=== PATIENT | female | born 1970 | race Asian ===

== ENCOUNTER 2016-06-09 19:51 | Inpatient (IN) | payer BC ==
[~2016-06-09] VITALS: Ht 157.5 cm; Wt 78.9 kg
[2016-06-09] MEDS ORDERED: [UNRECOGNIZED DRUG - CODE] TP (20:21)
[2016-06-09] MEDS ORDERED: ALEN70TA5 PO (20:21)
[2016-06-09] MEDS ORDERED: GABA-587 PO (20:21)
[2016-06-09] MEDS ORDERED: TRAM50TA PO (20:21)
[2016-06-09] MEDS ORDERED: AMIT25TA PO (20:21)
[2016-06-09] MEDS ORDERED: MECL25TA3 PO (20:21)
[2016-06-09] MEDS ORDERED: ASPI-482 PO (20:21)
[2016-06-09] MEDS ORDERED: MIRT15TA3 PO (20:21)
[2016-06-09] MEDS ORDERED: OMEP40CA5 PO (20:21)
[2016-06-09 21:46] LABS: BILIRUBIN,URINE NEGATIVE (NEG); GLUCOSE,URINE NEGATIVE (NEG); NITRITE,URINE NEGATIVE (NEG); PH,URINE 7.5; PROTEIN,URINE NEGATIVE (NEG-TRACE); UROBILINOGEN,URINE 0.2 mg/dL (0.2 mg/dL)
[2016-06-09 22:01] LABS: BACTERIA,URINE MOD /HPF (0-FEW); RBC,URINE 0 /HPF (0-2); WBC,URINE >40 /HPF (0-4)
[2016-06-09] MEDS ORDERED: FENTANYL PF 100 MCG/2 ML VIAL. IV PRN (22:15)
[2016-06-09 22:20] LABS: BASO # 0.1 x10^3/uL (0.0-0.2); BASO % 1 % (0-3); EOS % 1 % (0-3); HEMATOCRIT 38.1 % (36.0-47.0); HEMOGLOBIN 12.7 g/dL (12.0-15.5); LYMPH # 3.6 x10^3/uL (1.0-4.8); LYMPH % 22 % (24-48); MEAN CORPUSCULAR HEMOGLOBIN 26 pg (25-35); MEAN CORPUSCULAR HGB CONC 33 g/dL (31-37); MEAN CORPUSCULAR VOLUME 78 fL (79-100); MONO % 4 % (0-9); NEUT % 72 % (31-73); PLATELET COUNT 204 x10^3/uL (140-400); RED BLOOD COUNT 4.89 x10^6/uL (3.50-5.40); RED CELL DISTRIBUTION WIDTH 14.6 % (11.5-14.5); WHITE BLOOD COUNT 16.3 x10^3/uL (4.0-11.0)
[2016-06-09] MEDS ORDERED: ACETAMINOPHEN 500 MG TABLET PO ONE (22:30)
[2016-06-09] MEDS ORDERED: IV NORMAL SALINE 1000ML BAG 1,000 ML IV ONE (22:30)
[2016-06-09 22:39] LABS: CALCIUM 8.9 mg/dL (8.5-10.1); CREATININE 0.7 mg/dL (0.6-1.0); GFR 90.1; POTASSIUM 3.1 mmol/L (3.5-5.1)
[2016-06-09 22:44] LABS: ALBUMIN 3.7 g/dL (3.4-5.0); ALBUMIN/GLOBULIN RATIO 0.9 (1.0-1.7); TOTAL BILIRUBIN 1.1 mg/dL (0.2-1.0); TOTAL PROTEIN 7.8 g/dL (6.4-8.2)
--- NOTE | 2016-06-09 22:44 | ED.ADGEN ---
Past Medical History Past Medical History: Depression, Other Additional Past Medical Histor: CHRONIC HIP PAIN, CHRONIC LEFT HAND PAIN, OSTEOPOROSIS, VETIGO Past Surgical History: No Surgical History Additional Past Surgical Histo: DENIES Alcohol Use: None Drug Use: None Adult General Chief Complaint Chief Complaint: PAIN ON URINATION HPI HPI Patient is a 45 year old [woman, history of complex regional pain disorder, with persistent left-sided symptoms, who presents to the emergency department with complaint of flank pain, nausea, fever, and worsening of her chronic left- sided pain over the past several days. Patient is primarily [place] speaking, translation is assisted by family patient's request. Patient is also complaining of a mild frontal headache, denies any cough, upper respiratory low respiratory symptoms, any diarrhea or vomiting, mild lower left abdominal pain and left-sided flank pain is present no urinary complaints. Temperature in the emergency department is 100.2. She is not received any antipyretics at home. Heart rate 88, respiratory rate of 20, saturation is 98% on room air. Patient denies any injuries. She did receive her flu vaccination this year. Took tramadol and gabapentin without relief. Review of Systems Review of Systems Constitutional: Denies fever or chills. [] Eyes: Denies change in visual acuity. [] HENT: Denies nasal congestion or sore throat. [] Respiratory: Denies cough or shortness of breath. [] Cardiovascular: Denies chest pain or edema. [] GI: Denies abdominal pain, nausea, vomiting, bloody stools or diarrhea. [] : Denies dysuria. [] Musculoskeletal: Denies back pain or joint pain. [] Integument: Denies rash. [] Neurologic: Denies headache, focal weakness or sensory changes. [] Endocrine: Denies polyuria or polydipsia. [] Lymphatic: Denies swollen glands. [] Psychiatric: Denies depression or anxiety. [] Current Medications Current Medications Current Medications Medications (Trade) Dose Ordered Sig/Abel Start Time Stop Time Status Last Admin Dose Admin Acetaminophen (Tylenol) 1,000 mg 1X ONCE 06/09/16 22:30 06/09/16 22:31 DC 06/09/16 22:14 1,000 MG Azithromycin (Zithromax 500mg Ivpb For Omni) 250 ml @ 250 mls/hr 1X ONCE 06/10/16 00:30 06/10/16 00:36 DC Azithromycin 500 mg/Sodium Chloride 250 ml @ 250 mls/hr Q24H 06/10/16 21:00 06/10/16 21:00 DC Ceftriaxone Sodium 1 gm/ Sodium Chloride 50 ml @ 100 mls/hr Q24H 06/10/16 22:00 Ceftriaxone Sodium 50 ml @ 100 mls/hr 1X ONCE 06/10/16 00:30 06/10/16 00:59 DC 06/10/16 00:41 100 MLS/HR Fentanyl Citrate 50 mcg 50 mcg PRN Q15MIN PRN 06/09/16 22:15 06/10/16 22:14 06/09/16 22:14 50 MCG Sodium Chloride (Iv Sodium Chloride 0.9% 1000ml Bag) 1,000 ml @ 1,000 mls/hr 1X ONCE 06/09/16 22:30 06/09/16 23:29 DC 06/09/16 22:11 1,000 MLS/HR Allergies Allergies Allergies Coded Allergies Type Severity Reaction Last Updated Verified No Known Drug Allergies 06/09/16 No Physical Exam Physical Exam Constitutional: Well developed, well nourished, no acute distress, non-toxic appearance. [] HENT: Normocephalic, atraumatic, bilateral external ears normal, oropharynx moist, no oral exudates, nose normal. [] Eyes: PERRLA, EOMI, conjunctiva normal, no discharge. [] Neck: Normal range of motion, no tenderness, supple, no stridor. [] Cardiovascular:Heart rate regular rhythm, no murmur, S1, S2, rubs or gallops. [] Lungs & Thorax: Bilateral breath sounds clear to auscultation, no wheezing, rhonchi or rales. No chest tenderness or crepitus. [] Abdomen: Bowel sounds normal, soft, no tenderness, no rebound, rigidity, no guarding no masses, no pulsatile masses. [] Skin: Warm, dry, no erythema, no rash. [] Back: No tenderness, positive for left-sided CVA tenderness. [] Extremities: Patient complains of tenderness all patient throughout the left arm and left leg, which is consistent with her chronic pain, experiences "burning", and this region as well, no cyanosis, no clubbing, ROM intact, no edema. [] Neurologic: Alert and oriented X 3, normal motor function, normal sensory function, no focal deficits noted. [] Psychologic: Affect normal, judgement normal, mood normal. [] Current Patient Data Vital Signs Vital Signs Date Time Temp Pulse Resp B/P Pulse Ox O2 Delivery O2 Flow Rate FiO2 06/09/16 22:40 84 20 121/82 98 Room Air 06/09/16 19:51 100.2 100.2 Lab Values Laboratory Tests Test 06/09/16 21:00 06/09/16 22:10 Urine Collection Type Unknown Urine Color Yellow Urine Clarity Clear Urine pH 7.5 Urine Specific [place] <=1.005 Urine Protein Negativemg/dL (NEG-TRACE) Urine Glucose (UA) Negativemg/dL (NEG) Urine Ketones (Stick) Tracemg/dL (NEG) Urine Blood Trace (NEG) Urine Nitrite Negative (NEG) Urine Bilirubin Negative (NEG) Urine Urobilinogen Dipstick 0.2mg/dL (0.2 mg/dL) Urine Leukocyte Esterase Large (NEG) Urine RBC 0/HPF (0-2) Urine WBC >40/HPF (0-4) Urine Bacteria Mod/HPF (0-FEW) White Blood Count 16.3x10^3/uL (4.0-11.0) H Red Blood Count 4.89x10^6/uL (3.50-5.40) Hemoglobin 12.7g/dL (12.0-15.5) Hematocrit 38.1% (36.0-47.0) Mean Corpuscular Volume 78fL (79-100) L Mean Corpuscular Hemoglobin 26pg (25-35) Mean Corpuscular Hemoglobin Concent 33g/dL (31-37) Red Cell Distribution Width 14.6% (11.5-14.5) H Platelet Count 204x10^3/uL (140-400) Neutrophils (%) (Auto) 72% (31-73) Lymphocytes (%) (Auto) 22% (24-48) L Monocytes (%) (Auto) 4% (0-9) Eosinophils (%) (Auto) 1% (0-3) Basophils (%) (Auto) 1% (0-3) Neutrophils # (Auto) 11.7x10^3uL (1.8-7.7) H Lymphocytes # (Auto) 3.6x10^3/uL (1.0-4.8) Monocytes # (Auto) 0.7x10^3/uL (0.0-1.1) Eosinophils # (Auto) 0.2x10^3/uL (0.0-0.7) Basophils # (Auto) 0.1x10^3/uL (0.0-0.2) Sodium Level 139mmol/L (136-145) Potassium Level 3.1mmol/L (3.5-5.1) L Chloride Level 102mmol/L (98-107) Carbon Dioxide Level 23mmol/L (21-32) Anion Gap 14 (6-14) Blood Urea Nitrogen 7mg/dL (7-20) Creatinine 0.7mg/dL (0.6-1.0) Estimated GFR (Cockcroft-Gault) 90.1 BUN/Creatinine Ratio 10 (6-20) Glucose Level 94mg/dL (70-99) Calcium Level 8.9mg/dL (8.5-10.1) Total Bilirubin 1.1mg/dL (0.2-1.0) H Aspartate Amino Transferase (AST) 37U/L (15-37) Alanine Aminotransferase (ALT) 49U/L (14-59) Alkaline Phosphatase 61U/L (46-116) Total Protein 7.8g/dL (6.4-8.2) Albumin 3.7g/dL (3.4-5.0) Albumin/Globulin Ratio 0.9 (1.0-1.7) L Influenza Type A Antigen Negative (NEGATIVE) Influenza Type B Antigen Negative (NEGATIVE) Laboratory Tests 06/09/16 22:10 Laboratory Tests 06/09/16 22:10 EKG EKG ECG: Rhythm strip: Sinus rhythm, heart rate 82 beats minute, no ectopy. As interpreted by me. [] Radiology/Procedures Radiology/Procedures [] [facility] [address] [place] [address] IMAGING REPORT Signed PATIENT: LUIS MANUEL BATES ACCOUNT: [id number] : 1970 LOCATION: ER AGE: 45 SEX: F EXAM STATUS: REG ER ORD. PHYSICIAN: GABBIE VALENZUELA DO REASON: L flank pain PROCEDURE: ABDOMEN PELVIS WO CONTRAST PROCEDURE CT abdomen and pelvis without intravenous contrast. HISTORY Severe left flank pain. TECHNIQUE Helical CT of the abdomen and pelvis was performed without intravenous or oral contrast. Exposure: One or more of the following individualized dose reduction techniques were utilized for this examination: 1. Automated exposure control. 2. Adjustment of the mA and/or kV according to patient size. 3. Use of iterative reconstruction technique. COMPARISON None. FINDINGS Evaluation of solid organs is limited by lack of intravenous contrast. Evaluation of enteric structures may be limited by lack of oral contrast. Fatty liver disease is seen. Spleen, pancreas, gallbladder, and bilateral adrenal glands are unremarkable. Bilateral kidneys and ureters are free of stone or obstruction. No bowel obstruction or inflammation is seen. Appendix is without evidence of inflammation. Urinary bladder is unremarkable. Uterus and adnexa have unremarkable CT appearance. Urinary bladder is unremarkable. No free air or free fluid is seen in the abdomen or pelvis. IMPRESSION 1. No acute abnormality identified in the abdomen or pelvis. 2. No evidence of urinary stone. 3. Fatty liver disease. Electronically signed by: Marco Gloria MD (Jun 09, 2016 23:25:29) DICTATED and SIGNED BY: MARCO GLORIA MD DATE: 06/09/16 0245 CC: GABBIE VALENZUELA DO; JACOB GOETZ MD ~ Course & Med Decision Making Course & Med Decision Making Pertinent Labs and Imaging studies reviewed. (See chart for details) Patient mildly diaphoretic, appears uncomfortable in the emergency department. Left sided flank pain, with fever, urinalysis reveals greater than 40 WBCs with bacteria, leukocytosis noted with a white count of 16.2. Concern for possible pyelonephritis, due to patient's discomfort with flank pain and abdominal pain with nausea, laboratory studies, CT CT of the abdomen and pelvis obtained to rule out any evidence of infection or stone. CT reveals no evidence of acute abnormalities. On reevaluation, patient states she is feeling somewhat better after receiving pain medication IV fluids, antinausea medication. I did discuss findings with patient, at this time she still is expressing significant discomfort, nausea, and is agreeable for admission to the hospital for treatment of fever, pain, and IV fluids and antibiotics for pyelonephritis. Ceftriaxone initiated in the ED. Admit to Dr. Chase of internal medicine, full admission to the to the medical surgical floor, as her vital signs remained stable at this point, with bridge orders entered per request. Dragon Disclaimer Dragon Disclaimer This electronic medical record was generated, in whole or in part, using a voice recognition dictation system. Departure Impression: Primary Impression: Pyelonephritis Additional Impression: Complex regional pain syndrome Disposition: ADMITTED INPATIENT Admitting Physician: Leila Chase Condition: IMPROVED Problem Qualifiers Additional Impression: Complex regional pain syndrome Complex regional pain syndrome affected site: lower extremity Laterality: left GABBIE VALENZUELA DO Jun 09, 2016 22:43
[2016-06-09 22:46] LABS: OBC FLU VALID
--- NOTE | 2016-06-09 23:26 | RAD ---
PROCEDURE CT abdomen and pelvis without intravenous contrast. HISTORY Severe left flank pain. TECHNIQUE Helical CT of the abdomen and pelvis was performed without intravenous or oral contrast. Exposure: One or more of the following individualized dose reduction techniques were utilized for this examination: 1. Automated exposure control. 2. Adjustment of the mA and/or kV according to patient size. 3. Use of iterative reconstruction technique. COMPARISON None. FINDINGS Evaluation of solid organs is limited by lack of intravenous contrast. Evaluation of enteric structures may be limited by lack of oral contrast. Fatty liver disease is seen. Spleen, pancreas, gallbladder, and bilateral adrenal glands are unremarkable. Bilateral kidneys and ureters are free of stone or obstruction. No bowel obstruction or inflammation is seen. Appendix is without evidence of inflammation. Urinary bladder is unremarkable. Uterus and adnexa have unremarkable CT appearance. Urinary bladder is unremarkable. No free air or free fluid is seen in the abdomen or pelvis. IMPRESSION 1. No acute abnormality identified in the abdomen or pelvis. 2. No evidence of urinary stone. 3. Fatty liver disease. Electronically signed by: Marco De León MD (Jun 09, 2016 23:25:29)
[2016-06-10] MEDS ORDERED: CEFTRIAXONE SODIUM 1 GM in IV NORMAL SALINE 100ML 100 ML IV SCH ×2
[2016-06-10] MEDS ORDERED: AZITHRMYCN 500MG IVPB FOR OMNI 250 ML IV ONE (00:30)
[2016-06-10] MEDS ORDERED: CEFTRIAXONE 1GM IVPB FOR OMNI 50 ML IV ONE (00:30)
[2016-06-10] MEDS ORDERED: ONDANSETRON PF 4 MG/2 ML VIAL. IV PRN ×2 (01:15→14:15)
[2016-06-10] MEDS: IV NORMAL SALINE 1000ML BAG 1,000 ML IV SCH ×3 (01:43→16:28)
[2016-06-10 02:00] VITALS: BP 116/67
[2016-06-10] MEDS ORDERED: POTASSIUM CHLORIDE 20 MEQ/15 ML ORAL LIQUID. PO ONE (02:00)
[2016-06-10] MEDS: MORPHINE SULFATE 4 MG/ML DISP.SYRIN. IV PRN ×2 (03:03→07:48)
[2016-06-10 07:00] VITALS: BP 96/61
[2016-06-10 11:00] VITALS: BP 107/68
[2016-06-10] MEDS ORDERED: TRAMADOL 50 MG TABLET. PO PRN (12:30)
[2016-06-10] MEDS ORDERED: MECLIZINE HCL 12.5 MG TABLET. PO PRN (12:45)
[2016-06-10] MEDS: ASPIRIN ENTERIC COATED 81 MG TABLET.DR. PO SCH (12:53)
--- NOTE | 2016-06-10 13:18 | RAD ---
Pelvis with both hips, 3 views, 06/10/2016: History: Bilateral hip pain No fracture or dislocation is identified. No destructive bony lesion is seen. The hip joints are fairly well-maintained with only mild marginal spurring. The periarticular soft tissues are unremarkable. IMPRESSION: No acute pelvic or hip abnormality is detected.
[2016-06-10 13:19] LABS: CREATINE KINASE 61 U/L (26-192)
[2016-06-10 13:20] LABS: CKMB MASS < 0.5 ng/mL (0.0-3.6)
[2016-06-10] MEDS: GABAPENTIN 400 MG CAPSULE. PO SCH ×2 (13:53→19:49)
[2016-06-10] MEDS: ACETAMINOPHEN 325 MG TABLET. PO PRN ×2 (13:58→19:48)
--- NOTE | 2016-06-10 14:20 | PDOC1 ---
History and Physical Date of Admission Date of Admission 06/10/16 Identification/Chief Complaint Chief Complaint whole body pain, bl hip pain Problems: Source Source: Chart review, Patient History of Present Illness History of Present Illness HPI Patient is a 45 year old [woman, history of complex regional pain disorder, with persistent left-sided symptoms, comes for worsening pain yesterday. Pt doesnot speak [place], from [employer], her son is translating at bedside. Son said pt has been having whole body pain for 2 years, fu with [facility],left shoulder, hip pain is worse that right side. Basically pt feels severe whole body pain, shoulder pain, bl hip pain, BL lower ABD pain, bl legs pain, ( not knee pain) nausea, no Vomiting, fever, chills, dysuria, hematuria, urgency ,frequency. abd CT neg. T 100.2 in ER. Past Medical History Past Medical History , with persistent left-sided symptoms, comes for worsening pain yesterday. Pt doesnot speak [place], from [employer], her s Past Surgical History Past Surgical History: No pertinent history Family History Family History: No Significant Social History Smoke: No ALCOHOL: none Drugs: None Current Problem List Problem List Problems Medical Problems: (1) Complex regional pain syndrome Status: Acute (2) Pyelonephritis Status: Acute Current Medications Current Medications Current Medications Medications (Trade) Dose Ordered Sig/Abel Start Time Stop Time Status Last Admin Dose Admin Acetaminophen (Tylenol) 650 mg PRN Q4HRS PRN 06/10/16 01:15 06/11/16 01:14 06/10/16 13:58 650 MG Amitriptyline HCl (Elavil) 25 mg QHS 06/10/16 21:00 Aspirin (Ecotrin) 81 mg DAILY 06/10/16 13:00 06/10/16 12:53 81 MG Azithromycin (Zithromax 500mg Ivpb For Omni) 250 ml @ 250 mls/hr 1X ONCE 06/10/16 00:30 06/10/16 00:36 DC Azithromycin 500 mg/Sodium Chloride 250 ml @ 250 mls/hr Q24H 06/10/16 21:00 06/10/16 21:00 DC Ceftriaxone Sodium 1 gm/ Sodium Chloride 50 ml @ 100 mls/hr Q24H 06/10/16 22:00 Ceftriaxone Sodium 50 ml @ 100 mls/hr 1X ONCE 06/10/16 00:30 06/10/16 00:59 DC 06/10/16 00:41 100 MLS/HR Fentanyl Citrate 50 mcg 50 mcg PRN Q15MIN PRN 06/09/16 22:15 06/10/16 03:00 DC 06/09/16 22:14 50 MCG Gabapentin (Neurontin) 400 mg TID 06/10/16 14:00 Meclizine HCl (Antivert) 25 mg PRN TID PRN 06/10/16 12:45 Mirtazapine (Remeron) 15 mg QHS 06/10/16 21:00 Morphine Sulfate 4 mg 4 mg PRN Q2HR PRN 06/10/16 01:15 06/11/16 01:14 06/10/16 07:48 4 MG Non-Formulary Medication 1 tab WEEKLY 06/17/16 09:00 06/17/16 09:00 DC Ondansetron HCl (Zofran) 4 mg PRN Q8HRS PRN 06/10/16 01:15 06/11/16 01:14 06/10/16 07:49 4 MG Pantoprazole Sodium (Protonix) 40 mg DAILYAC 06/10/16 16:30 Potassium Chloride (KCl Oral Soln) 40 meq 1X ONCE 06/10/16 02:00 06/10/16 02:01 DC 06/10/16 03:02 40 MEQ Sodium Chloride (Iv Sodium Chloride 0.9% 1000ml Bag) 1,000 ml @ 125 mls/hr Q8H 06/10/16 01:14 06/11/16 01:13 06/10/16 03:04 125 MLS/HR Tramadol HCl (Ultram) 50 mg PRN Q8HRS PRN 06/10/16 12:30 Allergies Allergies Allergies Coded Allergies Type Severity Reaction Last Updated Verified No Known Drug Allergies 06/09/16 No ROS Review of System CONSTITUTIONAL: No fever or chills EYES: No recent changes SKIN: No rash or itching CARDIOVASCULAR: No chest pain, syncope, palpitations, or edema RESPIRATORY: No SOB or cough GASTROINTESTINAL: No nausea, vomiting or abdominal pain NEUROLOGICAL: No headaches or weakness ENDOCRINE: No cold or heat intolerance GENITOURINARY: No urgency or frequency of urination MUSCULOSKELETAL: No back pain or joint pain LYMPHATICS: No enlarged lymph nodes PSYCHIATRIC: No anxiety or depression Physical Exam Physical Exam GEN.: No apparent distress. Alert and oriented. HEENT: Head is normocephalic, atraumatic NECK: Supple. LUNGS: Clear to auscultation. HEART: RRR, S1, S2 present. Peripheral pulses intact ABDOMEN: Soft, Positive bowel sounds. EXTREMITIES: Without any cyanosis. NEUROLOGIC: Normal speech, normal tone PSYCHIATRIC: Normal affect, normal mood. SKIN: No ulcerations tenderness at bl shoulder, bl lower abd , hips, bl legs. Vitals Vitals Vital Signs Date Time Temp Pulse Resp B/P Pulse Ox O2 Delivery O2 Flow Rate FiO2 06/10/16 11:00 97.6 56 18 107/68 100 Nasal Cannula 2.0 97.6 Labs Labs Laboratory Tests Test 06/09/16 21:00 06/09/16 22:10 06/10/16 12:40 Urine Collection Type Unknown Urine Color Yellow Urine Clarity Clear Urine pH 7.5 Urine Specific [place] <=1.005 Urine Protein Negativemg/dL (NEG-TRACE) Urine Glucose (UA) Negativemg/dL (NEG) Urine Ketones (Stick) Tracemg/dL (NEG) Urine Blood Trace (NEG) Urine Nitrite Negative (NEG) Urine Bilirubin Negative (NEG) Urine Urobilinogen Dipstick 0.2mg/dL (0.2 mg/dL) Urine Leukocyte Esterase Large (NEG) Urine RBC 0/HPF (0-2) Urine WBC >40/HPF (0-4) Urine Bacteria Mod/HPF (0-FEW) White Blood Count 16.3x10^3/uL (4.0-11.0) Red Blood Count 4.89x10^6/uL (3.50-5.40) Hemoglobin 12.7g/dL (12.0-15.5) Hematocrit 38.1% (36.0-47.0) Mean Corpuscular Volume 78fL (79-100) Mean Corpuscular Hemoglobin 26pg (25-35) Mean Corpuscular Hemoglobin Concent 33g/dL (31-37) Red Cell Distribution Width 14.6% (11.5-14.5) Platelet Count 204x10^3/uL (140-400) Neutrophils (%) (Auto) 72% (31-73) Lymphocytes (%) (Auto) 22% (24-48) Monocytes (%) (Auto) 4% (0-9) Eosinophils (%) (Auto) 1% (0-3) Basophils (%) (Auto) 1% (0-3) Neutrophils # (Auto) 11.7x10^3uL (1.8-7.7) Lymphocytes # (Auto) 3.6x10^3/uL (1.0-4.8) Monocytes # (Auto) 0.7x10^3/uL (0.0-1.1) Eosinophils # (Auto) 0.2x10^3/uL (0.0-0.7) Basophils # (Auto) 0.1x10^3/uL (0.0-0.2) Sodium Level 139mmol/L (136-145) Potassium Level 3.1mmol/L (3.5-5.1) Chloride Level 102mmol/L (98-107) Carbon Dioxide Level 23mmol/L (21-32) Anion Gap 14 (6-14) Blood Urea Nitrogen 7mg/dL (7-20) Creatinine 0.7mg/dL (0.6-1.0) Estimated GFR (Cockcroft-Gault) 90.1 BUN/Creatinine Ratio 10 (6-20) Glucose Level 94mg/dL (70-99) Calcium Level 8.9mg/dL (8.5-10.1) Total Bilirubin 1.1mg/dL (0.2-1.0) Aspartate Amino Transf (AST/SGOT) 37U/L (15-37) Alanine Aminotransferase (ALT/SGPT) 49U/L (14-59) Alkaline Phosphatase 61U/L (46-116) Total Protein 7.8g/dL (6.4-8.2) Albumin 3.7g/dL (3.4-5.0) Albumin/Globulin Ratio 0.9 (1.0-1.7) Influenza Type A Antigen Negative (NEGATIVE) Influenza Type B Antigen Negative (NEGATIVE) Erythrocyte Sedimentation Rate 39 (0-25) Creatine Kinase 61U/L (26-192) Creatine Kinase MB (Mass) < 0.5ng/mL (0.0-3.6) Creatine Kinase MB Relative Index % (0-4) Laboratory Tests Test 06/09/16 21:00 06/09/16 22:10 06/10/16 12:40 Urine Collection Type Unknown Urine Color Yellow Urine Clarity Clear Urine pH 7.5 Urine Specific [place] <=1.005 Urine Protein Negativemg/dL (NEG-TRACE) Urine Glucose (UA) Negativemg/dL (NEG) Urine Ketones (Stick) Tracemg/dL (NEG) Urine Blood Trace (NEG) Urine Nitrite Negative (NEG) Urine Bilirubin Negative (NEG) Urine Urobilinogen Dipstick 0.2mg/dL (0.2 mg/dL) Urine Leukocyte Esterase Large (NEG) Urine RBC 0/HPF (0-2) Urine WBC >40/HPF (0-4) Urine Bacteria Mod/HPF (0-FEW) White Blood Count 16.3x10^3/uL (4.0-11.0) Red Blood Count 4.89x10^6/uL (3.50-5.40) Hemoglobin 12.7g/dL (12.0-15.5) Hematocrit 38.1% (36.0-47.0) Mean Corpuscular Volume 78fL (79-100) Mean Corpuscular Hemoglobin 26pg (25-35) Mean Corpuscular Hemoglobin Concent 33g/dL (31-37) Red Cell Distribution Width 14.6% (11.5-14.5) Platelet Count 204x10^3/uL (140-400) Neutrophils (%) (Auto) 72% (31-73) Lymphocytes (%) (Auto) 22% (24-48) Monocytes (%) (Auto) 4% (0-9) Eosinophils (%) (Auto) 1% (0-3) Basophils (%) (Auto) 1% (0-3) Neutrophils # (Auto) 11.7x10^3uL (1.8-7.7) Lymphocytes # (Auto) 3.6x10^3/uL (1.0-4.8) Monocytes # (Auto) 0.7x10^3/uL (0.0-1.1) Eosinophils # (Auto) 0.2x10^3/uL (0.0-0.7) Basophils # (Auto) 0.1x10^3/uL (0.0-0.2) Sodium Level 139mmol/L (136-145) Potassium Level 3.1mmol/L (3.5-5.1) Chloride Level 102mmol/L (98-107) Carbon Dioxide Level 23mmol/L (21-32) Anion Gap 14 (6-14) Blood Urea Nitrogen 7mg/dL (7-20) Creatinine 0.7mg/dL (0.6-1.0) Estimated GFR (Cockcroft-Gault) 90.1 BUN/Creatinine Ratio 10 (6-20) Glucose Level 94mg/dL (70-99) Calcium Level 8.9mg/dL (8.5-10.1) Total Bilirubin 1.1mg/dL (0.2-1.0) Aspartate Amino Transf (AST/SGOT) 37U/L (15-37) Alanine Aminotransferase (ALT/SGPT) 49U/L (14-59) Alkaline Phosphatase 61U/L (46-116) Total Protein 7.8g/dL (6.4-8.2) Albumin 3.7g/dL (3.4-5.0) Albumin/Globulin Ratio 0.9 (1.0-1.7) Influenza Type A Antigen Negative (NEGATIVE) Influenza Type B Antigen Negative (NEGATIVE) Erythrocyte Sedimentation Rate 39 (0-25) Creatine Kinase 61U/L (26-192) Creatine Kinase MB (Mass) < 0.5ng/mL (0.0-3.6) Creatine Kinase MB Relative Index % (0-4) VTE Prophylaxis Ordered VTE Prophylaxis Devices: Yes VTE Pharmacological Prophylaxi: Yes Assessment/Plan Assessment/Plan 1. worsening chronic complex regional pain disorder, fibromyalgia? 2. possible UTI with pyelonephritis 3. obesity 4. chronic bl hip and left hand pain 5. osteoporesis 6. h/o vertigo 7. depression 8. hypokalemia plan; 1. dr. Wyman consult 2. ptot 3. cont home meds, off prednisone now 4. fu ucx, ceftriaxone for now hip xr normal CXR 5. dvt ppx replete K labs tmr ELISEO TOMLIN MD Jun 10, 2016 14:20
[2016-06-10 15:00] VITALS: BP 121/70
[2016-06-10] MEDS: ENOXAPARIN 40 MG/0.4 ML DISP.SYRIN. SQ SCH (16:06)
[2016-06-10] MEDS: PANTOPRAZOLE 40 MG TABLET. PO SCH (16:07)
[2016-06-10 18:12] LABS: RHEUMATOID FACTOR <10.0 IU/mL (0.0-13.9)
[2016-06-10] MEDS ORDERED: methylPREDNISolone ACETATE 40 MG/ML VIAL. IM ONE (18:30)
[2016-06-10] MEDS ORDERED: BUPIVACAINE MPF 0.25% 10 ML VIAL. IJ ONE (18:30)
[2016-06-10 19:33] VITALS: BP 92/54
[2016-06-10] MEDS ORDERED: AZITHROMYCIN 500 MG in IV NORMAL SALINE 250ML 250 ML IV SCH (21:00)
[2016-06-10] MEDS: MIRTAZAPINE 15 MG TABLET PO SCH (21:22)
[2016-06-10] MEDS: AMITRIPTYLINE HCL 25 MG TABLET PO SCH (21:22)
[2016-06-10] MEDS: CEFTRIAXONE SODIUM 1 GM in IV NORMAL SALINE 50ML 50 ML IV SCH (22:32)
[2016-06-10 23:37] VITALS: BP 90/40
[2016-06-11] VITALS (7 sets, daily range): BP systolic 81–126; BP diastolic 51–84
[2016-06-11] MEDS: ACETAMINOPHEN 325 MG TABLET. PO PRN ×2 (02:30→21:18)
[2016-06-11 06:54] LABS: BASO % 0 % (0-3); EOS % 5 % (0-3); HEMATOCRIT 35.7 % (36.0-47.0); HEMOGLOBIN 11.7 g/dL (12.0-15.5); LYMPH # 2.2 x10^3/uL (1.0-4.8); LYMPH % 27 % (24-48); MEAN CORPUSCULAR HEMOGLOBIN 26 pg (25-35); MEAN CORPUSCULAR HGB CONC 33 g/dL (31-37); MEAN CORPUSCULAR VOLUME 79 fL (79-100); MONO % 7 % (0-9); NEUT % 61 % (31-73); PLATELET COUNT 184 x10^3/uL (140-400); RED BLOOD COUNT 4.51 x10^6/uL (3.50-5.40); RED CELL DISTRIBUTION WIDTH 14.7 % (11.5-14.5); WHITE BLOOD COUNT 8.4 x10^3/uL (4.0-11.0)
--- NOTE | 2016-06-11 07:03 | CONS ---
DATE OF CONSULTATION: 06/10/2016 ATTENDING PHYSICIAN: Dr. Chase. The patient was seen at the request of Dr. Chase for rehab evaluation. She is in room #400. HISTORY OF PRESENT ILLNESS: This is a 45-year-old, [place], right-handed female patient, with numbness, weakness and pain over left side of her body going on for about 2 years, being followed at [facility]. The patient was admitted through the Emergency Room this afternoon with whole body pain mainly on the left side. She is having difficulty with her left hip pain interfering with her mobility. The patient was found with urinary tract infection and being treated for it. The patient denies any trouble with her bowel or bladder control. She admits some difficulty with swallowing. The patient lives with her and children in [facility]. HANS ZIEGLER MD DR: NILDA/nts JOB#: [id number] / [id number]
[2016-06-11 07:06] LABS: CALCIUM 8.4 mg/dL (8.5-10.1); CREATININE 0.6 mg/dL (0.6-1.0); GFR 107.6; POTASSIUM 4.1 mmol/L (3.5-5.1)
--- NOTE | 2016-06-11 07:19 | CONS ---
DATE OF CONSULTATION: 06/10/2016 ATTENDING PHYSICIAN: Dr. Chase. The patient was seen at the request of Dr. Chase for rehab evaluation. HISTORY OF PRESENT ILLNESS: This is a 45-year-old, right-handed female from [facility], who has [place] living [place] this country [place] about 8 [place]. The patient with left-sided numbness, weakness and pain going on for about 2 years, being followed at [facility]. The patient lives at home with her family, had a flight of stairs to manage, and she has been basically independent with her mobility and most of the aspects of her self-care despite significant weakness of her left hand. She admits some difficulty with swallowing, but not on a special diet. She was admitted through the Emergency Room this afternoon with whole body pain mainly on the left side. The patient denies any recent fall, but sometimes she falls down. The patient is being followed with a diagnosis of urinary tract infection, but she denies any dysuria or urinary frequency or urgency. The patient denies any trouble with bowel or bladder control. The patient admits left hip pain interfering with her mobility recently. She had radiological studies which failed to reveal any acute abnormality around hip or pelvis or abdomen. PHYSICAL EXAMINATION: Today revealed a middle-aged female. She is alert, oriented to time, place, person and circumstance, and follows commands appropriately, moves all 4 extremities voluntarily. The patient had no voluntary movements of her left hand fingers except thumb. She had significant weakness of left upper ____ muscles, more so of hand intrinsic muscles. The patient overall had 4+/5 grade muscle strength in her right upper extremity and both lower extremities. Deep tendon reflexes are decreased overall. She had decreased touch and pinprick sensation over left side of her body. She had positive Tinel sign over right median nerve at the wrist and over ulnar nerve at the wrist and elbow. Negative Tinel sign over left median nerve at the wrist and over ulnar nerve at the wrist and elbow. She had tenderness to palpation over left cervical paraspinal muscles extending over to posterior shoulder girdle muscles, over left shoulder and over thoracic and lumbar paraspinal muscles extending over to sacroiliac joint area and left trochanteric bursa. Pain-free range of motion on both hip joints. Crepitus on range of motion of both knee joints without any obvious knee joint effusion. Straight leg raising test is negative bilaterally. She had some pain on range of motion of left shoulder. Her skin is intact at this time. She is independent with bed mobility and transfers. I have not tested her ambulation skills at this time. ASSESSMENT: A middle-aged female with left hemiparesis, with associated cervical, paraspinal, posterior shoulder girdle, thoracic and lumbar paraspinal muscle strain, and left shoulder tendinitis, and probable associated degenerative disk disease of lumbar vertebrae without any clinical evidence of ongoing lumbar radiculopathy, left trochanteric bursitis, degenerative joint disease of her knees without much pain, urinary tract infection, and some difficulty with swallowing. RECOMMENDATIONS: At her request, I have injected painful left trochanteric bursa with Marcaine and Depo-Medrol solution under aseptic skin technique after skin preparation using alcohol swab. She tolerated the procedure satisfactorily. Agree with the plan for Physical Therapy, Occupational Therapy and Speech Pathology to see her. Hopefully home with outpatient followup when she is medically stable. To obtain records from [facility] to make sure she does not have any cerebrovascular accident. HANS ZIEGLER MD DR: NILDA/shefali JOB#: [id number] / [id number]
[2016-06-11] MEDS: GABAPENTIN 400 MG CAPSULE. PO SCH ×3 (07:51→21:00)
[2016-06-11] MEDS: ASPIRIN ENTERIC COATED 81 MG TABLET.DR. PO SCH (07:51)
[2016-06-11] MEDS: PANTOPRAZOLE 40 MG TABLET. PO SCH (07:51)
[2016-06-11] MEDS ORDERED: methylPREDNISolone ACETATE 40 MG/ML VIAL. IM ONE (10:30)
[2016-06-11] MEDS ORDERED: BUPIVACAINE MPF 0.25% 10 ML VIAL. IJ ONE (10:30)
--- NOTE | 2016-06-11 10:41 | RAD ---
Indication cough. Weakness. PA and lateral views of the chest were obtained. Comparison is made to an examination 11/18/2009. Heart size is at the upper limits of normal. There is no congestive heart failure. There is no focal infiltrate. Significant pleural fluid is not present. There is no pneumothorax. The stomach is distended with fluid and gas. IMPRESSION: No acute or focal process is seen in the chest
--- NOTE | 2016-06-11 11:07 | PDOC ---
PROGRESS NOTES Subjective Subjective She feels better with left hip injection and admits continued neck and shoulder pain and would like to have injection in her neck. Objective Objective Vital Signs Date Time Temp Pulse Resp B/P Pulse Ox O2 Delivery O2 Flow Rate FiO2 06/11/16 07:35 Room Air 06/11/16 07:00 97.6 42 16 111/65 96 97.6 06/11/16 02:58 2.0 Intake and Output 06/11/16 07:00 Intake Total 2534 ml Balance 2534 ml Intake Oral 500 ml IV Total 2034 ml # Voids 6 Physical Exam Physical Exam She is alert,comfortable and her 3 children at bedside to help with communication.She is independent with her mobility and most of her self care but she can use a cane to walk to help with healing of her left trochanteric bursitis.She is being treated with diagnosis of regional pain syndrome by [facility] neurology. I am not sure that can explain her numbness left side of her body and face and weakness of her left hand.She apparently had radiologic studies to rule out CVA.I am not sure she had any radiologic studies of her cervical and lumbar spine.She had tenderness to palpation over left cervical,thoracic and lumbar paraspinal,left posterior shoulder girdle muscles,sacroiliac joint.SLR test is negative. She had some limitation of left shoulder at extremes of abduction and external rotation. Assessment Assessment Problems Medical Problems: (1) Complex regional pain syndrome Status: Acute (2) Pyelonephritis Status: Acute Plan Plan of Care At her request,I have injected painful left cervical paraspinal muscles under aseptic skin technique,and she tolerated the procedure satisfactorily without any side effects.Home with out patient follow up when medically stable.She can benefit from stronger narcotic like tylenol with codeine#3,or hydrocodone for pain disturbing her sleep as she is having sleep disturbance from pain despite taking amitriptyline and gabapentin and tramadol.I will be glad to see her for follow up on as needed basis. Comment Review of Relevant I have reviewed the following items yvonne (where applicable) has been applied. Labs Laboratory Tests Test 06/09/16 21:00 06/09/16 22:10 06/10/16 12:40 06/11/16 05:50 Urine Collection Type Unknown Urine Color Yellow Urine Clarity Clear Urine pH 7.5 Urine Specific [place] <=1.005 Urine Protein Negativemg/dL (NEG-TRACE) Urine Glucose (UA) Negativemg/dL (NEG) Urine Ketones (Stick) Tracemg/dL (NEG) Urine Blood Trace (NEG) Urine Nitrite Negative (NEG) Urine Bilirubin Negative (NEG) Urine Urobilinogen Dipstick 0.2mg/dL (0.2 mg/dL) Urine Leukocyte Esterase Large (NEG) Urine RBC 0/HPF (0-2) Urine WBC >40/HPF (0-4) Urine Bacteria Mod/HPF (0-FEW) White Blood Count 16.3x10^3/uL (4.0-11.0) 8.4x10^3/uL (4.0-11.0) Red Blood Count 4.89x10^6/uL (3.50-5.40) 4.51x10^6/uL (3.50-5.40) Hemoglobin 12.7g/dL (12.0-15.5) 11.7g/dL (12.0-15.5) Hematocrit 38.1% (36.0-47.0) 35.7% (36.0-47.0) Mean Corpuscular Volume 78fL (79-100) 79fL (79-100) Mean Corpuscular Hemoglobin 26pg (25-35) 26pg (25-35) Mean Corpuscular Hemoglobin Concent 33g/dL (31-37) 33g/dL (31-37) Red Cell Distribution Width 14.6% (11.5-14.5) 14.7% (11.5-14.5) Platelet Count 204x10^3/uL (140-400) 184x10^3/uL (140-400) Neutrophils (%) (Auto) 72% (31-73) 61% (31-73) Lymphocytes (%) (Auto) 22% (24-48) 27% (24-48) Monocytes (%) (Auto) 4% (0-9) 7% (0-9) Eosinophils (%) (Auto) 1% (0-3) 5% (0-3) Basophils (%) (Auto) 1% (0-3) 0% (0-3) Neutrophils # (Auto) 11.7x10^3uL (1.8-7.7) 5.1x10^3uL (1.8-7.7) Lymphocytes # (Auto) 3.6x10^3/uL (1.0-4.8) 2.2x10^3/uL (1.0-4.8) Monocytes # (Auto) 0.7x10^3/uL (0.0-1.1) 0.6x10^3/uL (0.0-1.1) Eosinophils # (Auto) 0.2x10^3/uL (0.0-0.7) 0.4x10^3/uL (0.0-0.7) Basophils # (Auto) 0.1x10^3/uL (0.0-0.2) 0.0x10^3/uL (0.0-0.2) Sodium Level 139mmol/L (136-145) 144mmol/L (136-145) Potassium Level 3.1mmol/L (3.5-5.1) 4.1mmol/L (3.5-5.1) Chloride Level 102mmol/L (98-107) 109mmol/L (98-107) Carbon Dioxide Level 23mmol/L (21-32) 25mmol/L (21-32) Anion Gap 14 (6-14) 10 (6-14) Blood Urea Nitrogen 7mg/dL (7-20) 3mg/dL (7-20) Creatinine 0.7mg/dL (0.6-1.0) 0.6mg/dL (0.6-1.0) Estimated GFR (Cockcroft-Gault) 90.1 107.6 BUN/Creatinine Ratio 10 (6-20) Glucose Level 94mg/dL (70-99) 97mg/dL (70-99) Calcium Level 8.9mg/dL (8.5-10.1) 8.4mg/dL (8.5-10.1) Total Bilirubin 1.1mg/dL (0.2-1.0) Aspartate Amino Transf (AST/SGOT) 37U/L (15-37) Alanine Aminotransferase (ALT/SGPT) 49U/L (14-59) Alkaline Phosphatase 61U/L (46-116) Total Protein 7.8g/dL (6.4-8.2) Albumin 3.7g/dL (3.4-5.0) Albumin/Globulin Ratio 0.9 (1.0-1.7) Influenza Type A Antigen Negative (NEGATIVE) Influenza Type B Antigen Negative (NEGATIVE) Erythrocyte Sedimentation Rate 39 (0-25) Creatine Kinase 61U/L (26-192) Creatine Kinase MB (Mass) < 0.5ng/mL (0.0-3.6) Creatine Kinase MB Relative Index % (0-4) Rheumatoid Factor <10.0IU/mL (0.0-13.9) Laboratory Tests Test 06/10/16 12:40 06/11/16 05:50 Erythrocyte Sedimentation Rate 39 (0-25) Creatine Kinase 61U/L (26-192) Creatine Kinase MB (Mass) < 0.5ng/mL (0.0-3.6) Creatine Kinase MB Relative Index % (0-4) Rheumatoid Factor <10.0IU/mL (0.0-13.9) White Blood Count 8.4x10^3/uL (4.0-11.0) Red Blood Count 4.51x10^6/uL (3.50-5.40) Hemoglobin 11.7g/dL (12.0-15.5) Hematocrit 35.7% (36.0-47.0) Mean Corpuscular Volume 79fL (79-100) Mean Corpuscular Hemoglobin 26pg (25-35) Mean Corpuscular Hemoglobin Concent 33g/dL (31-37) Red Cell Distribution Width 14.7% (11.5-14.5) Platelet Count 184x10^3/uL (140-400) Neutrophils (%) (Auto) 61% (31-73) Lymphocytes (%) (Auto) 27% (24-48) Monocytes (%) (Auto) 7% (0-9) Eosinophils (%) (Auto) 5% (0-3) Basophils (%) (Auto) 0% (0-3) Neutrophils # (Auto) 5.1x10^3uL (1.8-7.7) Lymphocytes # (Auto) 2.2x10^3/uL (1.0-4.8) Monocytes # (Auto) 0.6x10^3/uL (0.0-1.1) Eosinophils # (Auto) 0.4x10^3/uL (0.0-0.7) Basophils # (Auto) 0.0x10^3/uL (0.0-0.2) Sodium Level 144mmol/L (136-145) Potassium Level 4.1mmol/L (3.5-5.1) Chloride Level 109mmol/L (98-107) Carbon Dioxide Level 25mmol/L (21-32) Anion Gap 10 (6-14) Blood Urea Nitrogen 3mg/dL (7-20) Creatinine 0.6mg/dL (0.6-1.0) Estimated GFR (Cockcroft-Gault) 107.6 Glucose Level 97mg/dL (70-99) Calcium Level 8.4mg/dL (8.5-10.1) Microbiology 06/09/16 Urine Culture - Preliminary, Resulted 06/09/16 Urine Culture Result 1 (URIEL) - Preliminary, Resulted Medications Current Medications Sodium Chloride (Iv Sodium Chloride 0.9% 1000ml Bag) 1,000 ml @ 1,000 mls/hr 1X ONCE IV Last administered on 06/09/16 22:11; Start 06/09/16 at 22:30; Stop 06/09/16 at 23:29; Status DC Acetaminophen (Tylenol) 1,000 mg 1X ONCE PO Last administered on 06/09/16 22: 14; Start 06/09/16 at 22:30; Stop 06/09/16 at 22:31; Status DC Fentanyl Citrate 50 mcg 50 mcg PRN Q15MIN PRN IV PAIN GREATER THAN 3/10 Last administered on 06/09/16 22:14; Start 06/09/16 at 22:15; Stop 06/10/16 at 03:00 ; Status DC Ceftriaxone Sodium 1 gm/ Sodium Chloride 100 ml @ 200 mls/hr Q24H IV ; Start at 00:00; Status UNV Azithromycin 500 mg/Sodium Chloride 250 ml @ 250 mls/hr Q24H IV ; Start at 21:00; Stop 06/10/16 at 21:00; Status DC Ceftriaxone Sodium 50 ml @ 100 mls/hr 1X ONCE IV Last administered on 00:41; Start 06/10/16 at 00:30; Stop 06/10/16 at 00:59; Status DC Ceftriaxone Sodium 1 gm/ Sodium Chloride 50 ml @ 100 mls/hr Q24H IV Last administered on 06/10/16 22:32; Start 06/10/16 at 22:00 Azithromycin (Zithromax 500mg Ivpb For Omni) 250 ml @ 250 mls/hr 1X ONCE IV ; Start 06/10/16 at 00:30; Stop 06/10/16 at 00:36; Status DC Ondansetron HCl (Zofran) 4 mg PRN Q8HRS PRN IV NAUSEA/VOMITING Last administered on 06/10/16 07:49; Start 06/10/16 at 01:15; Stop 06/11/16 at 01:14 ; Status DC Morphine Sulfate 4 mg 4 mg PRN Q2HR PRN IV SEVERE PAIN Last administered on 07:48; Start 06/10/16 at 01:15; Stop 06/11/16 at 01:14; Status DC Sodium Chloride (Iv Sodium Chloride 0.9% 1000ml Bag) 1,000 ml @ 125 mls/hr Q8H IV Last administered on 06/10/16 03:04; Start 06/10/16 at 01:14; Stop at 01:13; Status DC Acetaminophen (Tylenol) 650 mg PRN Q4HRS PRN PO FEVER Last administered on 06/10 19:48; Start 06/10/16 at 01:15; Stop 06/11/16 at 01:14; Status DC Potassium Chloride (KCl Oral Soln) 40 meq 1X ONCE PO Last administered on 06/10 03:02; Start 06/10/16 at 02:00; Stop 06/10/16 at 02:01; Status DC Amitriptyline HCl (Elavil) 25 mg QHS PO Last administered on 06/10/16 21:22; Start 06/10/16 at 21:00 Aspirin (Ecotrin) 81 mg DAILY PO Last administered on 06/11/16 07:51; Start at 13:00 Gabapentin (Neurontin) 400 mg TID PO Last administered on 06/11/16 07:51; Start 06/10/16 at 14:00 Mirtazapine (Remeron) 15 mg QHS PO Last administered on 2/17/17at 21:22; Start 06/10/16 at 21:00 Tramadol HCl (Ultram) 50 mg PRN Q8HRS PRN PO PAIN; Start 06/10/16 at 12:30 Non-Formulary Medication 1 tab WEEKLY PO ; Start 06/17/16 at 09:00; Stop at 09:00; Status DC Meclizine HCl (Antivert) 25 mg PRN TID PRN PO DIZZINESS; Start 06/10/16 at 12: 45 Pantoprazole Sodium (Protonix) 40 mg DAILYAC PO Last administered on 06/11/16 07:51; Start 06/10/16 at 16:30 Acetaminophen (Tylenol) 650 mg PRN Q6HRS PRN PO MILD PAIN / TEMP Last administered on 06/11/16 02:30; Start 06/10/16 at 14:15 Ondansetron HCl (Zofran) 4 mg PRN Q6HRS PRN IV NAUSEA/VOMITING; Start 06/10/16 at 14:15 Acetaminophen/ Hydrocodone Bitart (Lortab 5/325) 1 tab PRN Q4HRS PRN PO PAIN; Start 06/10/16 at 14:15 Enoxaparin Sodium (Lovenox 40mg Syringe) 40 mg Q24H SQ Last administered on 16:06; Start 06/10/16 at 15:00 Methylprednisolone Acetate (Depo-Medrol 40mg Vial) 40 mg 1X ONCE IM ; Start at 18:30; Stop 06/10/16 at 18:31; Status DC Bupivacaine HCl (Sensorcaine-Mpf 0.25%) 10 ml 1X ONCE IJ ; Start 06/10/16 at 18 :30; Stop 06/10/16 at 18:31; Status DC Active Scripts Active Reported Tramadol Hcl 50 Mg Tablet 50 Mg PO Q8HRS PRN Omeprazole 40 Mg Capsule. 1 Cap PO DAILY Mirtazapine 15 Mg Tablet 1 Tab PO QHS Meclizine Hcl 25 Mg Tablet 1 Tab PO PRN TID Gabapentin 400 Mg Capsule 400 Mg PO TID Aspir 81 (Aspirin) 81 Mg Tablet.dr 1 Tab PO DAILY Amitriptyline Hcl 25 Mg Tablet 1 Tab PO QHS Alendronate Sodium 70 Mg Tablet 1 Tab PO WEEKLY Vitals/I & O Vital Sign - Last 24 Hours 06/10/16 06/10/16 06/10/16 06/10/16 11:00 15:00 19:33 20:00 Temp 97.6 97.7 97.6 97.6 97.7 97.6 Pulse 56 61 51 Resp 18 B/P 107/68 121/70 92/54 Pulse Ox 100 95 98 O2 Delivery Nasal Cannula Nasal Cannula Nasal Cannula Nasal Cannula O2 Flow Rate 2.0 1.0 2.0 2.0 06/10/16 06/11/16 06/11/16 06/11/16 23:37 02:58 07:00 07:35 Temp 97.7 97.7 97.6 97.7 97.7 97.6 Pulse 66 68 42 Resp 16 B/P 90/40 100/64 111/65 Pulse Ox 97 95 96 O2 Delivery Nasal Cannula Nasal Cannula Room Air Room Air O2 Flow Rate 2.0 2.0 Intake and Output 06/10/16 06/10/16 06/11/16 15:00 23:00 07:00 Intake Total 2534 ml Balance 2534 ml HANS ZIEGLER MD Jun 11, 2016 11:06
[2016-06-11] MEDS ORDERED: HYDROCODONE/APAP 5/325MG TABLET. PO PRN (12:30)
--- NOTE | 2016-06-11 14:15 | PDOC ---
PROGRESS NOTES Chief Complaint Chief Complaint 1. worsening of whole body pain , mainly left side 2. possible UTI with pyelonephritis 3. left upper ext weakness, 2 years 4. chronic bl hip and left hand pain 5. dysphagia 1 month 6. h/o vertigo 7. depression 8. hypokalemia 9. obesity plan; 1. dr. Wyman consulted, post neck and left hip steroid injection, pain better 2. ptot 3. cont home meds, off prednisone now 4. fu ucx, ceftriaxone for now hip xr normal CXR normal 5. dvt ppx replete K labs tmr GI consult, neuro consult check brain and neck MRI, LIPID panel, pt likely had stroke long time ago History of Present Illness History of Present Illness pt has been having whole body pain, mainly on left side for 2 years, was in some hosp for 1 day, wo intervention, wo good diagnosis dysphagia 1 month, swallow eval recommend GI CONSULT Vitals Vitals Vital Signs Date Time Temp Pulse Resp B/P Pulse Ox O2 Delivery O2 Flow Rate FiO2 06/11/16 11:00 98.4 70 20 108/71 97 Room Air 98.4 06/11/16 02:58 2.0 Physical Exam General: Alert, Oriented X3, Cooperative Heart: Regular rate, Normal S1, Normal S2 Lungs: Clear Abdomen: Normal bowel sounds, Soft Extremities: No clubbing, No cyanosis, Other (LEFT HAND STREANGTH 2/5, stiff, likely chronic ) Skin: No rashes Labs LABS Laboratory Tests Test 06/11/16 05:50 White Blood Count 8.4x10^3/uL (4.0-11.0) Red Blood Count 4.51x10^6/uL (3.50-5.40) Hemoglobin 11.7g/dL (12.0-15.5) Hematocrit 35.7% (36.0-47.0) Mean Corpuscular Volume 79fL (79-100) Mean Corpuscular Hemoglobin 26pg (25-35) Mean Corpuscular Hemoglobin Concent 33g/dL (31-37) Red Cell Distribution Width 14.7% (11.5-14.5) Platelet Count 184x10^3/uL (140-400) Neutrophils (%) (Auto) 61% (31-73) Lymphocytes (%) (Auto) 27% (24-48) Monocytes (%) (Auto) 7% (0-9) Eosinophils (%) (Auto) 5% (0-3) Basophils (%) (Auto) 0% (0-3) Neutrophils # (Auto) 5.1x10^3uL (1.8-7.7) Lymphocytes # (Auto) 2.2x10^3/uL (1.0-4.8) Monocytes # (Auto) 0.6x10^3/uL (0.0-1.1) Eosinophils # (Auto) 0.4x10^3/uL (0.0-0.7) Basophils # (Auto) 0.0x10^3/uL (0.0-0.2) Sodium Level 144mmol/L (136-145) Potassium Level 4.1mmol/L (3.5-5.1) Chloride Level 109mmol/L (98-107) Carbon Dioxide Level 25mmol/L (21-32) Anion Gap 10 (6-14) Blood Urea Nitrogen 3mg/dL (7-20) Creatinine 0.6mg/dL (0.6-1.0) Estimated GFR (Cockcroft-Gault) 107.6 Glucose Level 97mg/dL (70-99) Calcium Level 8.4mg/dL (8.5-10.1) Review of Systems Review of Systems no fever, chills, sob or chest pain Assessment and Plan Assessmemt and Plan Problems Medical Problems: (1) Complex regional pain syndrome Status: Acute (2) Pyelonephritis Status: Acute Problems: Comment Review of Relevant I have reviewed the following items yvonne (where applicable) has been applied. Labs Laboratory Tests Test 06/09/16 21:00 06/09/16 22:10 06/10/16 12:40 06/11/16 05:50 Urine Collection Type Unknown Urine Color Yellow Urine Clarity Clear Urine pH 7.5 Urine Specific [place] <=1.005 Urine Protein Negativemg/dL (NEG-TRACE) Urine Glucose (UA) Negativemg/dL (NEG) Urine Ketones (Stick) Tracemg/dL (NEG) Urine Blood Trace (NEG) Urine Nitrite Negative (NEG) Urine Bilirubin Negative (NEG) Urine Urobilinogen Dipstick 0.2mg/dL (0.2 mg/dL) Urine Leukocyte Esterase Large (NEG) Urine RBC 0/HPF (0-2) Urine WBC >40/HPF (0-4) Urine Bacteria Mod/HPF (0-FEW) White Blood Count 16.3x10^3/uL (4.0-11.0) 8.4x10^3/uL (4.0-11.0) Red Blood Count 4.89x10^6/uL (3.50-5.40) 4.51x10^6/uL (3.50-5.40) Hemoglobin 12.7g/dL (12.0-15.5) 11.7g/dL (12.0-15.5) Hematocrit 38.1% (36.0-47.0) 35.7% (36.0-47.0) Mean Corpuscular Volume 78fL (79-100) 79fL (79-100) Mean Corpuscular Hemoglobin 26pg (25-35) 26pg (25-35) Mean Corpuscular Hemoglobin Concent 33g/dL (31-37) 33g/dL (31-37) Red Cell Distribution Width 14.6% (11.5-14.5) 14.7% (11.5-14.5) Platelet Count 204x10^3/uL (140-400) 184x10^3/uL (140-400) Neutrophils (%) (Auto) 72% (31-73) 61% (31-73) Lymphocytes (%) (Auto) 22% (24-48) 27% (24-48) Monocytes (%) (Auto) 4% (0-9) 7% (0-9) Eosinophils (%) (Auto) 1% (0-3) 5% (0-3) Basophils (%) (Auto) 1% (0-3) 0% (0-3) Neutrophils # (Auto) 11.7x10^3uL (1.8-7.7) 5.1x10^3uL (1.8-7.7) Lymphocytes # (Auto) 3.6x10^3/uL (1.0-4.8) 2.2x10^3/uL (1.0-4.8) Monocytes # (Auto) 0.7x10^3/uL (0.0-1.1) 0.6x10^3/uL (0.0-1.1) Eosinophils # (Auto) 0.2x10^3/uL (0.0-0.7) 0.4x10^3/uL (0.0-0.7) Basophils # (Auto) 0.1x10^3/uL (0.0-0.2) 0.0x10^3/uL (0.0-0.2) Sodium Level 139mmol/L (136-145) 144mmol/L (136-145) Potassium Level 3.1mmol/L (3.5-5.1) 4.1mmol/L (3.5-5.1) Chloride Level 102mmol/L (98-107) 109mmol/L (98-107) Carbon Dioxide Level 23mmol/L (21-32) 25mmol/L (21-32) Anion Gap 14 (6-14) 10 (6-14) Blood Urea Nitrogen 7mg/dL (7-20) 3mg/dL (7-20) Creatinine 0.7mg/dL (0.6-1.0) 0.6mg/dL (0.6-1.0) Estimated GFR (Cockcroft-Gault) 90.1 107.6 BUN/Creatinine Ratio 10 (6-20) Glucose Level 94mg/dL (70-99) 97mg/dL (70-99) Calcium Level 8.9mg/dL (8.5-10.1) 8.4mg/dL (8.5-10.1) Total Bilirubin 1.1mg/dL (0.2-1.0) Aspartate Amino Transf (AST/SGOT) 37U/L (15-37) Alanine Aminotransferase (ALT/SGPT) 49U/L (14-59) Alkaline Phosphatase 61U/L (46-116) Total Protein 7.8g/dL (6.4-8.2) Albumin 3.7g/dL (3.4-5.0) Albumin/Globulin Ratio 0.9 (1.0-1.7) Influenza Type A Antigen Negative (NEGATIVE) Influenza Type B Antigen Negative (NEGATIVE) Erythrocyte Sedimentation Rate 39 (0-25) Creatine Kinase 61U/L (26-192) Creatine Kinase MB (Mass) < 0.5ng/mL (0.0-3.6) Creatine Kinase MB Relative Index % (0-4) Rheumatoid Factor <10.0IU/mL (0.0-13.9) Laboratory Tests Test 06/11/16 05:50 White Blood Count 8.4x10^3/uL (4.0-11.0) Red Blood Count 4.51x10^6/uL (3.50-5.40) Hemoglobin 11.7g/dL (12.0-15.5) Hematocrit 35.7% (36.0-47.0) Mean Corpuscular Volume 79fL (79-100) Mean Corpuscular Hemoglobin 26pg (25-35) Mean Corpuscular Hemoglobin Concent 33g/dL (31-37) Red Cell Distribution Width 14.7% (11.5-14.5) Platelet Count 184x10^3/uL (140-400) Neutrophils (%) (Auto) 61% (31-73) Lymphocytes (%) (Auto) 27% (24-48) Monocytes (%) (Auto) 7% (0-9) Eosinophils (%) (Auto) 5% (0-3) Basophils (%) (Auto) 0% (0-3) Neutrophils # (Auto) 5.1x10^3uL (1.8-7.7) Lymphocytes # (Auto) 2.2x10^3/uL (1.0-4.8) Monocytes # (Auto) 0.6x10^3/uL (0.0-1.1) Eosinophils # (Auto) 0.4x10^3/uL (0.0-0.7) Basophils # (Auto) 0.0x10^3/uL (0.0-0.2) Sodium Level 144mmol/L (136-145) Potassium Level 4.1mmol/L (3.5-5.1) Chloride Level 109mmol/L (98-107) Carbon Dioxide Level 25mmol/L (21-32) Anion Gap 10 (6-14) Blood Urea Nitrogen 3mg/dL (7-20) Creatinine 0.6mg/dL (0.6-1.0) Estimated GFR (Cockcroft-Gault) 107.6 Glucose Level 97mg/dL (70-99) Calcium Level 8.4mg/dL (8.5-10.1) Microbiology 06/09/16 Urine Culture - Preliminary, Resulted 06/09/16 Urine Culture Result 1 (URIEL) - Preliminary, Resulted Medications Current Medications Sodium Chloride (Iv Sodium Chloride 0.9% 1000ml Bag) 1,000 ml @ 1,000 mls/hr 1X ONCE IV Last administered on 06/09/16 22:11; Start 06/09/16 at 22:30; Stop 06/09/16 at 23:29; Status DC Acetaminophen (Tylenol) 1,000 mg 1X ONCE PO Last administered on 06/09/16 22: 14; Start 06/09/16 at 22:30; Stop 06/09/16 at 22:31; Status DC Fentanyl Citrate 50 mcg 50 mcg PRN Q15MIN PRN IV PAIN GREATER THAN 3/10 Last administered on 06/09/16 22:14; Start 06/09/16 at 22:15; Stop 06/10/16 at 03:00 ; Status DC Ceftriaxone Sodium 1 gm/ Sodium Chloride 100 ml @ 200 mls/hr Q24H IV ; Start at 00:00; Status UNV Azithromycin 500 mg/Sodium Chloride 250 ml @ 250 mls/hr Q24H IV ; Start at 21:00; Stop 06/10/16 at 21:00; Status DC Ceftriaxone Sodium 50 ml @ 100 mls/hr 1X ONCE IV Last administered on 00:41; Start 06/10/16 at 00:30; Stop 06/10/16 at 00:59; Status DC Ceftriaxone Sodium 1 gm/ Sodium Chloride 50 ml @ 100 mls/hr Q24H IV Last administered on 06/10/16 22:32; Start 06/10/16 at 22:00 Azithromycin (Zithromax 500mg Ivpb For Omni) 250 ml @ 250 mls/hr 1X ONCE IV ; Start 06/10/16 at 00:30; Stop 06/10/16 at 00:36; Status DC Ondansetron HCl (Zofran) 4 mg PRN Q8HRS PRN IV NAUSEA/VOMITING Last administered on 06/10/16 07:49; Start 06/10/16 at 01:15; Stop 06/11/16 at 01:14 ; Status DC Morphine Sulfate 4 mg 4 mg PRN Q2HR PRN IV SEVERE PAIN Last administered on 07:48; Start 06/10/16 at 01:15; Stop 06/11/16 at 01:14; Status DC Sodium Chloride (Iv Sodium Chloride 0.9% 1000ml Bag) 1,000 ml @ 125 mls/hr Q8H IV Last administered on 06/10/16 03:04; Start 06/10/16 at 01:14; Stop at 01:13; Status DC Acetaminophen (Tylenol) 650 mg PRN Q4HRS PRN PO FEVER Last administered on 06/10 19:48; Start 06/10/16 at 01:15; Stop 06/11/16 at 01:14; Status DC Potassium Chloride (KCl Oral Soln) 40 meq 1X ONCE PO Last administered on 06/10 03:02; Start 06/10/16 at 02:00; Stop 06/10/16 at 02:01; Status DC Amitriptyline HCl (Elavil) 25 mg QHS PO Last administered on 06/10/16 21:22; Start 06/10/16 at 21:00 Aspirin (Ecotrin) 81 mg DAILY PO Last administered on 06/11/16 07:51; Start at 13:00 Gabapentin (Neurontin) 400 mg TID PO Last administered on 06/11/16 07:51; Start 06/10/16 at 14:00 Mirtazapine (Remeron) 15 mg QHS PO Last administered on 06/10/16 21:22; Start 06/10/16 at 21:00 Tramadol HCl (Ultram) 50 mg PRN Q8HRS PRN PO PAIN; Start 06/10/16 at 12:30 Non-Formulary Medication 1 tab WEEKLY PO ; Start 06/17/16 at 09:00; Stop at 09:00; Status DC Meclizine HCl (Antivert) 25 mg PRN TID PRN PO DIZZINESS; Start 06/10/16 at 12: 45 Pantoprazole Sodium (Protonix) 40 mg DAILYAC PO Last administered on 06/11/16 07:51; Start 06/10/16 at 16:30 Acetaminophen (Tylenol) 650 mg PRN Q6HRS PRN PO MILD PAIN / TEMP Last administered on 06/11/16 02:30; Start 06/10/16 at 14:15 Ondansetron HCl (Zofran) 4 mg PRN Q6HRS PRN IV NAUSEA/VOMITING; Start 06/10/16 at 14:15 Acetaminophen/ Hydrocodone Bitart (Lortab 5/325) 1 tab PRN Q4HRS PRN PO PAIN; Start 06/10/16 at 14:15 Enoxaparin Sodium (Lovenox 40mg Syringe) 40 mg Q24H SQ Last administered on t 16:06; Start 06/10/16 at 15:00 Methylprednisolone Acetate (Depo-Medrol 40mg Vial) 40 mg 1X ONCE IM ; Start at 18:30; Stop 06/10/16 at 18:31; Status DC Bupivacaine HCl (Sensorcaine-Mpf 0.25%) 10 ml 1X ONCE IJ ; Start 06/10/16 at 18 :30; Stop 06/10/16 at 18:31; Status DC Methylprednisolone Acetate (Depo-Medrol 40mg Vial) 40 mg 1X ONCE IM ; Start at 10:30; Stop 06/11/16 at 10:31; Status DC Bupivacaine HCl (Sensorcaine-Mpf 0.25%) 10 ml 1X ONCE IJ ; Start 06/11/16 at 10 :30; Stop 06/11/16 at 10:31; Status DC Acetaminophen/ Hydrocodone Bitart (Lortab 5/325) 1 tab PRN Q4HRS PRN PO PAIN; Start 06/11/16 at 12:30; Stop 06/11/16 at 13:48; Status DC Active Scripts Active Reported Tramadol Hcl 50 Mg Tablet 50 Mg PO Q8HRS PRN Omeprazole 40 Mg Capsule. 1 Cap PO DAILY Mirtazapine 15 Mg Tablet 1 Tab PO QHS Meclizine Hcl 25 Mg Tablet 1 Tab PO PRN TID Gabapentin 400 Mg Capsule 400 Mg PO TID Aspir 81 (Aspirin) 81 Mg Tablet. 1 Tab PO DAILY Amitriptyline Hcl 25 Mg Tablet 1 Tab PO QHS Alendronate Sodium 70 Mg Tablet 1 Tab PO WEEKLY Vitals/I & O Vital Sign - Last 24 Hours 06/10/16 06/10/16 06/10/16 06/10/16 15:00 19:33 20:00 23:37 Temp 97.7 97.6 97.7 97.7 97.6 97.7 Pulse 61 51 66 Resp 18 18 18 B/P 121/70 92/54 90/40 Pulse Ox 95 98 97 O2 Delivery Nasal Cannula Nasal Cannula Nasal Cannula Nasal Cannula O2 Flow Rate 1.0 2.0 2.0 2.0 06/11/16 06/11/16 06/11/16 06/11/16 02:58 07:00 07:35 11:00 Temp 97.7 97.6 98.4 97.7 97.6 98.4 Pulse 68 42 70 Resp 18 16 20 B/P 100/64 111/65 108/71 Pulse Ox 95 96 97 O2 Delivery Nasal Cannula Room Air Room Air Room Air O2 Flow Rate 2.0 Intake and Output 06/10/16 06/10/16 06/11/16 15:00 23:00 07:00 Intake Total 2534 ml Balance 2534 ml ELISEO TOMLIN MD Jun 11, 2016 14:15
[2016-06-11] MEDS: HYDROCODONE/APAP 5/325MG TABLET. PO PRN (14:50)
[2016-06-11] MEDS: ENOXAPARIN 40 MG/0.4 ML DISP.SYRIN. SQ SCH (14:51)
--- NOTE | 2016-06-11 15:02 | RAD ---
Indication left-sided weakness and pain. Being treated for regional pain syndrome. MRI examination of the head was performed. MRI of the cervical spine was also performed which is the subject of a separate dictation. No prior imaging of the head is available. Imaging sequences which were obtained included axial ADC and DWI maps. A sagittal T1 sequence and a coronal T2 sequence were obtained. Axial T1, T2, FLAIR and gradient echo sequences were also obtained. On the ADC DWI maps no recent or acute infarct is seen. On the gradient echo sequence no hemorrhage is seen. The ventricles and sulci are within normal limits. On the FLAIR sequence there are small areas of increased signal intensity in the deep white matter compatible with microvascular disease. A mass or midline shift is not seen. Acute finding is not apparent. IMPRESSION: Evidence for microvascular disease. An acute or additional significant finding is not seen
--- NOTE | 2016-06-11 15:14 | RAD ---
MR CERVICAL SPINE HISTORY:left sided weakness, head and neck pain, no priors, being treated for regional pain syndrome ku neuroReason: Left sided weakness, pain / Spl. Instructions: / History: COMPARISON: Technique: Sagittal T2, sagittal STIR, sagittal T1, and axial gradient echo imaging was obtained of the cervical spine. FINDINGS: Detail is degraded by motion artifact. Alignment and curvature are within normal limits. Vertebral body heights are maintained. Overall bone marrow signal is within normal limits. There is no gross cord signal abnormality. The axial images are significantly degraded by motion artifact but there is no evidence for high-grade stenosis of the central spinal canal or neural foramina. Visualized soft tissues of the neck are within normal limits. Impression: - Motion artifact degrades detail of the examination but there is no evidence for significant narrowing of the central spinal canal or neural foramina. No obvious cord signal abnormality. Electronically signed by: Isaac Tipton (Jun 11, 2016 15:12:47)
--- NOTE | 2016-06-11 17:30 | PDOC2 ---
NEUROLOGY CONSULT Date of Admission Date of Admission Full Report Dictated DATE: 06/11/16 TIME: 17:29 Current Medications Current Medications Current Medications Sodium Chloride (Iv Sodium Chloride 0.9% 1000ml Bag) 1,000 ml @ 1,000 mls/hr 1X ONCE IV Last administered on 06/09/16 22:11; Start 06/09/16 at 22:30; Stop 06/09/16 at 23:29; Status DC Acetaminophen (Tylenol) 1,000 mg 1X ONCE PO Last administered on 06/09/16 22: 14; Start 06/09/16 at 22:30; Stop 06/09/16 at 22:31; Status DC Fentanyl Citrate 50 mcg 50 mcg PRN Q15MIN PRN IV PAIN GREATER THAN 3/10 Last administered on 06/09/16 22:14; Start 06/09/16 at 22:15; Stop 06/10/16 at 03:00 ; Status DC Ceftriaxone Sodium 1 gm/ Sodium Chloride 100 ml @ 200 mls/hr Q24H IV ; Start at 00:00; Status UNV Azithromycin 500 mg/Sodium Chloride 250 ml @ 250 mls/hr Q24H IV ; Start at 21:00; Stop 06/10/16 at 21:00; Status DC Ceftriaxone Sodium 50 ml @ 100 mls/hr 1X ONCE IV Last administered on 00:41; Start 06/10/16 at 00:30; Stop 06/10/16 at 00:59; Status DC Ceftriaxone Sodium 1 gm/ Sodium Chloride 50 ml @ 100 mls/hr Q24H IV Last administered on 06/10/16 22:32; Start 06/10/16 at 22:00 Azithromycin (Zithromax 500mg Ivpb For Omni) 250 ml @ 250 mls/hr 1X ONCE IV ; Start 06/10/16 at 00:30; Stop 06/10/16 at 00:36; Status DC Ondansetron HCl (Zofran) 4 mg PRN Q8HRS PRN IV NAUSEA/VOMITING Last administered on 06/10/16 07:49; Start 06/10/16 at 01:15; Stop 06/11/16 at 01:14 ; Status DC Morphine Sulfate 4 mg 4 mg PRN Q2HR PRN IV SEVERE PAIN Last administered on 07:48; Start 06/10/16 at 01:15; Stop 06/11/16 at 01:14; Status DC Sodium Chloride (Iv Sodium Chloride 0.9% 1000ml Bag) 1,000 ml @ 125 mls/hr Q8H IV Last administered on 06/10/16 03:04; Start 06/10/16 at 01:14; Stop at 01:13; Status DC Acetaminophen (Tylenol) 650 mg PRN Q4HRS PRN PO FEVER Last administered on 06/10 19:48; Start 06/10/16 at 01:15; Stop 06/11/16 at 01:14; Status DC Potassium Chloride (KCl Oral Soln) 40 meq 1X ONCE PO Last administered on 06/10 03:02; Start 06/10/16 at 02:00; Stop 06/10/16 at 02:01; Status DC Amitriptyline HCl (Elavil) 25 mg QHS PO Last administered on 06/10/16 21:22; Start 06/10/16 at 21:00 Aspirin (Ecotrin) 81 mg DAILY PO Last administered on 06/11/16 07:51; Start at 13:00 Gabapentin (Neurontin) 400 mg TID PO Last administered on 06/11/16 14:50; Start 06/10/16 at 14:00 Mirtazapine (Remeron) 15 mg QHS PO Last administered on 06/10/16 21:22; Start 06/10/16 at 21:00 Tramadol HCl (Ultram) 50 mg PRN Q8HRS PRN PO PAIN; Start 06/10/16 at 12:30 Non-Formulary Medication 1 tab WEEKLY PO ; Start 06/17/16 at 09:00; Stop at 09:00; Status DC Meclizine HCl (Antivert) 25 mg PRN TID PRN PO DIZZINESS Last administered on 14:50; Start 06/10/16 at 12:45 Pantoprazole Sodium (Protonix) 40 mg DAILYAC PO Last administered on 06/11/16 07:51; Start 06/10/16 at 16:30 Acetaminophen (Tylenol) 650 mg PRN Q6HRS PRN PO MILD PAIN / TEMP Last administered on 06/11/16 02:30; Start 06/10/16 at 14:15 Ondansetron HCl (Zofran) 4 mg PRN Q6HRS PRN IV NAUSEA/VOMITING; Start 06/10/16 at 14:15 Acetaminophen/ Hydrocodone Bitart (Lortab 5/325) 1 tab PRN Q4HRS PRN PO PAIN Last administered on 06/11/16 14:50; Start 06/10/16 at 14:15 Enoxaparin Sodium (Lovenox 40mg Syringe) 40 mg Q24H SQ Last administered on 14:51; Start 06/10/16 at 15:00 Methylprednisolone Acetate (Depo-Medrol 40mg Vial) 40 mg 1X ONCE IM ; Start at 18:30; Stop 06/10/16 at 18:31; Status DC Bupivacaine HCl (Sensorcaine-Mpf 0.25%) 10 ml 1X ONCE IJ ; Start 06/10/16 at 18 :30; Stop 06/10/16 at 18:31; Status DC Methylprednisolone Acetate (Depo-Medrol 40mg Vial) 40 mg 1X ONCE IM ; Start at 10:30; Stop 06/11/16 at 10:31; Status DC Bupivacaine HCl (Sensorcaine-Mpf 0.25%) 10 ml 1X ONCE IJ ; Start 06/11/16 at 10 :30; Stop 06/11/16 at 10:31; Status DC Acetaminophen/ Hydrocodone Bitart (Lortab 5/325) 1 tab PRN Q4HRS PRN PO PAIN; Start 06/11/16 at 12:30; Stop 06/11/16 at 13:48; Status DC Active Scripts Active Reported Tramadol Hcl 50 Mg Tablet 50 Mg PO Q8HRS PRN Omeprazole 40 Mg Capsule. 1 Cap PO DAILY Mirtazapine 15 Mg Tablet 1 Tab PO QHS Meclizine Hcl 25 Mg Tablet 1 Tab PO PRN TID Gabapentin 400 Mg Capsule 400 Mg PO TID Aspir 81 (Aspirin) 81 Mg Tablet. 1 Tab PO DAILY Amitriptyline Hcl 25 Mg Tablet 1 Tab PO QHS Alendronate Sodium 70 Mg Tablet 1 Tab PO WEEKLY Allergies Allergies: Coded Allergies: No Known Drug Allergies (Unverified , 2/16/17) Vitals VITALS Vital Signs Date Time Temp Pulse Resp B/P Pulse Ox O2 Delivery O2 Flow Rate FiO2 06/11/16 15:57 Room Air 06/11/16 15:00 97.8 61 16 113/69 96 97.8 06/11/16 02:58 2.0 Labs Labs Laboratory Tests Test 06/09/16 21:00 06/09/16 22:10 06/10/16 12:40 06/11/16 05:50 Urine Collection Type Unknown Urine Color Yellow Urine Clarity Clear Urine pH 7.5 Urine Specific [place] <=1.005 Urine Protein Negativemg/dL (NEG-TRACE) Urine Glucose (UA) Negativemg/dL (NEG) Urine Ketones (Stick) Tracemg/dL (NEG) Urine Blood Trace (NEG) Urine Nitrite Negative (NEG) Urine Bilirubin Negative (NEG) Urine Urobilinogen Dipstick 0.2mg/dL (0.2 mg/dL) Urine Leukocyte Esterase Large (NEG) Urine RBC 0/HPF (0-2) Urine WBC >40/HPF (0-4) Urine Bacteria Mod/HPF (0-FEW) White Blood Count 16.3x10^3/uL (4.0-11.0) 8.4x10^3/uL (4.0-11.0) Red Blood Count 4.89x10^6/uL (3.50-5.40) 4.51x10^6/uL (3.50-5.40) Hemoglobin 12.7g/dL (12.0-15.5) 11.7g/dL (12.0-15.5) Hematocrit 38.1% (36.0-47.0) 35.7% (36.0-47.0) Mean Corpuscular Volume 78fL (79-100) 79fL (79-100) Mean Corpuscular Hemoglobin 26pg (25-35) 26pg (25-35) Mean Corpuscular Hemoglobin Concent 33g/dL (31-37) 33g/dL (31-37) Red Cell Distribution Width 14.6% (11.5-14.5) 14.7% (11.5-14.5) Platelet Count 204x10^3/uL (140-400) 184x10^3/uL (140-400) Neutrophils (%) (Auto) 72% (31-73) 61% (31-73) Lymphocytes (%) (Auto) 22% (24-48) 27% (24-48) Monocytes (%) (Auto) 4% (0-9) 7% (0-9) Eosinophils (%) (Auto) 1% (0-3) 5% (0-3) Basophils (%) (Auto) 1% (0-3) 0% (0-3) Neutrophils # (Auto) 11.7x10^3uL (1.8-7.7) 5.1x10^3uL (1.8-7.7) Lymphocytes # (Auto) 3.6x10^3/uL (1.0-4.8) 2.2x10^3/uL (1.0-4.8) Monocytes # (Auto) 0.7x10^3/uL (0.0-1.1) 0.6x10^3/uL (0.0-1.1) Eosinophils # (Auto) 0.2x10^3/uL (0.0-0.7) 0.4x10^3/uL (0.0-0.7) Basophils # (Auto) 0.1x10^3/uL (0.0-0.2) 0.0x10^3/uL (0.0-0.2) Sodium Level 139mmol/L (136-145) 144mmol/L (136-145) Potassium Level 3.1mmol/L (3.5-5.1) 4.1mmol/L (3.5-5.1) Chloride Level 102mmol/L (98-107) 109mmol/L (98-107) Carbon Dioxide Level 23mmol/L (21-32) 25mmol/L (21-32) Anion Gap 14 (6-14) 10 (6-14) Blood Urea Nitrogen 7mg/dL (7-20) 3mg/dL (7-20) Creatinine 0.7mg/dL (0.6-1.0) 0.6mg/dL (0.6-1.0) Estimated GFR (Cockcroft-Gault) 90.1 107.6 BUN/Creatinine Ratio 10 (6-20) Glucose Level 94mg/dL (70-99) 97mg/dL (70-99) Calcium Level 8.9mg/dL (8.5-10.1) 8.4mg/dL (8.5-10.1) Total Bilirubin 1.1mg/dL (0.2-1.0) Aspartate Amino Transf (AST/SGOT) 37U/L (15-37) Alanine Aminotransferase (ALT/SGPT) 49U/L (14-59) Alkaline Phosphatase 61U/L (46-116) Total Protein 7.8g/dL (6.4-8.2) Albumin 3.7g/dL (3.4-5.0) Albumin/Globulin Ratio 0.9 (1.0-1.7) Influenza Type A Antigen Negative (NEGATIVE) Influenza Type B Antigen Negative (NEGATIVE) Erythrocyte Sedimentation Rate 39 (0-25) Creatine Kinase 61U/L (26-192) Creatine Kinase MB (Mass) < 0.5ng/mL (0.0-3.6) Creatine Kinase MB Relative Index % (0-4) Rheumatoid Factor <10.0IU/mL (0.0-13.9) Laboratory Tests Test 06/11/16 05:50 White Blood Count 8.4x10^3/uL (4.0-11.0) Red Blood Count 4.51x10^6/uL (3.50-5.40) Hemoglobin 11.7g/dL (12.0-15.5) Hematocrit 35.7% (36.0-47.0) Mean Corpuscular Volume 79fL (79-100) Mean Corpuscular Hemoglobin 26pg (25-35) Mean Corpuscular Hemoglobin Concent 33g/dL (31-37) Red Cell Distribution Width 14.7% (11.5-14.5) Platelet Count 184x10^3/uL (140-400) Neutrophils (%) (Auto) 61% (31-73) Lymphocytes (%) (Auto) 27% (24-48) Monocytes (%) (Auto) 7% (0-9) Eosinophils (%) (Auto) 5% (0-3) Basophils (%) (Auto) 0% (0-3) Neutrophils # (Auto) 5.1x10^3uL (1.8-7.7) Lymphocytes # (Auto) 2.2x10^3/uL (1.0-4.8) Monocytes # (Auto) 0.6x10^3/uL (0.0-1.1) Eosinophils # (Auto) 0.4x10^3/uL (0.0-0.7) Basophils # (Auto) 0.0x10^3/uL (0.0-0.2) Sodium Level 144mmol/L (136-145) Potassium Level 4.1mmol/L (3.5-5.1) Chloride Level 109mmol/L (98-107) Carbon Dioxide Level 25mmol/L (21-32) Anion Gap 10 (6-14) Blood Urea Nitrogen 3mg/dL (7-20) Creatinine 0.6mg/dL (0.6-1.0) Estimated GFR (Cockcroft-Gault) 107.6 Glucose Level 97mg/dL (70-99) Calcium Level 8.4mg/dL (8.5-10.1) Assessment/Plan Assessment/Plan Patient is a 45-year-old woman with left-sided numbness and weakness. The MRI brain and cervical spine was negative. The sensory examination was nonorganic. This likely represents either a conversion reaction or potentially malingering. I appreciate being involved in the care. ADAL NICHOLAS MD Jun 11, 2016 17:30
[2016-06-11] MEDS: MIRTAZAPINE 15 MG TABLET PO SCH (21:00)
[2016-06-11] MEDS: AMITRIPTYLINE HCL 25 MG TABLET PO SCH (21:00)
[2016-06-11] MEDS: CEFTRIAXONE SODIUM 1 GM in IV NORMAL SALINE 50ML 50 ML IV SCH (22:07)
[2016-06-12 03:24] VITALS: BP 109/65
[2016-06-12] MEDS: HYDROCODONE/APAP 5/325MG TABLET. PO PRN ×3 (04:36→13:11)
[2016-06-12 07:00] VITALS: BP 115/78
[2016-06-12 07:24] LABS: CHOLESTEROL/HDL RATIO 5.3
[2016-06-12] MEDS: GABAPENTIN 400 MG CAPSULE. PO SCH (07:57)
[2016-06-12] MEDS: PANTOPRAZOLE 40 MG TABLET. PO SCH (07:57)
[2016-06-12] MEDS: ASPIRIN ENTERIC COATED 81 MG TABLET.DR. PO SCH (07:58)
[2016-06-12 11:00] VITALS: BP 119/72
[2016-06-12] MEDS ORDERED: CIPR250T30 PO (11:44)
[2016-06-12] MEDS ORDERED: HYDR-2666 PO (11:44)
--- NOTE | 2016-06-12 11:53 | PDOC3 ---
Discharge Summary [facility] Date of Admission: Jun 10, 2016 Discharge Date: Jun 12, 2016 Admitting Diagnosis 1. worsening of whole body pain , mainly left hand with weakness, 2/2 conventional disorder? neg stroke in MRI 2. possible UTI with pyelonephritis 3. left upper ext weakness, 2 years 4. chronic bl hip and left hand pain 5. dysphagia 1 month 6. h/o vertigo 7. depression 8. hypokalemia 9. obesity plan; 1. dr. Wyman consulted, post neck and left hip steroid injection, pain better 2. ptot 3. cont home meds, off prednisone now 4. fu ucx, ceftriaxone for now hip xr normal CXR normal 5. dvt ppx replete K labs tmr GI consult, neuro consult check brain and neck MRI, LIPID panel, pt likely had stroke long time ago History of Present Illness History of Present Illness pt has been having whole body pain, mainly on left side for 2 years, was in some hosp for 1 day, wo intervention, wo good diagnosis dysphagia 1 month, swallow eval recommend GI CONSULT Vitals Vitals Vital Signs Date Time Temp Pulse Resp B/P Pulse Ox O2 Delivery O2 Flow Rate FiO2 06/11/16 11:00 98.4 70 20 108/71 97 Room Air 98.4 06/11/16 02:58 2.0 Physical Exam Problems: Final Diagnosis Problems Medical Problems: (1) Complex regional pain syndrome Status: Acute (2) Pyelonephritis Status: Acute CONSULTS dr. Wyman neuro Brief Hospital Course Patient is a 45 year old [woman, history of complex regional pain disorder, with persistent left-sided symptoms, comes for worsening pain yesterday. Pt doesnot speak French, from [facility], her son is translating at bedside. Son said pt has been having whole body pain for 2 years, fu with [facility],left shoulder, hip pain is worse that right side. Basically pt feels severe whole body pain, shoulder pain, bl hip pain, BL lower ABD pain, bl legs pain, ( not knee pain) nausea, no Vomiting, fever, chills, dysuria, hematuria, urgency ,frequency. abd CT neg. T 100.2 in ER. however, pt was found left hand weakness, chronic for 2 years, denies stroke history. MRI brain, cervical wo acute or chronic stroke, neuro consulted, no intervention done. Pt got cervical and left iliac joint steroid injection, better yesterday, but c/o abd pain and neck pain again today. She also has dysphagia for 1 month, GI consult pending. able to swallow just feeling something stuck there, no N/V, dc pt if no GI intervention needs to be done. dc time 35min . lortab 10 pills, cipro for anther 5days. General: Alert, Oriented X3, Cooperative Heart: Regular rate, Normal S1, Normal S2 Lungs: Clear Abdomen: Normal bowel sounds, Soft Extremities: No clubbing, No cyanosis, Other (LEFT HAND STREANGTH 2/5, stiff, likely chronic ) Skin: No rashes Patient History: Problems: Disposition home CONDITION AT DISCHARGE: Improved Diet regular Scheduled Alendronate Sodium (Alendronate Sodium) 1 TAB PO WEEKLY (Reported) Amitriptyline Hcl (Amitriptyline Hcl) 1 TAB PO QHS (Reported) Aspirin (Aspir 81) 1 TAB PO DAILY (Reported) Ciprofloxacin Hcl (Cipro) 500 MG PO BID Gabapentin (Gabapentin) 400 MG PO TID (Reported) Meclizine Hcl (Meclizine Hcl) 1 TAB PO PRN TID (Reported) Mirtazapine (Mirtazapine) 1 TAB PO QHS (Reported) Omeprazole (Omeprazole) 1 CAP PO DAILY (Reported) Scheduled PRN Hydrocodone Bit/Acetaminophen (Hydrocodone-Apap 5-325 ) 1 TAB PO PRN Q4HRS PRN PRN PAIN Tramadol Hcl (Tramadol Hcl) 50 MG PO Q8HRS PRN PRN PAIN (Reported) Discontinued Medications Capsaicin (Zostrix Hp) 56.6 GM TP (Reported) Follow Up pcp next week ELISEO TOMLIN MD Jun 12, 2016 11:53
[2016-06-12] MEDS ORDERED: CIPROFLOXACIN HCL 250 MG TABLET PO SCH (12:00)
--- NOTE | 2016-06-12 13:07 | CONS ---
DATE OF CONSULTATION: 06/11/2016 REFERRING PHYSICIAN:. Dr. Chase. HISTORY OF PRESENT ILLNESS: The patient is a 45-year-old woman who complains of chronic left-sided symptoms, but worsening pain. She has been having trouble with flank pain for the last month. She reports that some investigation has been performed, but nothing has never been found. She ____ as complex regional pain syndrome, although does not have regional pain, but complains of total body pain. She normally has trouble using her left side, but now it has been worse with both legs. She complains of headache and visual disturbance. She has chest pain. She has shortness of breath. She has bladder symptoms. PAST MEDICAL HISTORY: 1. Left sided pain and inability to move. ALLERGIES: No known allergies to drugs. MEDICATIONS PRIOR TO ADMISSION: Fosamax 70 mg weekly, amitriptyline 25 mg nightly, aspirin 81 mg, gabapentin 400 mg, 3 times per day, meclizine 25 mg 3 times per day as needed, mirtazapine 15 mg at bedtime, omeprazole 40 mg daily and tramadol 50 mg every 8 hours as needed. FAMILY HISTORY: Not known. SOCIAL HISTORY: She is and lives with her and son. She does not smoke tobacco, drink alcohol or use recreational drugs. REVIEW OF SYSTEMS: She complains of headache. She complains of visual disturbance. There is no change of hearing. She has been able to swallow without choking. She complains of shortness of breath and chest pain. She has abdominal pain. She has bone and joint pain. She has had no fever or rash. Does not have any gastrointestinal complaints. Does have genitourinary complaints. Does complain of numbness on the entire left side including face, arm and leg. She has weakness on the entire left side. She has difficulty walking. PHYSICAL EXAMINATION: VITAL SIGNS: Blood pressure 113/69, pulse 61, respirations 16, temperature 97.8 degrees Fahrenheit. Oximetry was 96% on room air. Her weight was 174 pounds and height 62 inches with a calculated body mass index of 31.8. GENERAL: She was alert, awake and cooperative. She was able to speak in her negative tongue to her son fluently. She appeared to have a fairly good fund of recent and remote knowledge. Attention and concentration was intact. She appeared well groomed and well nourished. She did not appear to be in any distress. NEUROLOGIC: Examination of the cranial nerves revealed visual dunlap were full to confrontation. Extraocular movements were intact. The eyes were conjugate. Pupils were 4 mm and reactive. Funduscopic exam did not reveal papilledema, exudate or hemorrhage. Facial sensation was intact on the right, but not the left. The sharp sensation was not perceived to well past midline on the right side. Vibratory sense on the face was not perceived just to the left of midline, but was perceived just to the right of midline. The muscles of mastication and facial expression were symmetric. When asked to smile, she did not do any facial movement at all, but she had normal facial movement with talking. Hearing was intact to finger rub. The palate arches symmetrically and the tongue was midline with full range of motion. Sternocleidomastoid and trapezius were powerful. Muscle bulk and tone was normal. She was able to be reduced on the fingers of the left hand, but the fingers wanted to flex. She did not put hardly any effort to move the left side. She put a good effort on the right side, which was full. Reflexes were diminished throughout, but were symmetric. There was trace ankle reflexes bilaterally. Coordination testing with [id number] and fine tapping was well performed on the right, but she did not attempt on the left. [id number], she had poor performance on the right and did not attempt on the left. Sensory exam revealed sensory loss on the left side at all modalities tested. On the sternum just across midline, she would feel right-sided vibration, but not left. Gait was not testable. Auscultation of the carotid arteries did not reveal a bruit. Heart rhythm was regular without a murmur. Peripheral pulses were symmetric in upper and lower extremities. There was no edema or cyanosis. REVIEW OF LABORATORY DATA: CBC initially revealed an elevated white count, but this comes down to normal today. Hemoglobin was 11.7, hematocrit 35.7 and platelet count was normal. Sedimentation rate was slightly elevated at 39. Chemistries revealed normal sodium and potassium, but chloride was elevated at 109. BUN was 3 and creatinine was 0.6. Calcium was low at 8.4. Glucose was normal. CPK was normal. Albumin and total protein were normal. Total bilirubin was elevated at 1.1, but the other liver enzymes were not elevated. Urinalysis revealed trace ketones, trace blood, negative nitrite, large amount of leukocyte esterase and greater than 40 white cells with moderate bacteria. Rheumatoid factor was negative. ANAs is pending. Influenza screening was negative. I reviewed the MRI of the brain and cervical spine, which were normal. Chest x-ray was negative. Hip and pelvis x-rays were negative. Abdominal and pelvis CAT scan was negative. IMPRESSION: The patient is a 45-year-old woman who has complaints of left-sided numbness and weakness. There is no organic component. There is no evidence for any prior stroke that would contribute to this situation. This involves both face, arm and leg, so the localization with necessarily have to be in the brain. Cervical spine revealed no stenosis or signal abnormality. There was no evidence ____. The findings on her exam were not organic. Vibratory sense, she has transmitted on bone, so loss of sense just across midline. It is not organic. This is either a conversion disorder or malingering. I appreciate being involved in the care. Please reconsult if I can be of further service. ADAL NICHOLAS MD DR: JAKE/shefali JOB#: [id number] / [id number] Leila Angulo
[2016-06-17] MEDS ORDERED: NON FORMULARY ITEM (Alendronate Sodium 1 TAB) PO SCH (09:00)
== END 2016-06-12 13:30 | disposition home or self-care (01) | DRG 690 ==
LOC: ER 19:51 → 4 NORTH 06-10 00:06
PROVIDERS: ADMIT Internal Medicine; ATTEND Internal Medicine
PROC: 3E0U33Z Introduction of Anti-inflammatory into Joints, Percutaneous Approach (ICD-10-PCS; principal; 2016-06-11)
DX: N12 Tubulo-interstitial nephritis, not specified as acute or chronic (principal); G81.94 Hemiplegia, unspecified affecting left nondominant side; G90.522 Complex regional pain syndrome I of left lower limb; F44.4 Conversion disorder with motor symptom or deficit; E66.9 Obesity, unspecified; E87.6 Hypokalemia; F32.9 Major depressive disorder, single episode, unspecified; K76.0 Fatty (change of) liver, not elsewhere classified; M25.552 Pain in left hip; M79.642 Pain in left hand; M25.551 Pain in right hip; M81.0 Age-related osteoporosis without current pathological fracture; H53.9 Unspecified visual disturbance; R13.10 Dysphagia, unspecified; Z68.31 Body mass index [BMI] 31.0-31.9, adult
CPT/HCPCS: 36415; 70551; 71020; 72141; 73521; 74176; 80048; 80053; 80061; 81001; 81025; 82553; 85027; 85651; 86431; 87086; 87804; 96361; 96365; 96375; J0690; J0696; J1650; J2270; J2405; J3010; J7030; J8597; 92610; 99285-25

== ENCOUNTER 2016-09-11 18:00 | Emergency (ER) | payer BC ==
[~2016-09-11] VITALS: Ht 160 cm; Wt 68.0 kg
[~2016-09-11 18:00] MED LIST: ALEN70TA5 PO; AMIT25TA PO; ASPI-482 PO; CIPR250T30 PO; GABA-587 PO; HYDR-2666 PO; MECL25TA3 PO; MIRT15TA3 PO; OMEP40CA5 PO; TRAM50TA PO; [UNRECOGNIZED DRUG - CODE] TP
[2016-09-11] MEDS ORDERED: DEXAMETHASONE SOD PHOS 20 MG/5 ML VIAL. IV ONE (19:00)
[2016-09-11] MEDS ORDERED: IV NORMAL SALINE 1000ML BAG 1,000 ML IV ONE (19:00)
[2016-09-11 19:32] LABS: BASO # 0.1 x10^3/uL (0.0-0.2); BASO % 1 % (0-3); EOS % 2 % (0-3); HEMATOCRIT 37.4 % (36.0-47.0); HEMOGLOBIN 12.3 g/dL (12.0-15.5); LYMPH # 2.5 x10^3/uL (1.0-4.8); LYMPH % 30 % (24-48); MEAN CORPUSCULAR HEMOGLOBIN 26 pg (25-35); MEAN CORPUSCULAR HGB CONC 33 g/dL (31-37); MEAN CORPUSCULAR VOLUME 79 fL (79-100); MONO % 6 % (0-9); NEUT % 61 % (31-73); PLATELET COUNT 188 x10^3/uL (140-400); RED BLOOD COUNT 4.75 x10^6/uL (3.50-5.40); RED CELL DISTRIBUTION WIDTH 14.8 % (11.5-14.5); WHITE BLOOD COUNT 8.3 x10^3/uL (4.0-11.0)
[2016-09-11 19:48] LABS: PROTHROMBIN TIME PATIENT 12.9 SEC (11.7-14.0)
[2016-09-11 19:55] LABS: BILIRUBIN,URINE NEGATIVE (NEG); GLUCOSE,URINE NEGATIVE (NEG); NITRITE,URINE NEGATIVE (NEG); PH,URINE 7.5; PROTEIN,URINE NEGATIVE (NEG-TRACE); UROBILINOGEN,URINE 0.2 mg/dL (0.2 mg/dL)
[2016-09-11 19:56] LABS: ALBUMIN 3.7 g/dL (3.4-5.0)
[2016-09-11] MEDS ORDERED: MECLIZINE HCL 12.5 MG TABLET. PO ONE (20:00)
[2016-09-11 20:13] LABS: BACTERIA,URINE FEW /HPF (0-FEW); BARBITURATES NEG (NEG); BENZODIAZEPINES NEG (NEG); CANNABINOIDS NEG (NEG); COCAINE NEG (NEG); METHADONE NEG (NEG); OPIATES POS (NEG); PHENCYCLIDINE NEG (NEG); RBC,URINE OCC /HPF (0-2); SQUAMOUS EPITHELIAL CELL,UR MOD /LPF
[2016-09-11 20:13] LABS: CALCIUM 8.6 mg/dL (8.5-10.1); CREATININE 0.8 mg/dL (0.6-1.0); GFR 77.2; POTASSIUM 3.6 mmol/L (3.5-5.1)
[2016-09-11 20:17] LABS: ALBUMIN/GLOBULIN RATIO 0.9 (1.0-1.7); TOTAL BILIRUBIN 0.8 mg/dL (0.2-1.0)
[2016-09-11 20:20] LABS: CREATINE KINASE 83 U/L (26-192)
[2016-09-11 20:21] LABS: CKMB MASS < 0.5 ng/mL (0.0-3.6)
[2016-09-11] MEDS ORDERED: IOHEXOL 300 MG/ML 75 ML VIAL IV ONE (20:30)
--- NOTE | 2016-09-11 20:56 | RAD ---
INDICATION: Left neck swelling. COMPARISON: None TECHNIQUE: Axial CT images obtained through the soft tissues of the neck are obtained following the intravenous administration of contrast, dose not specified. Coronal and sagittal reformats are provided. One or more of the following individualized dose reduction techniques were utilized for this examination: 1. Automated exposure control; 2. Adjustment of the mA and/or kV according to patient size; 3. Use of iterative reconstruction technique. FINDINGS: There is mild prominence of the tonsils, without asymmetry or central fluid density. No suspicious, enhancing mass is seen. No cervical lymphadenopathy is seen. A couple bilateral level II lymph nodes are present measuring up to 1.5 cm in greatest dimension. Bilateral parotid and submandibular glands appear within normal limits. The thyroid gland is symmetric. Bilateral carotid arteries are patent. Visualized lung bases are clear. Cervical spine is intact. IMPRESSION: No suspicious enhancing mass or cervical lymphadenopathy. Tonsils are mildly prominent yet symmetric. Electronically signed by: Annalee Gee (September 11, 2016 20:54:37)
[2016-09-11] MEDS ORDERED: TRAM-29 PO (21:23)
[2016-09-11] MEDS ORDERED: LIDO20SO PO (21:23)
[2016-09-11] MEDS ORDERED: PRED50TA PO (21:23)
[2016-09-11] MEDS ORDERED: CLIN-44 PO (21:23)
--- NOTE | 2016-09-11 21:23 | PHYS DOC ---
Past Medical History Past Medical History: Depression, Other Additional Past Medical Histor: CHRONIC HIP PAIN, CHRONIC LEFT HAND PAIN, OSTEOPOROSIS, VETIGO Past Surgical History: No Surgical History Additional Past Surgical Histo: DENIES Alcohol Use: None Drug Use: None Adult General Chief Complaint Chief Complaint: Neck Pain HPI HPI Patient is a 45 year old female with history of depression who presents to the ED with multiple complaints. Patient is English speaking and is in the ED with the son who is doing the interpretation for patient. Patient also understands some Pashto. Patient states she had an upper endoscopy done 1 month ago at [facility]. Patient states since then she's had sore throat, hoarse voice, and pain on her left lateral neck. Patient states she was at [facility] ED yesterday. She states they didn't do anything for her but give her prescription for azithromycin which she has taken with no relief of her symptoms. Patient denies any trauma. Denies any chest pain or shortness of breath. She is also complaining of hand pain bilaterally. She denies any injuries. She states this has been going on for couple weeks as well. She believes that it began after they did the endoscopy. She is also complaining of generalized abdominal pain that she lives began after they did the endoscopy. Son states she has an appointment with her PCP in the next 2 weeks but they could not wait. PCP Dr. Phillips Review of Systems Review of Systems Constitutional: Denies fever or chills [] Eyes: Denies change in visual acuity, redness, or eye pain [] HENT: hoarse voice and sore throat [] Respiratory: Denies cough or shortness of breath [] Cardiovascular: No additional information not addressed in HPI [] GI: abdominal pain, : Denies dysuria or hematuria [] Musculoskeletal: Denies back pain or joint pain [] Integument: Denies rash or skin lesions [] Neurologic: Denies headache, focal weakness or sensory changes [] Endocrine: Denies polyuria or polydipsia [] Current Medications Current Medications Current Medications Medications (Trade) Dose Ordered Sig/Abel Start Time Stop Time Status Last Admin Dose Admin Dexamethasone Sodium Phosphate (Decadron) 10 mg 1X ONCE 09/11/16 19:00 09/11/16 19:01 DC 09/11/16 19:53 10 MG Diazepam (Valium) 5 mg 1X ONCE 09/11/16 20:00 09/11/16 20:01 DC 09/11/16 19:52 5 MG Iohexol (Omnipaque 300 Mg/ml) 75 ml 1X ONCE 09/11/16 20:30 09/11/16 20:31 DC 09/11/16 20:45 75 ML Meclizine HCl (Antivert) 25 mg 1X ONCE 09/11/16 20:00 09/11/16 20:01 DC 09/11/16 19:53 25 MG Sodium Chloride 1,000 ml @ 1,000 mls/hr 1X ONCE 09/11/16 19:00 09/11/16 19:59 DC 09/11/16 19:53 1,000 MLS/HR Allergies Allergies Allergies Coded Allergies Type Severity Reaction Last Updated Verified No Known Drug Allergies 06/09/16 No Physical Exam Physical Exam Constitutional: Well developed, well nourished, no acute distress, non-toxic appearance. [] HENT: Normocephalic, atraumatic, bilateral external ears normal, oropharynx moist, no oral exudates, nose normal. Her voice sounds hoarse. +2 anterior cervical adenopathy Posterior pharynx has trace erythema no exudate Airway is open Eyes: PERRLA, EOMI, conjunctiva normal, no discharge. [] Neck: Normal range of motion, no tenderness, supple, no stridor. [] Cardiovascular:Heart rate regular rhythm, no murmur [] Lungs & Thorax: Bilateral breath sounds clear to auscultation [] Abdomen: Bowel sounds normal, soft, no tenderness, no masses, no pulsatile masses. [] Skin: Warm, dry, no erythema, no rash. [] Back: No tenderness, no CVA tenderness. [] Extremities: No tenderness, no cyanosis, no clubbing, ROM intact, no edema. [] Neurologic: Alert and oriented X 3, normal motor function, normal sensory function, no focal deficits noted. [] Psychologic: Affect normal, judgement normal, mood normal. [] Current Patient Data Vital Signs Vital Signs Date Time Temp Pulse Resp B/P (MAP) Pulse Ox O2 Delivery O2 Flow Rate FiO2 09/11/16 18:23 98.6 59 19 114/74 (87) 97 Room Air 98.6 Lab Values Laboratory Tests Test 09/11/16 19:20 09/11/16 19:30 White Blood Count 8.3 x10^3/uL (4.0-11.0) Red Blood Count 4.75 x10^6/uL (3.50-5.40) Hemoglobin 12.3 g/dL (12.0-15.5) Hematocrit 37.4 % (36.0-47.0) Mean Corpuscular Volume 79 fL (79-100) Mean Corpuscular Hemoglobin 26 pg (25-35) Mean Corpuscular Hemoglobin Concent 33 g/dL (31-37) Red Cell Distribution Width 14.8 % (11.5-14.5) H Platelet Count 188 x10^3/uL (140-400) Neutrophils (%) (Auto) 61 % (31-73) Lymphocytes (%) (Auto) 30 % (24-48) Monocytes (%) (Auto) 6 % (0-9) Eosinophils (%) (Auto) 2 % (0-3) Basophils (%) (Auto) 1 % (0-3) Neutrophils # (Auto) 5.1 x10^3uL (1.8-7.7) Lymphocytes # (Auto) 2.5 x10^3/uL (1.0-4.8) Monocytes # (Auto) 0.5 x10^3/uL (0.0-1.1) Eosinophils # (Auto) 0.1 x10^3/uL (0.0-0.7) Basophils # (Auto) 0.1 x10^3/uL (0.0-0.2) Prothrombin Time 12.9 SEC (11.7-14.0) Prothrombin Time INR 1.0 (0.8-1.1) Sodium Level 136 mmol/L (136-145) Potassium Level 3.6 mmol/L (3.5-5.1) Chloride Level 101 mmol/L (98-107) Carbon Dioxide Level 26 mmol/L (21-32) Anion Gap 9 (6-14) Blood Urea Nitrogen 7 mg/dL (7-20) Creatinine 0.8 mg/dL (0.6-1.0) Estimated GFR (Cockcroft-Gault) 77.2 BUN/Creatinine Ratio 9 (6-20) Glucose Level 114 mg/dL (70-99) H Calcium Level 8.6 mg/dL (8.5-10.1) Magnesium Level 2.0 mg/dL (1.8-2.4) Total Bilirubin 0.8 mg/dL (0.2-1.0) Aspartate Amino Transferase (AST) 27 U/L (15-37) Alanine Aminotransferase (ALT) 31 U/L (14-59) Alkaline Phosphatase 53 U/L (46-116) Creatine Kinase 83 U/L (26-192) Creatine Kinase MB (Mass) < 0.5 ng/mL (0.0-3.6) Creatine Kinase MB Relative Index 0.6 % (0-4) Troponin I Quantitative < 0.017 ng/mL (0.000-0.055) RP-Adu-F-Type Natriuretic Peptide 139 pg/mL (0-124) H Total Protein 8.0 g/dL (6.4-8.2) Albumin 3.7 g/dL (3.4-5.0) Albumin/Globulin Ratio 0.9 (1.0-1.7) L Lipase 95 U/L (73-393) Thyroid Stimulating Hormone (TSH) 0.863 uIU/mL (0.358-3.74) Urine Collection Type Unknown Urine Color Yellow Urine Clarity Clear Urine pH 7.5 Urine Specific [place] 1.010 Urine Protein Negative mg/dL (NEG-TRACE) Urine Glucose (UA) Negative mg/dL (NEG) Urine Ketones (Stick) Negative mg/dL (NEG) Urine Blood Negative (NEG) Urine Nitrite Negative (NEG) Urine Bilirubin Negative (NEG) Urine Urobilinogen Dipstick 0.2 mg/dL (0.2 mg/dL) Urine Leukocyte Esterase Moderate (NEG) Urine RBC Occ /HPF (0-2) Urine WBC 1-4 /HPF (0-4) Urine Squamous Epithelial Cells Mod /LPF Urine Bacteria Few /HPF (0-FEW) Urine Opiates Screen Pos (NEG) Urine Methadone Screen Neg (NEG) Urine Barbiturates Neg (NEG) Urine Phencyclidine Screen Neg (NEG) Urine Amphetamine/Methamphetamine Neg (NEG) Urine Benzodiazepines Screen Neg (NEG) Urine Cocaine Screen Neg (NEG) Urine Cannabinoids Screen Neg (NEG) Urine Ethyl Alcohol Neg (NEG) Laboratory Tests 09/11/16 19:20 Laboratory Tests 09/11/16 19:20 EKG EKG [] Radiology/Procedures Radiology/Procedures []PROCEDURE: CT SOFT TISSUE NECK W/CONTRAST INDICATION: Left neck swelling. COMPARISON: None TECHNIQUE: Axial CT images obtained through the soft tissues of the neck are obtained following the intravenous administration of contrast, dose not specified. Coronal and sagittal reformats are provided. One or more of the following individualized dose reduction techniques were utilized for this examination: 1. Automated exposure control; 2. Adjustment of the mA and/or kV according to patient size; 3. Use of iterative reconstruction technique. FINDINGS: There is mild prominence of the tonsils, without asymmetry or central fluid density. No suspicious, enhancing mass is seen. No cervical lymphadenopathy is seen. A couple bilateral level II lymph nodes are present measuring up to 1.5 cm in greatest dimension. Bilateral parotid and submandibular glands appear within normal limits. The thyroid gland is symmetric. Bilateral carotid arteries are patent. Visualized lung bases are clear. Cervical spine is intact. IMPRESSION: No suspicious enhancing mass or cervical lymphadenopathy. Tonsils are mildly prominent yet symmetric. Electronically signed by: True Gee (September 11, 2016 20:54:37) DICTATED and SIGNED BY: TRUE GEE MD DATE: 09/11/162053 Course & Med Decision Making Course & Med Decision Making Pertinent Labs and Imaging studies reviewed. (See chart for details) This is a 45 year old female patient with history of depression who presents to the ED today with multiple complaints. Patient states she had an upper endoscopy done at [facility] a month ago. Patient states since then she's had multiple symptoms including horse voice, generalized abdominal pain, bilateral hand pain, left lateral neck pain. She was seen at [facility] yesterday and she states they give her azithromycin which is not helping. I spoke to patient and son at length trying to understand what their goal for today is considering there was seen at a different hospital yesterday. They stated they would like to find out what's wrong with the patient. They state emergency room did not do anything for patient. 19:[address] Holland sinus rhythm, heart rate 51, QRS interval 84 , no STEMI. CBC with no acute findings. CMP would not acute findings, troponin CK-MB are normal. BNP 139. TSH is normal. Drug screen is positive for opiates which she could've received from [facility] though they were not sure what prescriptions they got from apart from azithromycin. Urine has infection though it appears contaminated. Chest x-ray interpreted by Dr. Mcgovern was negative for any acute findings. CT of the neck soft tissues with IV contrast was noted for mildly prominent yet symmetrical tonsils otherwise no acute findings. Patient was discharged with clindamycin, prednisone and Ultram. She was also given lidocaine viscous She has an appointment with her PCP Dr. Phillips. I requested patient to contact the doctor tomorrow morning and see if she can be seen sooner. She is provided return precautions and discharged in stable condition. Dragon Disclaimer Dragon Disclaimer This electronic medical record was generated, in whole or in part, using a voice recognition dictation system. Departure Departure Impression: Primary Impression: Acute tonsillitis Additional Impressions: Laryngitis Urinary tract infection Chronic pain of left hand Chronic pain of right hand Disposition: 01 HOME, SELF-CARE Condition: STABLE Referrals: JACOB GOETZ MD (PCP) Follow-up with your doctor in the next 1-3 days Patient Instructions: Laryngitis, [id number], Tonsillitis, [id number], Urinary Tract Infection Additional Instructions: You were seen in the emergency room with multiple complaints. Your lab work is negative for any acute findings. Your CT of the neck/soft tissue was noted for enlarged tonsils. You have urinary tract infection. We put you on antibiotics. Ensure you complete them. Take the rest of the medications as prescribed. Follow -up with your own doctor in the next 1-3 days. Scripts Lidocaine Hcl (LIDOCAINE HCL VISCOUS) 20 Mg/1 Ml Solution 5 ML PO TID, #100 ML Prov: ELLEN LEUNG APRN 09/11/16 Tramadol Hcl (ULTRAM) 50 Mg Tablet 1 TAB PO Q6HRS, #30 TAB Prov: ELLEN LEUNG APRN 09/11/16 Clindamycin Hcl (CLINDAMYCIN HCL) 150 Mg Capsule 3 CAP PO TID, #90 CAP Prov: ELLEN LEUNG APRN 09/11/16 Prednisone (PREDNISONE) 50 Mg Tablet 1 TAB PO DAILY, #5 TAB Prov: ELLEN LEUNG APRN 09/11/16 Problem Qualifiers Primary Impression: Acute tonsillitis Pharyngitis/tonsillitis etiology: unspecified etiology Qualified Codes: J03.90 - Acute tonsillitis, unspecified Additional Impressions: Urinary tract infection Urinary tract infection type: acute cystitis Hematuria presence: without hematuria Qualified Codes: N30.00 - Acute cystitis without hematuria ELLEN LEUNG APRN September 11, 2016 21:23
[2016-09-11 21:30] VITALS: BP 120/71
[2016-09-12 07:56] LABS: NEGATIVE OBC STREP NEG; POSITIVE OBC STREP POS
--- NOTE | 2016-09-12 08:08 | RAD ---
Portable chest, 09/11/2016: History: Weakness Comparison is made to a study from 06/10/2016. The heart is at the upper limits of normal in size. The pulmonary vascularity is normal. There is minimal linear scarring or atelectasis in the left lateral costophrenic angle. No pulmonary consolidation is seen. There is no evidence of pleural fluid. IMPRESSION: No acute cardiopulmonary abnormality is detected.
--- NOTE | 2016-09-12 08:48 | EKG ---
[facility] [address] [place] [id number] Test Date: 2016-09-11 Test Time: 19:23:51 Pat Name: LUIS MANUEL BATES Department: Room: Gender: F [employer] Helper: : 1970 Requested By: ELLEN LEUNG Order Number: [id number] Reading MD: Melania Sun Measurements Intervals [place] Rate: 51 P: 0 ND: 142 QRS: 28 QRSD: 84 T: 27 QT: 452 QTc: 419 Interpretive Statements SINUS RHYTHM QRS(T) CONTOUR ABNORMALITY CANNOT RULE OUT ANTEROSEPTAL MYOCARDIAL DAMAGE RI6.01 Unconfirmed report No previous ECG available for comparison Electronically Signed On 09-15-2016 20:31:11 CDT by Melania Sun
== END 2016-09-11 21:39 | disposition home or self-care (01) ==
LOC: ER 20:01
DX: J03.90 Acute tonsillitis, unspecified (principal); J04.0 Acute laryngitis; N30.00 Acute cystitis without hematuria; G89.29 Other chronic pain; M79.642 Pain in left hand; M79.641 Pain in right hand; F32.9 Major depressive disorder, single episode, unspecified; M81.0 Age-related osteoporosis without current pathological fracture
CPT/HCPCS: 36415; 70491; 71010; 80053; 80305; 80320; 81001; 81025; 82553; 83690; 83735; 83880; 84443; 84484; 85027; 85610; 87070; 87880; 93005; 96361; 96374; 96375; 99285; J1100; J3360; J7030; J8597; Q9967; G0480; G0481

== ENCOUNTER 2017-03-22 13:27 | Emergency (ER) | payer BC ==
[~2017-03-22] VITALS: Ht 160 cm; Wt 68.0 kg
[~2017-03-22 13:27] MED LIST changes: +CEPH-264 PO; +CLIN150C14 PO; -HYDR-2666 PO; +HYDR-2758 PO; +IBUP-1060 PO; +LIDO20SO PO; +PRED50TA PO; +TRAM-48 PO
[2017-03-22 15:39] LABS: BASO % 0 % (0-3); EOS % 4 % (0-3); LYMPH # 3.6 x10^3/uL (1.0-4.8); LYMPH % 42 % (24-48); MEAN CORPUSCULAR HEMOGLOBIN 26 pg (25-35); MEAN CORPUSCULAR HGB CONC 33 g/dL (31-37); MEAN CORPUSCULAR VOLUME 79 fL (79-100); MONO % 5 % (0-9); NEUT % 49 % (31-73); PLATELET COUNT 194 x10^3/uL (140-400); RED BLOOD COUNT 4.95 x10^6/uL (3.50-5.40); RED CELL DISTRIBUTION WIDTH 14.9 % (11.5-14.5); WHITE BLOOD COUNT 8.6 x10^3/uL (4.0-11.0)
[2017-03-22 15:47] LABS: BILIRUBIN,URINE NEGATIVE (NEG); GLUCOSE,URINE NEGATIVE (NEG); NITRITE,URINE NEGATIVE (NEG); PH,URINE 7.5; PROTEIN,URINE NEGATIVE (NEG-TRACE); UROBILINOGEN,URINE 0.2 mg/dL (0.2 mg/dL)
[2017-03-22 15:47] LABS: CALCIUM 9.1 mg/dL (8.5-10.1); CREATININE 0.7 mg/dL (0.6-1.0); GFR 89.7; POTASSIUM 3.4 mmol/L (3.5-5.1)
[2017-03-22 15:52] LABS: BARBITURATES NEG (NEG); BENZODIAZEPINES NEG (NEG); CANNABINOIDS NEG (NEG); COCAINE NEG (NEG); METHADONE NEG (NEG); OPIATES POS (NEG); PHENCYCLIDINE NEG (NEG)
[2017-03-22 15:53] LABS: ALBUMIN 4.1 g/dL (3.4-5.0); ALBUMIN/GLOBULIN RATIO 1.1 (1.0-1.7); TOTAL BILIRUBIN 0.7 mg/dL (0.2-1.0); TOTAL PROTEIN 7.8 g/dL (6.4-8.2)
[2017-03-22 16:01] LABS: BACTERIA,URINE FEW /HPF (0-FEW); RBC,URINE 0 /HPF (0-2); SQUAMOUS EPITHELIAL CELL,UR MANY /LPF
[2017-03-22] MEDS ORDERED: IOHEXOL 300 MG/ML 100ML VIAL. IV ONE (16:30)
[2017-03-22] MEDS ORDERED: CONTRAST GIVEN MC PRN (16:45)
[2017-03-22] MEDS: fentaNYL PF VIAL 100 MCG/2 ML VIAL IV PRN ×2 (16:59→17:54)
--- NOTE | 2017-03-22 17:05 | RAD ---
Indication: Right lower quadrant pain Technique: CT abdomen and pelvis with 75 mL of Omnipaque 300 with multi planar reformats. Comparison: None Findings: Heart is normal in size. No pericardial or pleural effusion. Clear lung bases. Liver is normal in morphology without focal hepatic lesion. Spleen is within normal limits. No pericholecystic fluid or gallbladder wall thickening. No radiopaque gallstones. Pancreas within normal limits. Adrenal glands show no nodularity. No nephrolithiasis or hydronephrosis. No retroperitoneal or pelvic adenopathy. No bowel obstruction. Normal appendix. Uterus is anteverted. No solid adnexal lesions. 2.2 cm well-circumscribed low attenuating lesion in the left adnexa most likely physiologic follicle. No free pelvic fluid. Bladder show no focal lesion. No abdominal adenopathy. 1 cm fibroid seen in the right aspect of the fundus. 0.8 cm right lower quadrant mesenteric lymph nodes, nonspecific. No suspicious bony lesions. Impression: No acute findings. Normal appendix. No nephrolithiasis. PQRS Compliance Statement: One or more of the following individualized dose reduction techniques were utilized for this examination: 1. Automated exposure control 2. Adjustment of the mA and/or kV according to patient size 3. Use of iterative reconstruction technique
--- NOTE | 2017-03-22 18:44 | ED.ADGEN ---
Past Medical History Past Medical History: Depression, GERD, Other Additional Past Medical Histor: chr hip pain, chr L hand pain,vertigo, pyloneph , osteoart, neuropathy Past Surgical History: No Surgical History Additional Past Surgical Histo: DENIES Alcohol Use: None Drug Use: None Adult General Chief Complaint Chief Complaint: ABDOMINAL PAIN HPI HPI Patient is a 46 year old woman, with chronic pain in the abdomen, and joints, for which she takes methadone and [place], who presents to the emergency department with complaint of right-sided abdominal pain that began today. Pain associated with nausea and one set of vomiting. Translation is assisted by family at bedside. Patient is seen by Dr. Pako Haas, per report patient has had similar symptoms previously which the cause was never identified. Patient states that she has had regular bowel movements today, no blood or bile noted in emesis, and no blood in stool. No injuries, recent travel, no chest pain or shortness of breath, is complaining of some back pain which appears to be her chronic back pain, no swelling extremities, no rashes. Patient appears uncomfortable. Review of Systems Review of Systems Constitutional: Denies fever or chills. [] Eyes: Denies change in visual acuity. [] HENT: Denies nasal congestion or sore throat. [] Respiratory: Denies cough or shortness of breath. [] Cardiovascular: Denies chest pain or edema. [] GI: Clive pain, nausea, vomiting, no bloody stools or diarrhea. : Denies dysuria. [] Musculoskeletal: Denies back pain or joint pain. [] Integument: Denies rash. [] Neurologic: Denies headache, focal weakness or sensory changes. [] Endocrine: Denies polyuria or polydipsia. [] Lymphatic: Denies swollen glands. [] Psychiatric: Denies depression or anxiety. [] Current Medications Current Medications Current Medications Medications (Trade) Dose Ordered Sig/Abel Start Time Stop Time Status Last Admin Dose Admin Fentanyl Citrate (Fentanyl 2ml Vial) 50 mcg PRN Q15MIN PRN 03/22/17 16:30 03/22/17 19:51 DC 03/22/17 17:54 50 MCG Info (Do NOT chart on this entry -- for MONITORING) 1 each PRN DAILY PRN 03/22/17 16:45 03/22/17 19:51 DC Iohexol (Omnipaque 300 Mg/ml) 75 ml 1X ONCE 03/22/17 16:30 03/22/17 16:37 DC 03/22/17 16:47 75 ML Ondansetron HCl (Zofran Odt) 4 mg 1X ONCE 03/22/17 19:45 03/22/17 19:46 DC 03/22/17 19:45 4 MG Allergies Allergies Allergies Coded Allergies Type Severity Reaction Last Updated Verified No Known Drug Allergies 06/09/16 No Physical Exam Physical Exam Constitutional: Well developed, well nourished, appears uncomfortable, non- toxic appearance. [] HENT: Normocephalic, atraumatic, bilateral external ears normal, oropharynx moist, no oral exudates, nose normal. [] Eyes: PERRLA, EOMI, conjunctiva normal, no discharge. [] Neck: Normal range of motion, no tenderness, supple, no stridor. [] Cardiovascular:Heart rate regular rhythm, no murmur, S1, S2, no rubs or gallops. No chest wall crepitus or tenderness. [] Lungs & Thorax: Bilateral breath sounds clear to auscultation, no wheezing, rhonchi, rales. [] Abdomen: Bowel sounds normal, soft, patient points to the right abdomen as the location of pain, mild sinus palpation without rebound or rigidity,, no masses, no pulsatile masses. [] Skin: Warm, dry, no erythema, no rash. [] Back: No tenderness, no CVA tenderness. [] Extremities: No tenderness, no cyanosis, no clubbing, ROM intact, no edema. Negative Homans sign.[] Neurologic: Alert and oriented X 3, normal motor function, normal sensory function, no focal deficits noted. [] Psychologic: Affect normal, judgement normal, mood normal. [] Current Patient Data Vital Signs Vital Signs Date Time Temp Pulse Resp B/P (MAP) Pulse Ox O2 Delivery O2 Flow Rate FiO2 03/22/17 19:30 48 21 99 03/22/17 19:00 117/89 (98) 03/22/17 17:54 Room Air 03/22/17 14:20 98.0 98.0 Lab Values Laboratory Tests Test 03/22/17 14:20 03/22/17 14:36 03/22/17 14:47 Urine Collection Type Unknown Urine Color Yellow Urine Clarity Clear Urine pH 7.5 Urine Specific [place] 1.010 Urine Protein Negative mg/dL (NEG-TRACE) Urine Glucose (UA) Negative mg/dL (NEG) Urine Ketones (Stick) Negative mg/dL (NEG) Urine Blood Negative (NEG) Urine Nitrite Negative (NEG) Urine Bilirubin Negative (NEG) Urine Urobilinogen Dipstick 0.2 mg/dL (0.2 mg/dL) Urine Leukocyte Esterase Moderate (NEG) Urine RBC 0 /HPF (0-2) Urine WBC 11-20 /HPF (0-4) Urine Squamous Epithelial Cells Many /LPF Urine Bacteria Few /HPF (0-FEW) Urine Opiates Screen Pos (NEG) Urine Methadone Screen Neg (NEG) Urine Barbiturates Neg (NEG) Urine Phencyclidine Screen Neg (NEG) Urine Amphetamine/Methamphetamine Neg (NEG) Urine Benzodiazepines Screen Neg (NEG) Urine Cocaine Screen Neg (NEG) Urine Cannabinoids Screen Neg (NEG) Urine Ethyl Alcohol Neg (NEG) POC Urine HCG, Qualitative Hcg negative (Negative) White Blood Count 8.6 x10^3/uL (4.0-11.0) Red Blood Count 4.95 x10^6/uL (3.50-5.40) Hemoglobin 13.0 g/dL (12.0-15.5) Hematocrit 39.0 % (36.0-47.0) Mean Corpuscular Volume 79 fL (79-100) Mean Corpuscular Hemoglobin 26 pg (25-35) Mean Corpuscular Hemoglobin Concent 33 g/dL (31-37) Red Cell Distribution Width 14.9 % (11.5-14.5) H Platelet Count 194 x10^3/uL (140-400) Neutrophils (%) (Auto) 49 % (31-73) Lymphocytes (%) (Auto) 42 % (24-48) Monocytes (%) (Auto) 5 % (0-9) Eosinophils (%) (Auto) 4 % (0-3) H Basophils (%) (Auto) 0 % (0-3) Neutrophils # (Auto) 4.2 x10^3uL (1.8-7.7) Lymphocytes # (Auto) 3.6 x10^3/uL (1.0-4.8) Monocytes # (Auto) 0.4 x10^3/uL (0.0-1.1) Eosinophils # (Auto) 0.3 x10^3/uL (0.0-0.7) Basophils # (Auto) 0.0 x10^3/uL (0.0-0.2) Sodium Level 140 mmol/L (136-145) Potassium Level 3.4 mmol/L (3.5-5.1) L Chloride Level 105 mmol/L (98-107) Carbon Dioxide Level 27 mmol/L (21-32) Anion Gap 8 (6-14) Blood Urea Nitrogen 6 mg/dL (7-20) L Creatinine 0.7 mg/dL (0.6-1.0) Estimated GFR (Cockcroft-Gault) 89.7 BUN/Creatinine Ratio 9 (6-20) Glucose Level 81 mg/dL (70-99) Calcium Level 9.1 mg/dL (8.5-10.1) Total Bilirubin 0.7 mg/dL (0.2-1.0) Aspartate Amino Transferase (AST) 24 U/L (15-37) Alanine Aminotransferase (ALT) 26 U/L (14-59) Alkaline Phosphatase 49 U/L (46-116) Total Protein 7.8 g/dL (6.4-8.2) Albumin 4.1 g/dL (3.4-5.0) Albumin/Globulin Ratio 1.1 (1.0-1.7) Lipase 121 U/L (73-393) Laboratory Tests 03/22/17 14:47 Laboratory Tests 03/22/17 14:47 EKG EKG [] Radiology/Procedures Radiology/Procedures [][facility] [address] [place] [address] IMAGING REPORT Signed PATIENT: LUIS MANUEL BATES ACCOUNT: [id number] : 1970 LOCATION: ER AGE: 46 SEX: F EXAM STATUS: REG ER ORD. PHYSICIAN: GABBIE VALENZUELA DO REASON: RLQ pain PROCEDURE: CT ABD PELV W/ IV CONTRST ONLY Indication: Right lower quadrant pain Technique: CT abdomen and pelvis with 75 mL of Omnipaque 300 with multi planar reformats. Comparison: None Findings: Heart is normal in size. No pericardial or pleural effusion. Clear lung bases. Liver is normal in morphology without focal hepatic lesion. Spleen is within normal limits. No pericholecystic fluid or gallbladder wall thickening. No radiopaque gallstones. Pancreas within normal limits. Adrenal glands show no nodularity. No nephrolithiasis or hydronephrosis. No retroperitoneal or pelvic adenopathy. No bowel obstruction. Normal appendix. Uterus is anteverted. No solid adnexal lesions. 2.2 cm well-circumscribed low attenuating lesion in the left adnexa most likely physiologic follicle. No free pelvic fluid. Bladder show no focal lesion. No abdominal adenopathy. 1 cm fibroid seen in the right aspect of the fundus. 0.8 cm right lower quadrant mesenteric lymph nodes, nonspecific. No suspicious bony lesions. Impression: No acute findings. Normal appendix. No nephrolithiasis. PQRS Compliance Statement: One or more of the following individualized dose reduction techniques were utilized for this examination: 1. Automated exposure control 2. Adjustment of the mA and/or kV according to patient size 3. Use of iterative reconstruction technique DICTATED and SIGNED BY: AUDRA GIBBONS DO DATE: 03/22/17 159 CC: GABBIE VALENZUELA DO; JACOB MATIAS MD ~ Course & Med Decision Making Course & Med Decision Making Pertinent Labs and Imaging studies reviewed. (See chart for details) Patient received CT of abdomen and pelvis, and laboratory studies based on her complaints and location of pain. She also received analgesia IV fluids and antiemetics. No further vomiting in the ED. Laboratory studies and imaging not reveal evidence of acutely concerning findings. On reevaluation patient still states that she is having discomfort. I did speak with the physician on-call for Dr. Matias's, did review the patient's chart, it was stated the patient previously had been evaluated for GI discomfort with plan for the patient be seen by GI which has not yet been scheduled. Patient received pain medication, IV fluids, and antiemetics in the ED. She had no vomiting in the emergency department, is requesting by mouth fluids, which she did tolerate without. Patient that she is feeling better. Patient with a lengthy emergency department evaluation, due to delays in obtaining radiographic studies, and also in speaking with the primary care provider office. I did reevaluate the patient, she states again that she is feeling better, and is agreeable with plan to follow-up with her primary care provider for additional evaluation, to continue to take all medications as directed, to use Zofran as needed, and to follow dietary conditions regarding potassium of 3.4. Patient was given detailed return instructions, precautions, and also contact information for Dr. Randy FERRIS, to follow-up with her primary care provider tomorrow for scheduling of additional evaluation, and return to the ED if any new or concerning symptoms develop. Patient discharged home with family in stable condition with plan, prescription, precautions as above. Dragon Disclaimer Dragon Disclaimer This electronic medical record was generated, in whole or in part, using a voice recognition dictation system. Departure Impression: Primary Impression: Abdominal pain Disposition: HOME, SELF-CARE Condition: IMPROVED Scripts Ondansetron Hcl (ZOFRAN) 4 Mg Tablet 1 TAB PO PRN Q8HRS Y for NAUSEA, #10 TAB Prov: GABBIE VALENZUELA DO 03/22/17 GABBIE VALENZUELA DO Mar 22, 2017 18:44
[2017-03-22 19:00] VITALS: BP 117/89
[2017-03-22] MEDS ORDERED: ONDA4TAB7 PO (19:36)
[2017-03-22] MEDS ORDERED: ONDANSETRON ODT 4 MG TAB.RAPDIS. PO ONE (19:45)
== END 2017-03-22 19:44 | disposition home or self-care (01) ==
LOC: ER 13:27
DX: G89.29 Other chronic pain (principal); R10.9 Unspecified abdominal pain; M54.9 Dorsalgia, unspecified; R11.2 Nausea with vomiting, unspecified; K21.9 Gastro-esophageal reflux disease without esophagitis
CPT/HCPCS: 36415; 74177; 80053; 80307; 81001; 81025; 83690; 85025; 96374; 96376; 99285; J3010; Q0162; Q9967; G0479

== ENCOUNTER 2017-03-27 20:10 | Emergency (ER) | payer BC ==
[~2017-03-27] VITALS: Ht 157.5 cm; Wt 79.4 kg
[~2017-03-27 20:10] MED LIST changes: +ONDA4TAB7 PO
[2017-03-27 20:45] VITALS: BP 122/60
[2017-03-27] MEDS ORDERED: DIPHTH,PERTUSS(ACELL),TET TOX 0.5 ML DISP.SYRIN. VAX IM ONE (21:30)
[2017-03-27] MEDS ORDERED: HYDROcodone/APAP 5/325MG 1 TAB TABLET PO ONE (21:45)
[2017-03-27] MEDS ORDERED: TRAM-48 PO (22:11)
[2017-03-27] MEDS ORDERED: SULF1TAB24 PO (22:11)
--- NOTE | 2017-03-27 22:12 | PHYS DOC ---
Past Medical History Past Medical History: Depression, GERD, Other Additional Past Medical Histor: chr hip pain, chr L hand pain,vertigo, pyloneph , osteoart, neuropathy Past Surgical History: No Surgical History Additional Past Surgical Histo: DENIES Alcohol Use: None Drug Use: None Adult General Chief Complaint Chief Complaint: ABSCESS HPI HPI Patient is a 46 year old female who presents with left thumb infection. Patient states a week ago she cut herself accidentally on the left thumb. She states the area has become red and swollen. She states she has been poking the swollen area trying to drain it with a limited drainage. Patient denies any fever. Review of Systems Review of Systems Constitutional: Denies fever or chills [] Musculoskeletal: Denies back pain or joint pain [] Integument: left thumb infection Neurologic: Denies headache, focal weakness or sensory changes [] All other systems were reviewed and found to be within normal limits, except as documented in this note. Current Medications Current Medications Current Medications Medications (Trade) Dose Ordered Sig/Abel Start Time Stop Time Status Last Admin Dose Admin Acetaminophen/ Hydrocodone Bitart (Lortab 5/325) 1 tab 1X ONCE 03/27/17 21:45 03/27/17 21:46 DC 03/27/17 21:55 1 TAB Diphtheria/ Tetanus/Acell Pertussis (Boostrix) 0.5 ml ONCE ONCE 03/27/17 21:30 03/27/17 21:31 DC 03/27/17 21:56 0.5 ML Allergies Allergies Allergies Coded Allergies Type Severity Reaction Last Updated Verified No Known Drug Allergies 06/09/16 No Physical Exam Physical Exam Constitutional: Well developed, well nourished, no acute distress, non-toxic appearance. [] Skin: Warm, dry, left ventral thumb at the PIP joint with an area of induration approximately 1 x 1 cm. The area appears fluctuant yellow and has surrounding 0.2 cm of cellulitis. There is a scab in the middle of the area. Neurovascular exam is intact to the left thumb. Back: No tenderness, no CVA tenderness. [] Extremities: No tenderness, no cyanosis, no clubbing, ROM intact, no edema. [] Neurologic: Alert and oriented X 3, normal motor function, normal sensory function, no focal deficits noted. [] Psychologic: Affect normal, judgement normal, mood normal. [] Current Patient Data Vital Signs Vital Signs Date Time Temp Pulse Resp B/P (MAP) Pulse Ox O2 Delivery O2 Flow Rate FiO2 03/27/17 21:55 16 Room Air EKG EKG [] Radiology/Procedures Radiology/Procedures Indication: abscess of the left thumb Procedure: The patient was positioned appropriately. Local anesthesia was not applicable. An incision was then made over the apex of the lesion and small amount of yellow bloody material was expressed. The drainage cavity was irrigated and covered with sterile gauze. The patients tetanus status updated as needed. The patient tolerated the procedure well. Complications: none.[] Course & Med Decision Making Course & Med Decision Making Pertinent Labs and Imaging studies reviewed. (See chart for details) Patient has an abscess on cellulitis of the left thumb from a laceration one week ago. The abscess was drained in the ED by me as noted in procedures. Tetanus was updated. Discharged on Bactrim. Instructed to keep the area clean and dry. Follow-up with the PCP in 1-2 weeks. Dragon Disclaimer Dragon Disclaimer This electronic medical record was generated, in whole or in part, using a voice recognition dictation system. Departure Departure Impression: Primary Impression: Abscess of thumb, left Additional Impression: Cellulitis of thumb, left Disposition: 01 HOME, SELF-CARE Condition: STABLE Referrals: JACOB GOETZ MD (PCP) follow up in one week Patient Instructions: Fingertip Infections Additional Instructions: You were seen with left thumb infection. Take the antibiotics as prescribed. Follow-up with your doctor in 1-2 weeks. soak the finger in warm water with Epson salt twice a day for one week Scripts Tramadol Hcl (ULTRAM) 50 Mg Tablet 1 TAB PO Q6HRS, #30 TAB Prov: ELLEN LEUNG APRN 03/27/17 Sulfamethoxazole/Trimethoprim (BACTRIM DS TABLET) 1 Each Tablet 1 TAB PO BID, #20 TAB Prov: ELLEN LEUNG APRN 03/27/17 Problem Qualifiers ELLEN LEUNG APRN Mar 27, 2017 22:11
== END 2017-03-27 22:14 | disposition home or self-care (01) ==
LOC: ER 20:10
DX: L02.512 Cutaneous abscess of left hand (principal); L03.012 Cellulitis of left finger; K21.9 Gastro-esophageal reflux disease without esophagitis
CPT/HCPCS: 26010; 90471; 90715; 99283-25

== ENCOUNTER 2017-05-13 01:06 | Emergency (ER) | payer BC ==
[2017-05-13 01:37] LABS: URINE HCG POC HCG NEGATIVE (Negative)
[2017-05-13] MEDS: ASPIRIN CHEWABLE 81 MG TABLET. PO (01:45)
[2017-05-13 01:57] LABS: ADD MAN DIFF? NO
[2017-05-13 02:01] LABS: BASO # 0.1 x10^3/uL (0.0-0.2); BASO % 1 % (0-3); EOS # 0.2 x10^3/uL (0.0-0.7); EOS % 2 % (0-3); HEMOGLOBIN 12.5 g/dL (12.0-15.5); LYMPH % 43 % (24-48); MEAN CORPUSCULAR HEMOGLOBIN 28 pg (25-35); MEAN CORPUSCULAR HGB CONC 34 g/dL (31-37); MEAN CORPUSCULAR VOLUME 82 fL (79-100); MONO # 0.6 x10^3/uL (0.0-1.1); MONO % 7 % (0-9); NEUT # 4.5 x10^3uL (1.8-7.7); NEUT % 48 % (31-73); PLATELET COUNT 241 x10^3/uL (140-400); RED BLOOD COUNT 4.54 x10^6/uL (3.50-5.40); WHITE BLOOD COUNT 9.3 x10^3/uL (4.0-11.0)
[2017-05-13 02:08] LABS: ANION GAP 11 (6-14); BLOOD UREA NITROGEN 8 mg/dL (7-20); BUN/CREATININE RATIO 13 (6-20); CALCIUM 8.3 mg/dL (8.5-10.1); CARBON DIOXIDE 24 mmol/L (21-32); CHLORIDE 104 mmol/L (98-107); CREATININE 0.6 mg/dL (0.6-1.0); GFR 107.2; GLUCOSE 117 mg/dL (70-99); POTASSIUM 3.5 mmol/L (3.5-5.1); SODIUM 139 mmol/L (136-145)
[2017-05-13 02:14] LABS: ALBUMIN 3.8 g/dL (3.4-5.0); ALK PHOS 58 U/L (46-116); ALT (SGPT) 22 U/L (14-59); AST (SGOT) 22 U/L (15-37); TOTAL BILIRUBIN 0.3 mg/dL (0.2-1.0); TOTAL PROTEIN 7.5 g/dL (6.4-8.2)
[2017-05-13 02:18] LABS: TROPONINI < 0.017 ng/mL (0.000-0.055)
[2017-05-13] MEDS: IBUPROFEN 800 MG TABLET. PO (04:00)
== END 2017-05-13 04:03 | disposition home or self-care (01) ==
LOC: ER 01:06
DX: R07.89 Other chest pain (principal); F41.9 Anxiety disorder, unspecified; R42 Dizziness and giddiness; F32.9 Major depressive disorder, single episode, unspecified; K21.9 Gastro-esophageal reflux disease without esophagitis; G89.29 Other chronic pain; Z79.899 Other long term (current) drug therapy
CPT/HCPCS: 36415; 71045; 80053; 81025; 84484; 85025; 93005; 99285-25

== ENCOUNTER 2017-05-28 00:27 | Inpatient (IN) | payer BC ==
[2017-05-28] MEDS ORDERED: AMMONIA AROMATIC 15% INHALANT AMPUL. (00:36)
[2017-05-28 00:47] LABS: ADD MAN DIFF? NO
[2017-05-28] MEDS: NALOXONE 0.4 MG/ML VIAL. IV (00:47)
[2017-05-28 00:52] LABS: BASO # 0.1 x10^3/uL (0.0-0.2); BASO % 1 % (0-3); EOS # 0.2 x10^3/uL (0.0-0.7); EOS % 3 % (0-3); HEMATOCRIT 38.2 % (36.0-47.0); LYMPH # 3.8 x10^3/uL (1.0-4.8); LYMPH % 41 % (24-48); MEAN CORPUSCULAR HEMOGLOBIN 28 pg (25-35); MEAN CORPUSCULAR HGB CONC 34 g/dL (31-37); MEAN CORPUSCULAR VOLUME 81 fL (79-100); MONO # 0.5 x10^3/uL (0.0-1.1); MONO % 6 % (0-9); NEUT # 4.5 x10^3uL (1.8-7.7); NEUT % 50 % (31-73); PLATELET COUNT 223 x10^3/uL (140-400); RED BLOOD COUNT 4.72 x10^6/uL (3.50-5.40); RED CELL DISTRIBUTION WIDTH 14.9 % (11.5-14.5); WHITE BLOOD COUNT 9.2 x10^3/uL (4.0-11.0)
[2017-05-28 01:00] LABS: PROTHROMBIN TIME PATIENT 12.8 SEC (11.7-14.0)
[2017-05-28 01:02] LABS: ANION GAP 11 (6-14); BLOOD UREA NITROGEN 9 mg/dL (7-20); BUN/CREATININE RATIO 15 (6-20); CALCIUM 8.9 mg/dL (8.5-10.1); CARBON DIOXIDE 24 mmol/L (21-32); CHLORIDE 103 mmol/L (98-107); CREATININE 0.6 mg/dL (0.6-1.0); GFR 107.2; GLUCOSE 117 mg/dL (70-99); POTASSIUM 3.9 mmol/L (3.5-5.1); SODIUM 138 mmol/L (136-145)
[2017-05-28 01:08] LABS: ALBUMIN/GLOBULIN RATIO 1.1 (1.0-1.7); ALK PHOS 57 U/L (46-116); ALT (SGPT) 24 U/L (14-59); AST (SGOT) 21 U/L (15-37); TOTAL BILIRUBIN 0.3 mg/dL (0.2-1.0); TOTAL PROTEIN 7.6 g/dL (6.4-8.2)
[2017-05-28 01:10] LABS: TROPONINI < 0.017 ng/mL (0.000-0.055)
[2017-05-28 01:10] LABS: ACETAMIN < 2 mcg/ml (10-30); SALIC < 2.8 mg/dL (2.8-20.0)
[2017-05-28 01:17] LABS: BILIRUBIN,URINE NEGATIVE (NEG); CLARITY,URINE CLEAR; COLOR,URINE YELLOW; GLUCOSE,URINE NEGATIVE (NEG); NITRITE,URINE NEGATIVE (NEG); PH,URINE 6.5; PROTEIN,URINE NEGATIVE (NEG-TRACE); UROBILINOGEN,URINE 0.2 mg/dL (0.2 mg/dL)
[2017-05-28 01:22] LABS: BACTERIA,URINE 0 /HPF (0-FEW); RBC,URINE 0 /HPF (0-2); SQUAMOUS EPITHELIAL CELL,UR FEW /LPF; WBC,URINE OCC /HPF (0-4)
[2017-05-28 01:24] LABS: AMPHETAMINE/METHAMPHETAMINE NEG (NEG); BARBITURATES NEG (NEG); BENZODIAZEPINES NEG (NEG); CANNABINOIDS NEG (NEG); COCAINE NEG (NEG); ETHANOL, URINE NEG (NEG); METHADONE NEG (NEG); OPIATES NEG (NEG); PHENCYCLIDINE NEG (NEG)
[2017-05-28] MEDS: IV NORMAL SALINE 1000ML BAG 1,000 ML IV ×3 (04:38→22:30)
[2017-05-28 12:54] LABS: AMMONIA 31 mcmol/L (11-34)
[2017-05-28 13:01] LABS: THYROID STIM HORMONE (TSH) 1.042 uIU/mL (0.358-3.74)
[2017-05-28] MEDS: ONDANSETRON PF 4 MG/2 ML VIAL. IV (14:45)
[2017-05-28] MEDS: MIRTAZAPINE 15 MG TABLET PO (20:19)
[2017-05-28] MEDS: AMITRIPTYLINE HCL 25 MG TABLET. PO (20:19)
[2017-05-29 04:41] LABS: ADD MAN DIFF? NO
[2017-05-29 04:53] LABS: BASO % 0 % (0-3); EOS # 0.3 x10^3/uL (0.0-0.7); EOS % 3 % (0-3); HEMATOCRIT 33.1 % (36.0-47.0); HEMOGLOBIN 11.3 g/dL (12.0-15.5); LYMPH # 2.9 x10^3/uL (1.0-4.8); LYMPH % 30 % (24-48); MEAN CORPUSCULAR HEMOGLOBIN 28 pg (25-35); MEAN CORPUSCULAR HGB CONC 34 g/dL (31-37); MEAN CORPUSCULAR VOLUME 81 fL (79-100); MONO # 0.5 x10^3/uL (0.0-1.1); MONO % 5 % (0-9); NEUT # 5.9 x10^3uL (1.8-7.7); NEUT % 62 % (31-73); PLATELET COUNT 191 x10^3/uL (140-400); RED BLOOD COUNT 4.07 x10^6/uL (3.50-5.40); RED CELL DISTRIBUTION WIDTH 14.4 % (11.5-14.5); WHITE BLOOD COUNT 9.6 x10^3/uL (4.0-11.0)
[2017-05-29 05:16] LABS: ANION GAP 12 (6-14); BLOOD UREA NITROGEN 9 mg/dL (7-20); CALCIUM 8.4 mg/dL (8.5-10.1); CARBON DIOXIDE 22 mmol/L (21-32); CHLORIDE 108 mmol/L (98-107); CREATININE 0.6 mg/dL (0.6-1.0); GFR 107.2; GLUCOSE 98 mg/dL (70-99); POTASSIUM 3.6 mmol/L (3.5-5.1); SODIUM 142 mmol/L (136-145)
[2017-05-29] MEDS: ASPIRIN 325 MG TABLET PO (07:58)
[2017-05-29 09:41] LABS: VITAMIN-B12 398 pg/mL (247-911)
== END 2017-05-29 13:15 | disposition home or self-care (01) | DRG 880 ==
LOC: ER 00:27 → 5 SOUTH 02:40
DX: F44.9 Dissociative and conversion disorder, unspecified (principal); F20.2 Catatonic schizophrenia; F32.9 Major depressive disorder, single episode, unspecified; F39 Unspecified mood [affective] disorder; E66.9 Obesity, unspecified; G89.29 Other chronic pain; R10.9 Unspecified abdominal pain; K21.9 Gastro-esophageal reflux disease without esophagitis; R51 Headache; F43.9 Reaction to severe stress, unspecified; Z68.28 Body mass index [BMI] 28.0-28.9, adult; Z98.891 History of uterine scar from previous surgery
CPT/HCPCS: 36415; 70450; 71045; 80048; 80053; 80307; 80329; 81001; 82140; 82306; 82607; 84443; 84484; 85025; 85610; 86141; 93005; 96374; 99285-25; J2310; J2405; J7030

== ENCOUNTER 2017-06-10 21:09 | Emergency (ER) | payer BC ==
[2017-06-10] MEDS: IV NORMAL SALINE 1000ML BAG 1,000 ML IV ×2 (21:52)
[2017-06-10 21:57] LABS: ADD MAN DIFF? NO
[2017-06-10 22:00] LABS: BASO # 0.1 x10^3/uL (0.0-0.2); BASO % 1 % (0-3); EOS # 0.2 x10^3/uL (0.0-0.7); EOS % 3 % (0-3); HEMATOCRIT 33.6 % (36.0-47.0); HEMOGLOBIN 11.7 g/dL (12.0-15.5); LYMPH # 3.4 x10^3/uL (1.0-4.8); LYMPH % 39 % (24-48); MEAN CORPUSCULAR HEMOGLOBIN 28 pg (25-35); MEAN CORPUSCULAR HGB CONC 35 g/dL (31-37); MEAN CORPUSCULAR VOLUME 80 fL (79-100); MONO # 0.6 x10^3/uL (0.0-1.1); MONO % 6 % (0-9); NEUT # 4.4 x10^3uL (1.8-7.7); NEUT % 51 % (31-73); PLATELET COUNT 196 x10^3/uL (140-400); RED BLOOD COUNT 4.18 x10^6/uL (3.50-5.40); RED CELL DISTRIBUTION WIDTH 13.9 % (11.5-14.5); WHITE BLOOD COUNT 8.7 x10^3/uL (4.0-11.0)
[2017-06-10 22:12] LABS: ANION GAP 9 (6-14); BLOOD UREA NITROGEN 7 mg/dL (7-20); BUN/CREATININE RATIO 12 (6-20); CALCIUM 8.5 mg/dL (8.5-10.1); CARBON DIOXIDE 25 mmol/L (21-32); CHLORIDE 105 mmol/L (98-107); CREATININE 0.6 mg/dL (0.6-1.0); GFR 107.2; GLUCOSE 130 mg/dL (70-99); POTASSIUM 3.6 mmol/L (3.5-5.1); SODIUM 139 mmol/L (136-145)
[2017-06-10 22:16] LABS: INFLUENZA A PATIENT NEGATIVE (NEGATIVE); INFLUENZA B PATIENT NEGATIVE (NEGATIVE); OBC FLU VALID
[2017-06-10 22:18] LABS: ALBUMIN 3.4 g/dL (3.4-5.0); ALK PHOS 51 U/L (46-116); ALT (SGPT) 23 U/L (14-59); AST (SGOT) 19 U/L (15-37); C-REACTIVE PROTEIN 0.5 mg/L (0-3.3); TOTAL BILIRUBIN 0.4 mg/dL (0.2-1.0); TOTAL PROTEIN 6.9 g/dL (6.4-8.2)
[2017-06-10 22:40] LABS: BILIRUBIN,URINE NEGATIVE (NEG); CLARITY,URINE CLEAR; COLOR,URINE YELLOW; GLUCOSE,URINE NEGATIVE (NEG); NITRITE,URINE NEGATIVE (NEG); PH,URINE 6.5; PROTEIN,URINE NEGATIVE (NEG-TRACE); UROBILINOGEN,URINE 0.2 mg/dL (0.2 mg/dL)
[2017-06-10 22:46] LABS: BACTERIA,URINE 0 /HPF (0-FEW); RBC,URINE 0 /HPF (0-2); SQUAMOUS EPITHELIAL CELL,UR FEW /LPF; WBC,URINE OCC /HPF (0-4)
[2017-06-10] MEDS: oxyCODONE/APAP 5/325 1 TAB TABLET PO ×2 (23:37)
== END 2017-06-10 23:50 | disposition home or self-care (01) ==
LOC: ER 23:50
DX: R51 Headache (principal); G89.29 Other chronic pain; K59.00 Constipation, unspecified; L98.8 Other specified disorders of the skin and subcutaneous tissue; F32.9 Major depressive disorder, single episode, unspecified; K21.9 Gastro-esophageal reflux disease without esophagitis
CPT/HCPCS: 36415; 80053; 81001; 85025; 86140; 87804; 87804-59; 96360; 99284-25; J7030

== ENCOUNTER 2017-11-15 18:07 | Emergency (ER) | payer BC ==
[2017-11-15] MEDS: diazePAM 5 MG TABLET PO (18:49)
== END 2017-11-15 19:45 | disposition home or self-care (01) ==
LOC: ER 18:07
DX: M43.6 Torticollis (principal); M25.512 Pain in left shoulder; F32.9 Major depressive disorder, single episode, unspecified; K21.9 Gastro-esophageal reflux disease without esophagitis; G89.29 Other chronic pain; R53.1 Weakness
CPT/HCPCS: 99283

== ENCOUNTER 2018-01-22 21:20 | Emergency (ER) | payer BC ==
[~2018-01-22] VITALS: Ht 152.4 cm; Wt 74.8 kg
[~2018-01-22 21:20] MED LIST changes: +DIAZ5TAB4 PO; +SULF1TAB24 PO
[2018-01-22 22:38] LABS: BASO % 0 % (0-3); EOS # 0.2 x10^3/uL (0.0-0.7); EOS % 3 % (0-3); HEMATOCRIT 36.4 % (36.0-47.0); HEMOGLOBIN 12.8 g/dL (12.0-15.5); LYMPH # 3.6 x10^3/uL (1.0-4.8); LYMPH % 39 % (24-48); MEAN CORPUSCULAR HEMOGLOBIN 28 pg (25-35); MEAN CORPUSCULAR HGB CONC 35 g/dL (31-37); MEAN CORPUSCULAR VOLUME 81 fL (79-100); MONO # 0.5 x10^3/uL (0.0-1.1); MONO % 5 % (0-9); NEUT # 4.8 x10^3uL (1.8-7.7); NEUT % 53 % (31-73); PLATELET COUNT 187 x10^3/uL (140-400); RED BLOOD COUNT 4.52 x10^6/uL (3.50-5.40); WHITE BLOOD COUNT 9.2 x10^3/uL (4.0-11.0)
[2018-01-22 22:45] LABS: BILIRUBIN,URINE NEGATIVE (NEG); CLARITY,URINE CLEAR; COLOR,URINE YELLOW; NITRITE,URINE NEGATIVE (NEG); PROTEIN,URINE NEGATIVE (NEG-TRACE); UROBILINOGEN,URINE 0.2 mg/dL (0.2 mg/dL)
[2018-01-22 22:48] LABS: CALCIUM 8.6 mg/dL (8.5-10.1); CREATININE 0.6 mg/dL (0.6-1.0); GFR 106.7; POTASSIUM 3.6 mmol/L (3.5-5.1)
[2018-01-22 22:50] LABS: BACTERIA,URINE 0 /HPF (0-FEW); RBC,URINE 0 /HPF (0-2); SQUAMOUS EPITHELIAL CELL,UR FEW /LPF; WBC,URINE 0 /HPF (0-4)
[2018-01-22 22:54] LABS: ALBUMIN 3.5 g/dL (3.4-5.0); ALBUMIN/GLOBULIN RATIO 0.9 (1.0-1.7); TOTAL BILIRUBIN 0.3 mg/dL (0.2-1.0); TOTAL PROTEIN 7.3 g/dL (6.4-8.2)
[2018-01-23] MEDS ORDERED: ONDANSETRON PF 4 MG/2 ML VIAL. IV ONE
[2018-01-23] MEDS ORDERED: IV NORMAL SALINE 500ML BAG 500 ML IV ONE
[2018-01-23] MEDS ORDERED: ONDA4TAB7 PO (00:31)
[2018-01-23 00:36] VITALS: BP 109/62
[2018-01-23] MEDS ORDERED: HYDROcodone/APAP 5/325MG 1 TAB TABLET PO ONE (01:00)
--- NOTE | 2018-01-23 03:18 | PHYS DOC ---
Past Medical History Past Medical History: Depression, GERD, Unknown, Other Additional Past Medical Histor: decreased use of left arm as baseline, VERTIGO , CHRONIC ABD PAIN Past Surgical History: Additional Past Surgical Histo: DENIES Alcohol Use: None Drug Use: None Adult General Chief Complaint Chief Complaint: DIZZY/LIGHT HEADED HPI HPI Patient is a 47 year old [place] female with history of chronic vertigo who presents with dizziness nausea and headache. Symptom onset 2 days ago. No vomiting. Symptoms worse when standing. No fever chills, sweats. No palpitations , shortness breath no other acute symptoms or complaints. History is obtained from the patient patient's children. [] Review of Systems Review of Systems ROS as per HPI All other systems were reviewed and found to be within normal limits, except as documented in this note. Current Medications Current Medications Current Medications Medications (Trade) Dose Ordered Sig/Abel Start Time Stop Time Status Last Admin Dose Admin Acetaminophen/ Hydrocodone Bitart (Lortab 5/325) 1 tab 1X ONCE 01/23/18 01:00 01/23/18 01:01 DC 01/23/18 00:53 1 TAB Ondansetron HCl (Zofran) 4 mg 1X ONCE 01/23/18 00:00 01/23/18 00:01 DC 01/23/18 00:16 4 MG Sodium Chloride 500 ml @ 500 mls/hr 1X ONCE 01/23/18 00:00 01/23/18 00:59 DC 01/23/18 00:16 500 MLS/HR Allergies Allergies Allergies Coded Allergies Type Severity Reaction Last Updated Verified No Known Drug Allergies 06/09/16 No Physical Exam Physical Exam Constitutional: Well developed, well nourished, no acute distress, non-toxic appearance. [] HENT: Normocephalic, atraumatic, bilateral external ears normal, oropharynx moist, no oral exudates, nose normal. [] Eyes: PERRLA, EOMI, conjunctiva normal. [] Neck: Normal range of motion. [] Cardiovascular:Heart rate regular rhythm, no murmur [] Lungs & Thorax: Bilateral breath sounds clear to auscultation [] Abdomen: Bowel sounds normal, soft, no tenderness. [] Skin: Warm, dry, no erythema, no rash. [] Back: No tenderness. [] Extremities: No tenderness. [] Neurologic: Alert and oriented, normal motor function, normal sensory function, no focal deficits noted. [] Psychologic: Affect normal, judgement normal, mood normal. [] Current Patient Data Vital Signs Vital Signs Date Time Temp Pulse Resp B/P (MAP) Pulse Ox O2 Delivery O2 Flow Rate FiO2 01/23/18 00:53 18 99 Room Air 01/23/18 00:36 56 01/22/18 21:48 98.6 124/75 (91) 98.6 Lab Values Laboratory Tests Test 01/22/18 22:25 01/22/18 22:32 01/22/18 22:38 White Blood Count 9.2 x10^3/uL (4.0-11.0) Red Blood Count 4.52 x10^6/uL (3.50-5.40) Hemoglobin 12.8 g/dL (12.0-15.5) Hematocrit 36.4 % (36.0-47.0) Mean Corpuscular Volume 81 fL (79-100) Mean Corpuscular Hemoglobin 28 pg (25-35) Mean Corpuscular Hemoglobin Concent 35 g/dL (31-37) Red Cell Distribution Width 14.0 % (11.5-14.5) Platelet Count 187 x10^3/uL (140-400) Neutrophils (%) (Auto) 53 % (31-73) Lymphocytes (%) (Auto) 39 % (24-48) Monocytes (%) (Auto) 5 % (0-9) Eosinophils (%) (Auto) 3 % (0-3) Basophils (%) (Auto) 0 % (0-3) Neutrophils # (Auto) 4.8 x10^3uL (1.8-7.7) Lymphocytes # (Auto) 3.6 x10^3/uL (1.0-4.8) Monocytes # (Auto) 0.5 x10^3/uL (0.0-1.1) Eosinophils # (Auto) 0.2 x10^3/uL (0.0-0.7) Basophils # (Auto) 0.0 x10^3/uL (0.0-0.2) Sodium Level 141 mmol/L (136-145) Potassium Level 3.6 mmol/L (3.5-5.1) Chloride Level 105 mmol/L (98-107) Carbon Dioxide Level 26 mmol/L (21-32) Anion Gap 10 (6-14) Blood Urea Nitrogen 7 mg/dL (7-20) Creatinine 0.6 mg/dL (0.6-1.0) Estimated GFR (Cockcroft-Gault) 106.7 BUN/Creatinine Ratio 12 (6-20) Glucose Level 111 mg/dL (70-99) H Calcium Level 8.6 mg/dL (8.5-10.1) Total Bilirubin 0.3 mg/dL (0.2-1.0) Aspartate Amino Transferase (AST) 22 U/L (15-37) Alanine Aminotransferase (ALT) 29 U/L (14-59) Alkaline Phosphatase 61 U/L (46-116) Total Protein 7.3 g/dL (6.4-8.2) Albumin 3.5 g/dL (3.4-5.0) Albumin/Globulin Ratio 0.9 (1.0-1.7) L Urine Collection Type Unknown Urine Color Yellow Urine Clarity Clear Urine pH 7.0 Urine Specific [place] 1.010 Urine Protein Negative mg/dL (NEG-TRACE) Urine Glucose (UA) Negative mg/dL (NEG) Urine Ketones (Stick) Negative mg/dL (NEG) Urine Blood Negative (NEG) Urine Nitrite Negative (NEG) Urine Bilirubin Negative (NEG) Urine Urobilinogen Dipstick 0.2 mg/dL (0.2 mg/dL) Urine Leukocyte Esterase Negative (NEG) Urine RBC 0 /HPF (0-2) Urine WBC 0 /HPF (0-4) Urine Squamous Epithelial Cells Few /LPF Urine Bacteria 0 /HPF (0-FEW) POC Urine HCG, Qualitative Hcg negative (Negative) Laboratory Tests 01/22/18 22:25 Laboratory Tests 01/22/18 22:25 EKG EKG [EKG: sinus bradycardia] Radiology/Procedures Radiology/Procedures [] Course & Med Decision Making Course & Med Decision Making Pertinent Labs and Imaging studies reviewed. (See chart for details) [Symptoms improved with tx. PCP follow up. Return precautions reviewed. ] Dragon Disclaimer Dragon Disclaimer This electronic medical record was generated, in whole or in part, using a voice recognition dictation system. Departure Departure Impression: Primary Impression: Bradycardia Additional Impressions: Dizziness Nausea Disposition: 01 HOME, SELF-CARE Condition: GOOD Patient Instructions: Nausea and Vomiting, [id number], Bradycardia-Brief, Dizziness, [id number] Additional Instructions: Gianluca was evaluated emergency department for dizziness, nausea. Lab work was performed and is normal. An EKG shows a slow heart rate which may be contributing to her symptoms. Please increase fluids and take nausea medication as directed and follow-up with your primary care physician for reevaluation. Be careful when standing and walking as you are at increased risk of fall and injury. Scripts Ondansetron Hcl (ZOFRAN) 4 Mg Tablet 1 TAB PO Q6HRS, #10 TAB 0 Refills Prov: TYLER ELDER DO 01/23/18 Problem Qualifiers TYLER ELDER DO Jan 23, 2018 03:18
--- NOTE | 2018-01-23 06:37 | EKG ---
[facility] [address] [place] [address] Test Date: 2018-01-22 Test Time: 22:16:23 Pat Name: LUIS MANUEL BATES Department: Room: Gender: F Export Agent: : 1970 Requested By: TYLER ELDER Order Number: [id number] Reading MD: Adilson Escalante MD Measurements Intervals [place] Rate: 49 P: 0 [place]: 168 QRS: 24 QRSD: 90 T: 24 QT: 470 QTc: 427 Interpretive Statements SINUS BRADYCARDIA Electronically Signed On 01-23-2018 10:36:54 CDT by Adilson Escalante MD
== END 2018-01-23 01:00 | disposition home or self-care (01) ==
LOC: ER 21:20
DX: R42 Dizziness and giddiness (principal); R11.0 Nausea; R00.1 Bradycardia, unspecified; F32.9 Major depressive disorder, single episode, unspecified; K21.9 Gastro-esophageal reflux disease without esophagitis; Z98.890 Other specified postprocedural states
CPT/HCPCS: 36415; 80053; 81001; 81025; 85025; 93005; 96361; 96374; 99285; J2405; J7040

== ENCOUNTER 2018-02-17 11:52 | Emergency (ER) | payer BC ==
[~2018-02-17] VITALS: Ht 152.4 cm; Wt 74.8 kg
--- NOTE | 2018-02-17 12:22 | PHYS DOC ---
Past Medical History Past Medical History: Depression, GERD, Unknown, Other Additional Past Medical Histor: decreased use of left arm as baseline, VERTIGO , CHRONIC ABD PAIN Past Surgical History: Additional Past Surgical Histo: DENIES Alcohol Use: None Drug Use: None Adult General Chief Complaint Chief Complaint: ABDOMINAL PAIN HPI HPI She speaks primarily Armenian so translation phone was utilized for communication. 47-year-old female presents to ER with complaints of left lower abdominal pain 3 days. Patient reports she has had intermittent nausea denying vomiting or diarrhea. Patient denies urinary symptoms. She denies any fever. Patient reports history of chronic constipation reporting having small amount of bowel movement yesterday. Patient reports LMP was 15 days ago regular. Patient states she has had increased white vaginal discharge denying any odor. Patient denies any new sexual partners. Review of Systems Review of Systems Constitutional: Denies fever or chills [] Eyes: Denies change in visual acuity, redness, or eye pain [] HENT: Denies nasal congestion or sore throat [] Respiratory: Denies cough or shortness of breath [] Cardiovascular: As chest pain or palpitations GI: Denies vomiting, bloody stools or diarrhea. Patient reports left lower abdominal pain with intermittent nausea : Denies dysuria or hematuria. Reports white vaginal discharge denies odor or abnormal vaginal bleeding Musculoskeletal: Denies back pain or joint pain [] Integument: Denies rash or skin lesions [] Neurologic: Denies headache, focal weakness or sensory changes [] All other systems were reviewed and found to be within normal limits, except as documented in this note. Current Medications Current Medications Current Medications Medications (Trade) Dose Ordered Sig/Abel Start Time Stop Time Status Last Admin Dose Admin Acetaminophen/ Hydrocodone Bitart (Lortab 5/325) 1 tab 1X ONCE 02/17/18 15:45 02/17/18 15:49 DC 02/17/18 15:54 1 TAB Azithromycin (Zithromax) 1,000 mg 1X ONCE 02/17/18 15:45 02/17/18 15:46 DC 02/17/18 15:53 1,000 MG Ceftriaxone Sodium (Rocephin Im) 250 mg 1X ONCE 02/17/18 15:45 02/17/18 15:46 DC 02/17/18 15:54 250 MG Fentanyl Citrate (Fentanyl 2ml Vial) 25 mcg 1X ONCE 02/17/18 14:00 02/17/18 14:01 DC 02/17/18 14:02 25 MCG Ondansetron HCl (Zofran) 4 mg 1X ONCE 02/17/18 12:45 02/17/18 12:46 DC 02/17/18 13:08 4 MG Allergies Allergies Allergies Coded Allergies Type Severity Reaction Last Updated Verified No Known Drug Allergies 06/09/16 No Physical Exam Physical Exam Constitutional: Well developed, well nourished, no acute distress, non-toxic appearance. [] HENT: Normocephalic, atraumatic, oropharynx moist, no oral exudates, nose normal. [] Eyes: Pupils equal, conjunctiva normal, no discharge. [] Neck: Normal range of motion, no tenderness, supple, no stridor. [] Cardiovascular:Heart rate regular rhythm, no murmur [] Lungs & Thorax: Bilateral breath sounds clear to auscultation respirations equal and nonlabored Abdomen: Bowel sounds normal, soft/no distention or rigidity. Tender to palpation left lower abdomen, no masses, no pulsatile masses. [] Skin: Warm, dry, no erythema, no rash. [] Back: No tenderness, no CVA tenderness. [] Extremities: No tenderness, no cyanosis, no clubbing, ROM intact, no edema. [] Neurologic: Alert and oriented X 3, normal motor function, normal sensory function, no focal deficits noted. [] Psychologic: Affect normal, judgement normal, mood normal. [] Current Patient Data Vital Signs Vital Signs Date Time Temp Pulse Resp B/P (MAP) Pulse Ox O2 Delivery O2 Flow Rate FiO2 02/17/18 15:55 78 24 126/88 (101) 99 Room Air 02/17/18 12:03 98.1 98.1 Lab Values Laboratory Tests Test 02/17/18 12:07 02/17/18 12:12 02/17/18 12:39 Urine Collection Type Void Urine Color Yellow Urine Clarity Clear Urine pH 6.5 Urine Specific [place] 1.015 Urine Protein Negative mg/dL (NEG-TRACE) Urine Glucose (UA) Negative mg/dL (NEG) Urine Ketones (Stick) Negative mg/dL (NEG) Urine Blood Negative (NEG) Urine Nitrite Negative (NEG) Urine Bilirubin Negative (NEG) Urine Urobilinogen Dipstick 0.2 mg/dL (0.2 mg/dL) Urine Leukocyte Esterase Trace (NEG) Urine RBC 0 /HPF (0-2) Urine WBC 1-4 /HPF (0-4) Urine Squamous Epithelial Cells Many /LPF Urine Bacteria Moderate /HPF (0-FEW) Urine Mucus Marked /LPF POC Urine HCG, Qualitative Hcg negative (Negative) White Blood Count 6.6 x10^3/uL (4.0-11.0) Red Blood Count 4.37 x10^6/uL (3.50-5.40) Hemoglobin 12.5 g/dL (12.0-15.5) Hematocrit 35.5 % (36.0-47.0) L Mean Corpuscular Volume 81 fL (79-100) Mean Corpuscular Hemoglobin 29 pg (25-35) Mean Corpuscular Hemoglobin Concent 35 g/dL (31-37) Red Cell Distribution Width 13.7 % (11.5-14.5) Platelet Count 168 x10^3/uL (140-400) Neutrophils (%) (Auto) 48 % (31-73) Lymphocytes (%) (Auto) 43 % (24-48) Monocytes (%) (Auto) 6 % (0-9) Eosinophils (%) (Auto) 3 % (0-3) Basophils (%) (Auto) 1 % (0-3) Neutrophils # (Auto) 3.2 x10^3uL (1.8-7.7) Lymphocytes # (Auto) 2.8 x10^3/uL (1.0-4.8) Monocytes # (Auto) 0.4 x10^3/uL (0.0-1.1) Eosinophils # (Auto) 0.2 x10^3/uL (0.0-0.7) Basophils # (Auto) 0.0 x10^3/uL (0.0-0.2) Sodium Level 140 mmol/L (136-145) Potassium Level 3.3 mmol/L (3.5-5.1) L Chloride Level 106 mmol/L (98-107) Carbon Dioxide Level 24 mmol/L (21-32) Anion Gap 10 (6-14) Blood Urea Nitrogen 9 mg/dL (7-20) Creatinine 0.7 mg/dL (0.6-1.0) Estimated GFR (Cockcroft-Gault) 89.3 BUN/Creatinine Ratio 13 (6-20) Glucose Level 101 mg/dL (70-99) H Calcium Level 8.4 mg/dL (8.5-10.1) L Total Bilirubin 0.6 mg/dL (0.2-1.0) Aspartate Amino Transferase (AST) 36 U/L (15-37) Alanine Aminotransferase (ALT) 53 U/L (14-59) Alkaline Phosphatase 61 U/L (46-116) Total Protein 7.0 g/dL (6.4-8.2) Albumin 3.5 g/dL (3.4-5.0) Albumin/Globulin Ratio 1.0 (1.0-1.7) Lipase 140 U/L (73-393) Laboratory Tests 02/17/18 12:39 Laboratory Tests 02/17/18 12:39 Microbiology 02/17/18 Wet Prep - Final, Complete EKG EKG [] Radiology/Procedures Radiology/Procedures Pelvic Exam: RN Inga present Abdomen: Soft- tender to palp. suprapubic/lt adnexal External Genitalia: Normal Skin Speculum: Normal vaginal mucosa- no erythema or vaginal lesions, cervix os is closed, copious amt of white/mucousy discharge- nonmalodorous Bimanual: No adnexal masses, No CMT PROCEDURE: PELVIS W/TV Pelvic ultrasound to include transabdominal and transvaginal imaging 02/17/2018 CLINICAL HISTORY: Pelvic pain. TECHNIQUE: Using the distended urinary bladder as a sonographic window, a real-time ultrasound examination of the pelvis was performed. Additionally in an attempt to better evaluate the uterus and adnexa, a transvaginal ultrasound study was performed. Multiple images were obtained. FINDINGS: Comparison is made to patient's CT scan of the pelvis dated 03/22/2017. The uterus is within normal limits in size and echogenicity. It measures 14.0 x 6.2 x 4.7 cm in longitudinal, transverse, and AP dimensions. A nabothian cyst is seen within the cervix. This measures 1.9 cm in size. The endometrial echo complex is thickened measuring 2.3 cm in thickness. No focal abnormality of the uterus is seen. Both ovaries are within normal limits in size and echogenicity. The right ovary measures 3.1 x 2.2 x 3.8 cm in size. Left ovary measures 2.8 x 2.0 x 1.7 cm in size. A 2.4 cm dominant follicle is seen within the right ovary. No adnexal mass is seen. No free fluid is noted. IMPRESSION: The endometrial echo complex is thickened measuring 2.3 cm. Differential etiologies for this would include endometrial hyperplasia, endometrial polyps or possibly endometrial carcinoma. Electronically signed by: Alejo Shook MD (02/17/2018 3:51 PM) [facility] [place] and SIGNED BY: ALEJO SHOOK MD DATE: 02/17/18 1547 Course & Med Decision Making Course & Med Decision Making Pertinent Labs and Imaging studies reviewed. (See chart for details) 1543: Translation phone discussed patient's test results- labs were unremarkable with HCG neg. and UA with leuks/blood. WBCs NL at 6.6; CMP with K+ 3.3 and calcium 8.4. Pt advised on increase of calcium and f/u with PCP and have labs rechecked. Patient reports she has had some improvement in left lower abdominal pain with treatments received however is wanting additional pain medication so will provide [place] tablet prior to discharge. Discussed plans for prescription for Flagyl with discharge paperwork for tx of BV and with pending cxs will tx while in ER with Rocephin IM/Azithromycin PO. US results were discussed with endometrium thickening without other acute findings. Wet mount results neg. for trich/yeast. Patient to follow-up with primary care physician in next 3-5 days for reevaluation and further care. Small quantity of [place] tablets with discharge paperwork and patient to use [id number] ibuprofen as directed on container. Patient remains nontoxic in appearance and in no visible distress at time of discussion. Discharge instructions were discussed and education provided on signs and symptoms to return to ER for. Patient is agreeable with discharge plan and verbalized understanding. Dragon Disclaimer Dragon Disclaimer This electronic medical record was generated, in whole or in part, using a voice recognition dictation system. Departure Departure Impression: Primary Impression: Abdominal pain Additional Impression: Bacterial vaginosis Disposition: 01 HOME, SELF-CARE Condition: STABLE Referrals: JACOB GOETZ MD (PCP) Patient Instructions: Abdominal Pain, Bacterial Vaginosis Additional Instructions: Over the counter ibuprofen as directed on container for pain control as needed. Your cultures for gonorrhea and chlamydia are pending- follow up on results in next 2-3 days. Avoid drinking alcohol while taking Flagyl prescription and for 3 days after completing prescription. Scripts Hydrocodone/Apap 5-325 (NORCO 5-325 TABLET) 1 Each Tablet 1 TAB PO PRN Q6HRS PRN for PAIN, #10 TAB 0 Refills Prov: LETICIA CHIRINOS APRN 02/17/18 Metronidazole (FLAGYL) 500 Mg Tablet 1 TAB PO BID, #14 TAB 0 Refills Prov: LETICIA CHIRINOS APRN 02/17/18 Problem Qualifiers LETICIA CHIRINOS APRN Feb 17, 2018 12:22
[2018-02-17] MEDS ORDERED: ONDANSETRON PF 4 MG/2 ML VIAL. IV ONE (12:45)
[2018-02-17 12:50] LABS: BASO % 1 % (0-3); EOS # 0.2 x10^3/uL (0.0-0.7); EOS % 3 % (0-3); HEMATOCRIT 35.5 % (36.0-47.0); HEMOGLOBIN 12.5 g/dL (12.0-15.5); LYMPH # 2.8 x10^3/uL (1.0-4.8); LYMPH % 43 % (24-48); MEAN CORPUSCULAR HEMOGLOBIN 29 pg (25-35); MEAN CORPUSCULAR HGB CONC 35 g/dL (31-37); MEAN CORPUSCULAR VOLUME 81 fL (79-100); MONO # 0.4 x10^3/uL (0.0-1.1); MONO % 6 % (0-9); NEUT # 3.2 x10^3uL (1.8-7.7); NEUT % 48 % (31-73); PLATELET COUNT 168 x10^3/uL (140-400); RED BLOOD COUNT 4.37 x10^6/uL (3.50-5.40); RED CELL DISTRIBUTION WIDTH 13.7 % (11.5-14.5); WHITE BLOOD COUNT 6.6 x10^3/uL (4.0-11.0)
[2018-02-17 12:51] LABS: BILIRUBIN,URINE NEGATIVE (NEG); CLARITY,URINE CLEAR; COLOR,URINE YELLOW; NITRITE,URINE NEGATIVE (NEG); PH,URINE 6.5; PROTEIN,URINE NEGATIVE (NEG-TRACE); UROBILINOGEN,URINE 0.2 mg/dL (0.2 mg/dL)
[2018-02-17 12:58] LABS: BACTERIA,URINE MODERATE /HPF (0-FEW); RBC,URINE 0 /HPF (0-2); SQUAMOUS EPITHELIAL CELL,UR MANY /LPF
[2018-02-17 13:00] LABS: CALCIUM 8.4 mg/dL (8.5-10.1); CREATININE 0.7 mg/dL (0.6-1.0); GFR 89.3; POTASSIUM 3.3 mmol/L (3.5-5.1)
[2018-02-17 13:15] LABS: ALBUMIN 3.5 g/dL (3.4-5.0); TOTAL BILIRUBIN 0.6 mg/dL (0.2-1.0)
[2018-02-17] MEDS ORDERED: fentaNYL PF VIAL 100 MCG/2 ML VIAL IV ONE (14:00)
[2018-02-17] MEDS ORDERED: AZITHROMYCIN 250 MG TABLET. PO ONE (15:45)
[2018-02-17] MEDS ORDERED: cefTRIAXone IM 250 MG VIAL IM ONE (15:45)
[2018-02-17] MEDS ORDERED: HYDROcodone/APAP 5/325MG 1 TAB TABLET PO ONE (15:45)
[2018-02-17] MEDS ORDERED: METR500T PO (15:50)
[2018-02-17] MEDS ORDERED: HYDR-971 PO (15:50)
--- NOTE | 2018-02-17 15:53 | RAD ---
Pelvic ultrasound to include transabdominal and transvaginal imaging 02/17/2018 CLINICAL HISTORY: Pelvic pain. TECHNIQUE: Using the distended urinary bladder as a sonographic window, a real-time ultrasound examination of the pelvis was performed. Additionally in an attempt to better evaluate the uterus and adnexa, a transvaginal ultrasound study was performed. Multiple images were obtained. FINDINGS: Comparison is made to patient's CT scan of the pelvis dated 03/22/2017. The uterus is within normal limits in size and echogenicity. It measures 14.0 x 6.2 x 4.7 cm in longitudinal, transverse, and AP dimensions. A nabothian cyst is seen within the cervix. This measures 1.9 cm in size. The endometrial echo complex is thickened measuring 2.3 cm in thickness. No focal abnormality of the uterus is seen. Both ovaries are within normal limits in size and echogenicity. The right ovary measures 3.1 x 2.2 x 3.8 cm in size. Left ovary measures 2.8 x 2.0 x 1.7 cm in size. A 2.4 cm dominant follicle is seen within the right ovary. No adnexal mass is seen. No free fluid is noted. IMPRESSION: The endometrial echo complex is thickened measuring 2.3 cm. Differential etiologies for this would include endometrial hyperplasia, endometrial polyps or possibly endometrial carcinoma. Electronically signed by: Alejo Martinez MD (02/17/2018 3:51 PM) [facility] [place]
[2018-02-17 15:55] VITALS: BP 126/88
[2018-02-19 15:29] LABS: GC PROBE Negative (Negative)
== END 2018-02-17 16:04 | disposition home or self-care (01) ==
LOC: ER 11:52
DX: N76.0 Acute vaginitis (principal); B96.89 Other specified bacterial agents as the cause of diseases classified elsewhere; R10.32 Left lower quadrant pain; F32.9 Major depressive disorder, single episode, unspecified; K21.9 Gastro-esophageal reflux disease without esophagitis; G89.29 Other chronic pain; Z98.890 Other specified postprocedural states
CPT/HCPCS: 36415; 76830; 76856; 80053; 81001; 81025; 83690; 85025; 87086; 87491; 87591; 96372; 96374; 96375; 99285; J0696; J2405; J3010; Q0111; Q0144

== ENCOUNTER 2018-04-02 19:39 | Emergency (ER) | payer BC ==
[~2018-04-02] VITALS: Ht 152.4 cm; Wt 72.6 kg
[~2018-04-02 19:39] MED LIST changes: -GABA-587 PO; +GABA-689 PO; -HYDR-2758 PO; +HYDR-2761 PO; +HYDR-3164 PO; +METR500T PO
[2018-04-02] MEDS ORDERED: IV NORMAL SALINE 1000ML BAG 1,000 ML IV SCH (21:00)
--- NOTE | 2018-04-02 21:14 | PHYS DOC ---
Past Medical History Past Medical History: Depression, GERD, P.U.D., Unknown, Other Additional Past Medical Histor: decreased use of left arm as baseline,VERTIGO, CHRONIC ABD PAIN,PUD? Past Surgical History: Additional Past Surgical Histo: DENIES Alcohol Use: None Drug Use: None Adult General Chief Complaint Chief Complaint: CHEST PAIN-NON CARDIAC NATURE HPI HPI Patient is a 47-year-old female who presents with complaint of anterior chest pain that started yesterday. Patient describes pain as being sharp and stabbing in nature and states the pain is worsened with deep breathing. Pain is also worsened with movement. Patient denies any cough or shortness of breath but does state that reading the makes it hurt more so she doesn't want to breathe deeply. She denies any fever. She also denies any nausea, vomiting or diaphoresis. Patient does admit to some upper back pain as well. She states that nothing is improving her symptoms. Review of Systems Review of Systems Constitutional: Denies fever or chills [] Respiratory: Denies cough or shortness of breath [] Cardiovascular: No additional information not addressed in HPI [] GI: Denies abdominal pain, nausea, vomiting or diarrhea [] Musculoskeletal: Complains of upper back pain [] Integument: Denies rash or skin lesions [] All other systems were reviewed and found to be within normal limits, except as documented in this note. Current Medications Current Medications Current Medications Medications (Trade) Dose Ordered Sig/Abel Start Time Stop Time Status Last Admin Dose Admin Aspirin (Children'S Aspirin) 324 mg 1X ONCE 04/02/18 21:30 04/02/18 21:31 DC 04/02/18 21:10 324 MG Sodium Chloride 1,000 ml @ 1,000 mls/hr Q1H 04/02/18 21:00 04/02/18 21:59 DC 04/02/18 21:09 1,000 MLS/HR Allergies Allergies Allergies Coded Allergies Type Severity Reaction Last Updated Verified No Known Drug Allergies 06/09/16 No Physical Exam Physical Exam Constitutional: Well developed, well nourished, no acute distress, non-toxic appearance. [] HENT: Normocephalic, atraumatic, bilateral external ears normal, oropharynx moist, no oral exudates, nose normal. [] Eyes: PERRLA, EOMI, conjunctiva normal. [] Neck: Normal range of motion, no tenderness, supple. [] Cardiovascular: Regular rate and rhythm. There is reproducible chest wall tenderness along the bilateral lower sternal borders.[] Lungs & Thorax: Bilateral breath sounds clear to auscultation [] Abdomen: Bowel sounds normal, soft, no tenderness. [] Skin: Warm, dry, no erythema, no rash. [] Back: There is tenderness to palpation in the upper thoracic paraspinal musculature as well as well as the trapezius muscles right greater than left. [ ] Extremities: No tenderness, no cyanosis, no clubbing, ROM intact, no edema. [] Neurologic: Alert and oriented X 3, normal motor function, normal sensory function, no focal deficits noted. [] Current Patient Data Vital Signs Vital Signs Date Time Temp Pulse Resp B/P (MAP) Pulse Ox O2 Delivery O2 Flow Rate FiO2 04/02/18 20:45 98.2 45 20 150/65 (93) 98 Room Air 98.2 Lab Values Laboratory Tests Test 04/02/18 21:11 White Blood Count 8.9 x10^3/uL (4.0-11.0) Red Blood Count 4.30 x10^6/uL (3.50-5.40) Hemoglobin 12.5 g/dL (12.0-15.5) Hematocrit 35.4 % (36.0-47.0) L Mean Corpuscular Volume 82 fL (79-100) Mean Corpuscular Hemoglobin 29 pg (25-35) Mean Corpuscular Hemoglobin Concent 35 g/dL (31-37) Red Cell Distribution Width 13.9 % (11.5-14.5) Platelet Count 187 x10^3/uL (140-400) Neutrophils (%) (Auto) 50 % (31-73) Lymphocytes (%) (Auto) 40 % (24-48) Monocytes (%) (Auto) 6 % (0-9) Eosinophils (%) (Auto) 3 % (0-3) Basophils (%) (Auto) 1 % (0-3) Neutrophils # (Auto) 4.5 x10^3uL (1.8-7.7) Lymphocytes # (Auto) 3.6 x10^3/uL (1.0-4.8) Monocytes # (Auto) 0.6 x10^3/uL (0.0-1.1) Eosinophils # (Auto) 0.2 x10^3/uL (0.0-0.7) Basophils # (Auto) 0.1 x10^3/uL (0.0-0.2) Sodium Level 140 mmol/L (136-145) Potassium Level 3.4 mmol/L (3.5-5.1) L Chloride Level 105 mmol/L (98-107) Carbon Dioxide Level 23 mmol/L (21-32) Anion Gap 12 (6-14) Blood Urea Nitrogen 10 mg/dL (7-20) Creatinine 0.7 mg/dL (0.6-1.0) Estimated GFR (Cockcroft-Gault) 89.3 BUN/Creatinine Ratio 14 (6-20) Glucose Level 115 mg/dL (70-99) H Calcium Level 8.7 mg/dL (8.5-10.1) Magnesium Level 2.0 mg/dL (1.8-2.4) Total Bilirubin 0.4 mg/dL (0.2-1.0) Aspartate Amino Transferase (AST) 24 U/L (15-37) Alanine Aminotransferase (ALT) 33 U/L (14-59) Alkaline Phosphatase 57 U/L (46-116) Troponin I Quantitative 0.017 ng/mL (0.000-0.055) Total Protein 7.3 g/dL (6.4-8.2) Albumin 4.0 g/dL (3.4-5.0) Albumin/Globulin Ratio 1.2 (1.0-1.7) Lipase 139 U/L (73-393) Laboratory Tests 04/02/18 21:11 Laboratory Tests 04/02/18 21:11 EKG EKG [] Interpretation Time: EKG demonstrates a normal sinus rhythm with rate of 66. Radiology/Procedures Radiology/Procedures [] Impressions: Chest x-ray demonstrates no acute process. Course & Med Decision Making Course & Med Decision Making Pertinent Labs and Imaging studies reviewed. (See chart for details) [] Dragon Disclaimer Dragon Disclaimer This electronic medical record was generated, in whole or in part, using a voice recognition dictation system. Departure Departure Impression: Primary Impression: Costochondritis Disposition: 01 HOME, SELF-CARE Condition: STABLE Referrals: JACOB GOETZ MD (PCP) Patient Instructions: Costochondritis Scripts Diclofenac Sodium (DICLOFENAC SODIUM) 50 Mg Tablet.dr 1 TAB PO BID, #20 TAB Prov: YENY YBARRA Jr. DO 04/02/18 Tramadol Hcl (TRAMADOL HCL) 50 Mg Tablet 50 MG PO Q6HRS PRN for PAIN for 3 Days, #12 TAB Prov: YENY YBARRA Jr. DO 04/02/18 YENY YBARRA Jr. DO Apr 02, 2018 21:14
[2018-04-02 21:23] LABS: BASO # 0.1 x10^3/uL (0.0-0.2); BASO % 1 % (0-3); EOS # 0.2 x10^3/uL (0.0-0.7); EOS % 3 % (0-3); HEMATOCRIT 35.4 % (36.0-47.0); HEMOGLOBIN 12.5 g/dL (12.0-15.5); LYMPH # 3.6 x10^3/uL (1.0-4.8); LYMPH % 40 % (24-48); MEAN CORPUSCULAR HEMOGLOBIN 29 pg (25-35); MEAN CORPUSCULAR HGB CONC 35 g/dL (31-37); MEAN CORPUSCULAR VOLUME 82 fL (79-100); MONO # 0.6 x10^3/uL (0.0-1.1); MONO % 6 % (0-9); NEUT # 4.5 x10^3uL (1.8-7.7); NEUT % 50 % (31-73); PLATELET COUNT 187 x10^3/uL (140-400); RED CELL DISTRIBUTION WIDTH 13.9 % (11.5-14.5); WHITE BLOOD COUNT 8.9 x10^3/uL (4.0-11.0)
[2018-04-02] MEDS ORDERED: ASPIRIN CHEWABLE 81 MG TABLET. PO ONE (21:30)
[2018-04-02 21:41] LABS: CALCIUM 8.7 mg/dL (8.5-10.1); CREATININE 0.7 mg/dL (0.6-1.0); GFR 89.3; POTASSIUM 3.4 mmol/L (3.5-5.1)
[2018-04-02 21:55] LABS: ALBUMIN/GLOBULIN RATIO 1.2 (1.0-1.7); TOTAL BILIRUBIN 0.4 mg/dL (0.2-1.0); TOTAL PROTEIN 7.3 g/dL (6.4-8.2)
[2018-04-02 22:30] VITALS: BP 110/59
[2018-04-02] MEDS ORDERED: DICL50TA4 PO (23:06)
[2018-04-02] MEDS ORDERED: TRAM50TA PO (23:06)
--- NOTE | 2018-04-02 23:52 | RAD ---
Indication:MEDIAL CHEST PAIN,SOA SINCE THIS MORNING TECHNIQUE:Portable AP chest X-ray COMPARISON:05/28/2017 FINDINGS: Heart is top normal in size. Lungs are clear. No pneumothorax or pleural effusion. Visualized bony thorax is within normal limits. IMPRESSION: No acute pulmonary process. Electronically signed by: Washington Mejía DO (04/02/2018 11:48 PM) [facility]
--- NOTE | 2018-04-03 06:17 | EKG ---
[facility] [address] [place] [address] Test Date: 2018-04-02 Test Time: 20:37:45 Pat Name: LUIS MANUEL BATES Department: Room: Gender: F Beef Trimmer: : 1970 Requested By: YENY YBARRA Order Number: [id number] Reading MD: Measurements Intervals [place] Rate: 66 P: [place]: QRS: 50 QRSD: 92 T: 43 QT: 428 QTc: 451 Interpretive Statements IRREGULAR RHYTHM, NO P-WAVE FOUND NO SPECIFIC ECG ABNORMALITIES RI6.01 No previous ECG available for comparison
== END 2018-04-02 23:33 | disposition home or self-care (01) ==
LOC: ER 19:39
DX: M94.0 Chondrocostal junction syndrome [Tietze] (principal); M54.6 Pain in thoracic spine; F32.9 Major depressive disorder, single episode, unspecified; K21.9 Gastro-esophageal reflux disease without esophagitis; Z98.890 Other specified postprocedural states
CPT/HCPCS: 36415; 71045; 80053; 83690; 83735; 84484; 85025; 93005; 99284; J7030

== ENCOUNTER 2018-04-17 23:43 | Emergency (ER) | payer BC ==
[~2018-04-17] VITALS: Ht 160 cm; Wt 63.5 kg
[~2018-04-17 23:43] MED LIST changes: +DICL50TA4 PO
[2018-04-18 00:26] VITALS: BP 120/77
--- NOTE | 2018-04-18 01:10 | PHYS DOC ---
Past Medical History Past Medical History: Depression Additional Past Medical Histor: decreased use of left arm as baseline,VERTIGO, CHRONIC ABD PAIN,PUD? Past Surgical History: Additional Past Surgical Histo: BACK SX Alcohol Use: None Drug Use: None Adult General Chief Complaint Chief Complaint: PAIN ON URINATION HPI HPI Patient is a 47 year old female who presents with pain with urination that started today. No fever. No flank pain. Patient took an unknown medicine to try to help with the pain but it has provided no relief. No nausea, no vomiting, no diarrhea. [] Review of Systems Review of Systems Constitutional: Denies fever or chills [] Eyes: Denies change in visual acuity, redness, or eye pain [] HENT: Denies nasal congestion or sore throat [] Respiratory: Denies cough or shortness of breath [] Cardiovascular: No chest pain or palpitations[] GI: Denies abdominal pain, nausea, vomiting, bloody stools or diarrhea [] : See history of present illness[] Musculoskeletal: Denies back pain or joint pain [] Integument: Denies rash or skin lesions [] Neurologic: Denies headache, focal weakness or sensory changes [] Endocrine: Denies polyuria or polydipsia [] All other systems were reviewed and found to be within normal limits, except as documented in this note. Current Medications Current Medications Current Medications Medications (Trade) Dose Ordered Sig/Abel Start Time Stop Time Status Last Admin Dose Admin Phenazopyridine HCl (Pyridium) 200 mg 1X ONCE 04/18/18 01:30 04/18/18 01:31 DC 04/18/18 01:26 200 MG Allergies Allergies Allergies Coded Allergies Type Severity Reaction Last Updated Verified No Known Drug Allergies 06/09/16 No Physical Exam Physical Exam Constitutional: Well developed, well nourished, no acute distress, non-toxic appearance. [] HENT: Normocephalic, atraumatic, bilateral external ears normal, oropharynx moist, no oral exudates, nose normal. [] Eyes: PERRLA, EOMI, conjunctiva normal, no discharge. [] Neck: Normal range of motion, no tenderness, supple, no stridor. [] Cardiovascular:Heart rate regular rhythm, no murmur [] Lungs & Thorax: Bilateral breath sounds clear to auscultation [] Abdomen: Bowel sounds normal, soft, no tenderness, no masses, no pulsatile masses. [] Skin: Warm, dry, no erythema, no rash. [] Back: No tenderness, no CVA tenderness. [] Extremities: No tenderness, no cyanosis, no clubbing, ROM intact, no edema. [] Neurologic: Alert and oriented X 3, normal motor function, normal sensory function, no focal deficits noted. [] Psychologic: Affect normal, judgement normal, mood normal. [] Current Patient Data Vital Signs Vital Signs Date Time Temp Pulse Resp B/P (MAP) Pulse Ox O2 Delivery O2 Flow Rate FiO2 04/18/18 00:26 98.0 65 16 120/77 (91) 99 Room Air 98.0 Lab Values Laboratory Tests Test 04/18/18 01:57 Urine Collection Type U cath Urine Color Yellow Urine Clarity Clear Urine pH 6.0 Urine Specific [place] 1.020 Urine Protein Negative mg/dL (NEG-TRACE) Urine Glucose (UA) Negative mg/dL (NEG) Urine Ketones (Stick) Trace mg/dL (NEG) Urine Blood Negative (NEG) Urine Nitrite Negative (NEG) Urine Bilirubin Negative (NEG) Urine Urobilinogen Dipstick 0.2 mg/dL (0.2 mg/dL) Urine Leukocyte Esterase Trace (NEG) Urine RBC Occ /HPF (0-2) Urine WBC 1-4 /HPF (0-4) Urine Squamous Epithelial Cells Few /LPF Urine Bacteria Few /HPF (0-FEW) Urine Mucus Slight /LPF Urine Test Negative (NEG) EKG EKG [] Radiology/Procedures Radiology/Procedures [] Course & Med Decision Making Course & Med Decision Making Pertinent Labs and Imaging studies reviewed. (See chart for details) ED course: Patient arrived, was placed in bed, tolerate exam well. Patient had a bladder scan performed which showed a fair post void residual. Patient was given an in and out catheter to obtain urine. After the return of the laboratory findings, these were discussed with the patient and family who voiced understanding. All questions were answered. Ankle decision making: No evidence of systemic toxicity. We will cover patient for possible retention. And we'll cover for the dysuria.[] Dragon Disclaimer Dragon Disclaimer This electronic medical record was generated, in whole or in part, using a voice recognition dictation system. Departure Departure Impression: Primary Impression: Urinary tract infection Additional Impression: Urinary retention Disposition: 01 HOME, SELF-CARE Condition: GOOD Referrals: JACOB GOETZ MD (PCP) Follow-up in 2 days Patient Instructions: Urinary Retention, Acute, Female, Urinary Tract Infection Additional Instructions: Follow-up with your regular doctor in 2 days. Return to the ER if worsening discomfort, inability to urinate, or any other concerns. Scripts Phenazopyridine Hcl (PYRIDIUM) 200 Mg Tablet 200 MG PO TID, #6 TAB Prov: CHERIE ELLINGTON DO 04/18/18 Sulfamethoxazole/Trimethoprim (BACTRIM DS TABLET) 1 Each Tablet 1 TAB PO BID, #14 TAB Prov: CHERIE ELLINGTON DO 04/18/18 Tamsulosin Hcl (FLOMAX) 0.4 Mg Cap.er.24h 0.4 MG PO DAILY for 10 Days, #10 TAB Prov: CHERIE ELLINGTON DO 04/18/18 Problem Qualifiers Primary Impression: Urinary tract infection Urinary tract infection type: site unspecified Hematuria presence: without hematuria Qualified Codes: N39.0 - Urinary tract infection, site not specified CHERIE ELLINGTON DO Apr 18, 2018 01:10
[2018-04-18] MEDS ORDERED: PHENAZOPYRIDINE 200 MG TABLET. PO ONE (01:30)
[2018-04-18 02:17] LABS: BILIRUBIN,URINE NEGATIVE (NEG); CLARITY,URINE CLEAR; COLOR,URINE YELLOW; NITRITE,URINE NEGATIVE (NEG); PROTEIN,URINE NEGATIVE (NEG-TRACE); UROBILINOGEN,URINE 0.2 mg/dL (0.2 mg/dL)
[2018-04-18 02:23] LABS: U PREG PATIENT NEGATIVE (NEG)
[2018-04-18 02:34] LABS: BACTERIA,URINE FEW /HPF (0-FEW); RBC,URINE OCC /HPF (0-2); SQUAMOUS EPITHELIAL CELL,UR FEW /LPF
[2018-04-18] MEDS ORDERED: SULF1TAB24 PO (03:01)
[2018-04-18] MEDS ORDERED: PHEN-318 PO (03:01)
[2018-04-18] MEDS ORDERED: TAMS0.4C97 PO (03:01)
== END 2018-04-18 03:14 | disposition home or self-care (01) ==
LOC: ER 23:43
DX: N39.0 Urinary tract infection, site not specified (principal); R33.9 Retention of urine, unspecified; G89.29 Other chronic pain; R10.9 Unspecified abdominal pain
CPT/HCPCS: 51701; 81001; 81025; 99283; 99284

== ENCOUNTER 2018-05-16 21:58 | Emergency (ER) | payer BC ==
[~2018-05-16] VITALS: Ht 152.4 cm; Wt 72.6 kg
[~2018-05-16 21:58] MED LIST changes: +PHEN-318 PO; +TAMS0.4C97 PO
[2018-05-16 22:08] VITALS: BP 127/86
[2018-05-16] MEDS ORDERED: IV NORMAL SALINE 1000ML BAG 1,000 ML IV ONE (23:00)
[2018-05-16] MEDS ORDERED: ONDANSETRON PF 4 MG/2 ML VIAL. IV ONE (23:00)
[2018-05-16] MEDS ORDERED: MORPHINE SULFATE 4 MG/ML VIAL. IV ONE (23:00)
[2018-05-16 23:01] LABS: BASO % 1 % (0-3); EOS # 0.3 x10^3/uL (0.0-0.7); EOS % 4 % (0-3); HEMATOCRIT 34.8 % (36.0-47.0); HEMOGLOBIN 11.6 g/dL (12.0-15.5); LYMPH # 3.8 x10^3/uL (1.0-4.8); LYMPH % 49 % (24-48); MEAN CORPUSCULAR HEMOGLOBIN 27 pg (25-35); MEAN CORPUSCULAR HGB CONC 33 g/dL (31-37); MEAN CORPUSCULAR VOLUME 81 fL (79-100); MONO # 0.6 x10^3/uL (0.0-1.1); MONO % 8 % (0-9); NEUT % 38 % (31-73); PLATELET COUNT 200 x10^3/uL (140-400); RED BLOOD COUNT 4.29 x10^6/uL (3.50-5.40); WHITE BLOOD COUNT 7.7 x10^3/uL (4.0-11.0)
[2018-05-16 23:18] LABS: CREATININE 0.6 mg/dL (0.6-1.0); GFR 106.7; POTASSIUM 3.5 mmol/L (3.5-5.1)
--- NOTE | 2018-05-16 23:53 | RAD ---
Examination: Ultrasound pelvis HISTORY: History of vaginal bleeding for 14 days COMPARISON: 02/17/2018 FINDINGS: The uterus measures 10.9 x 5.8 cm. Endometrium measures 3.7 mm in thickness. Multiple nabothian cysts identified in the cervix. The myometrium of the uterus appears heterogenous. The right ovary measures 4.1 x 4.6 x 3.5 cm. The left ovary measures 2.7 x 2 0.6 to 1.9 cm. Blood flow identified in the right and left ovaries. There is a 3.3 cm cyst identified in the right ovary. IMPRESSION: 1. 3.3 cm cyst identified in the right ovary. 2. Heterogeneous appearing myometrium in the uterus, nonspecific, fibroid uterus is not excluded Electronically signed by: Ponce Barillas MD (05/16/2018 11:48 PM) [facility]
--- NOTE | 2018-05-17 00:09 | PHYS DOC ---
Past Medical History Past Medical History: Depression Additional Past Medical Histor: decreased use of left arm as baseline,VERTIGO, CHRONIC ABD PAIN,PUD? Past Surgical History: Additional Past Surgical Histo: BACK SX Alcohol Use: None Drug Use: None Adult General Chief Complaint Chief Complaint: PELVIC PAIN HPI HPI Patient is a 47 year old female who presents to the emergency room with complaints of lower abdominal pain described as cramping for the last 2 weeks with vaginal bleeding for the last 2 weeks. Patient denies any vomiting, or diarrhea, she states that she has been using 5 pads a day. She denies any urinary frequency, dysuria, fever, shortness of breath, cough, or chest pain. Patient also denies any back pain. Family at the bedside is translating for the patient, currently she complains that the pain is a 9 out of 10 on the pain scale she describes the pain as cramping. She takes methylprogesterone that was prescribed by her CRYPTOLOGICAL TECHNICIAN for her menstrual period. Review of Systems Review of Systems Constitutional: Denies fever or chills [] Eyes: Denies redness, or eye pain [] HENT: Denies nasal congestion or sore throat [] Respiratory: Denies cough or shortness of breath [] Cardiovascular: No additional information not addressed in HPI [] GI: Denies nausea, vomiting, or diarrhea [] : Denies dysuria or hematuria; see HPI [] Musculoskeletal: Denies back pain Integument: Denies rash or skin lesions [] Neurologic: Denies headache, focal weakness or sensory changes [] Complete systems were reviewed and found to be within normal limits, except as documented in this note. Current Medications Current Medications Current Medications Medications (Trade) Dose Ordered Sig/[facility] Start Time Stop Time Status Last Admin Dose Admin Morphine Sulfate (Morphine Sulfate) 4 mg 1X ONCE 05/16/18 23:00 05/16/18 23:01 DC 05/16/18 23:17 4 MG Ondansetron HCl (Zofran) 4 mg 1X ONCE 05/16/18 23:00 05/16/18 23:01 DC 05/16/18 23:17 4 MG Sodium Chloride 1,000 ml @ 1,000 mls/hr 1X ONCE 05/16/18 23:00 05/16/18 23:59 DC 05/16/18 23:17 1,000 MLS/HR Allergies Allergies Allergies Coded Allergies Type Severity Reaction Last Updated Verified No Known Drug Allergies 06/09/16 No Physical Exam Physical Exam Constitutional: Well developed, well nourished, no acute distress, non-toxic appearance. [] HENT: Normocephalic, atraumatic, bilateral external ears normal, nose normal. [] Eyes: conjunctiva normal, no discharge. [] Neck: Normal range of motion no stridor. [] Pelvic Exam: Lean Coach present [place] RN Abdomen: Nontender External Genitalia: Normal Skin Speculum: Normal vaginal mucosa, dark red blood present in vaginal vault, scant amount of bloody cervical discharge Bimanual: No adnexal masses, R adnexal tenderness, No CMT Skin: Warm, dry, no erythema, no rash. [] Extremities: No cyanosis, ROM intact, no edema. [] Neurologic: Alert and oriented X 3, normal motor function, normal sensory function, no focal deficits noted. [] Psychologic: Affect normal, judgement normal, mood normal. [] Current Patient Data Vital Signs Vital Signs Date Time Temp Pulse Resp B/P (MAP) Pulse Ox O2 Delivery O2 Flow Rate FiO2 05/16/18 22:08 98.2 54 18 127/86 (100) 99 Room Air 98.2 Lab Values Laboratory Tests Test 05/16/18 22:10 05/16/18 22:17 05/16/18 22:20 Urine Collection Type Unknown Urine Color Yellow Urine Clarity Clear Urine pH 7.0 Urine Specific [place] 1.015 Urine Protein Negative mg/dL (NEG-TRACE) Urine Glucose (UA) Negative mg/dL (NEG) Urine Ketones (Stick) Negative mg/dL (NEG) Urine Blood Large (NEG) Urine Nitrite Negative (NEG) Urine Bilirubin Negative (NEG) Urine Urobilinogen Dipstick 0.2 mg/dL (0.2 mg/dL) Urine Leukocyte Esterase Small (NEG) Urine RBC Tntc /HPF (0-2) Urine WBC 5-10 /HPF (0-4) Urine Squamous Epithelial Cells Many /LPF Urine Bacteria Few /HPF (0-FEW) POC Urine HCG, Qualitative Hcg negative (Negative) White Blood Count 7.7 x10^3/uL (4.0-11.0) Red Blood Count 4.29 x10^6/uL (3.50-5.40) Hemoglobin 11.6 g/dL (12.0-15.5) L Hematocrit 34.8 % (36.0-47.0) L Mean Corpuscular Volume 81 fL (79-100) Mean Corpuscular Hemoglobin 27 pg (25-35) Mean Corpuscular Hemoglobin Concent 33 g/dL (31-37) Red Cell Distribution Width 14.0 % (11.5-14.5) Platelet Count 200 x10^3/uL (140-400) Neutrophils (%) (Auto) 38 % (31-73) Lymphocytes (%) (Auto) 49 % (24-48) H Monocytes (%) (Auto) 8 % (0-9) Eosinophils (%) (Auto) 4 % (0-3) H Basophils (%) (Auto) 1 % (0-3) Neutrophils # (Auto) 3.0 x10^3uL (1.8-7.7) Lymphocytes # (Auto) 3.8 x10^3/uL (1.0-4.8) Monocytes # (Auto) 0.6 x10^3/uL (0.0-1.1) Eosinophils # (Auto) 0.3 x10^3/uL (0.0-0.7) Basophils # (Auto) 0.0 x10^3/uL (0.0-0.2) Sodium Level 141 mmol/L (136-145) Potassium Level 3.5 mmol/L (3.5-5.1) Chloride Level 106 mmol/L (98-107) Carbon Dioxide Level 24 mmol/L (21-32) Anion Gap 11 (6-14) Blood Urea Nitrogen 9 mg/dL (7-20) Creatinine 0.6 mg/dL (0.6-1.0) Estimated GFR (Cockcroft-Gault) 106.7 Glucose Level 103 mg/dL (70-99) H Calcium Level 9.0 mg/dL (8.5-10.1) Laboratory Tests 05/16/18 22:20 Laboratory Tests 05/16/18 22:20 EKG EKG [] Radiology/Procedures Radiology/Procedures PROCEDURE: PELVIS W/TV Examination: Ultrasound pelvis HISTORY: History of vaginal bleeding for 14 days COMPARISON: 02/17/2018 FINDINGS: The uterus measures 10.9 x 5.8 cm. Endometrium measures 3.7 mm in thickness. Multiple nabothian cysts identified in the cervix. The myometrium of the uterus appears heterogenous. The right ovary measures 4.1 x 4.6 x 3.5 cm. The left ovary measures 2.7 x 2 0.6 to 1.9 cm. Blood flow identified in the right and left ovaries. There is a 3.3 cm cyst identified in the right ovary. IMPRESSION: 1. 3.3 cm cyst identified in the right ovary. 2. Heterogeneous appearing myometrium in the uterus, nonspecific, fibroid uterus is not excluded [] Course & Med Decision Making Course & Med Decision Making Pertinent Labs and Imaging studies reviewed. (See chart for details) Dx: dysfunctional uterine bleeding, UTI, R ovarian cyst. UA concerning for UTI, macrobid prescribed. Discussed U/S report with pt. Pt encouraged to follow up with OBgyn next week as planned, return to ER if symptoms worsen. Tylenol or ibuprofen as needed for pain. Patient verbalized an understanding of home care, medications, follow-up, and return to ED instructions and was in agreement with the plan of care. [] Dragon Disclaimer Dragon Disclaimer This electronic medical record was generated, in whole or in part, using a voice recognition dictation system. Departure Departure Impression: Primary Impression: Dysfunctional uterine bleeding Additional Impressions: Urinary tract infection Ovarian cyst Disposition: HOME, SELF-CARE Condition: STABLE Referrals: JACOB GOETZ MD (PCP) Patient Instructions: Ovarian Cyst, [id number], Urinary Tract Infection, Easy -to-Read, Uterine Bleeding, Dysfunctional, [id number] Additional Instructions: Tylenol or ibuprofen as needed for pain. Increase clear fluids, avoid bladder irritants such as spicy foods, carbonation, and caffeine. Fill the prescription and use as directed. Follow up with your OBgyn next week as planned. Return to the ER if symptoms worsen. Scripts Nitrofurantoin Monohyd/M-Cryst (MACROBID 100 MG CAPSULE) 100 Mg Capsule 1 CAP PO BID, #14 CAP 0 Refills Prov: FOSTER MEJIA APRN 05/17/18 Problem Qualifiers Additional Impressions: Urinary tract infection Urinary tract infection type: site unspecified Hematuria presence: with hematuria Qualified Codes: N39.0 - Urinary tract infection, site not specified ; R31.9 - Hematuria, unspecified Ovarian cyst Laterality: right Qualified Codes: N83.201 - Unspecified ovarian cyst, right side FOSTER MEJIA CUTTER OPERATOR TILE May 17, 2018 00:09
[2018-05-17 00:16] LABS: BILIRUBIN,URINE NEGATIVE (NEG); CLARITY,URINE CLEAR; COLOR,URINE YELLOW; NITRITE,URINE NEGATIVE (NEG); PROTEIN,URINE NEGATIVE (NEG-TRACE); UROBILINOGEN,URINE 0.2 mg/dL (0.2 mg/dL)
[2018-05-17 00:22] LABS: BACTERIA,URINE FEW /HPF (0-FEW); RBC,URINE TNTC /HPF (0-2); SQUAMOUS EPITHELIAL CELL,UR MANY /LPF
[2018-05-17] MEDS ORDERED: NITR100C62 PO (01:01)
== END 2018-05-17 01:07 | disposition home or self-care (01) ==
LOC: ER 21:58
DX: N93.8 Other specified abnormal uterine and vaginal bleeding (principal); N39.0 Urinary tract infection, site not specified; R31.9 Hematuria, unspecified; N83.201 Unspecified ovarian cyst, right side; Z98.890 Other specified postprocedural states
CPT/HCPCS: 36415; 76830; 76856; 80048; 81001; 81025; 85025; 87086; 96374; 96375; 99284; J2270; J2405; J7030; 96361

== ENCOUNTER 2018-07-24 19:28 | Emergency (ER) | payer BC ==
[~2018-07-24] VITALS: Ht 152.4 cm; Wt 72.6 kg
[~2018-07-24 19:28] MED LIST changes: -ALEN70TA5 PO; +ALEN70TA6 PO; +NITR100C62 PO
[2018-07-24] MEDS ORDERED: DEXAMETHASONE 4 MG TABLET PO ONE (20:00)
[2018-07-24 20:24] LABS: INFLUENZA A PATIENT POSITIVE (NEGATIVE); INFLUENZA B PATIENT NEGATIVE (NEGATIVE)
--- NOTE | 2018-07-24 20:27 | PHYS DOC ---
Past Medical History Past Medical History: Arthritis, Depression Additional Past Medical Histor: decreased use of left arm as baseline,VERTIGO, CHRONIC ABD PAIN,PUD? Past Surgical History: Additional Past Surgical Histo: BACK SX Alcohol Use: None Drug Use: None Adult General Chief Complaint Chief Complaint: COUGH HPI HPI Patient is a 47 year old female who presents with a fever, chills, cough productive of yellow sputum with bloody streaks, diffuse body aches, and generalized weakness for the past few days. Tmax of 102.4 at home. Patient reports developing sharp, constant chest pain around six o'clock this morning. Patient is having midsternal chest pain upon ED arrival which she currently rates to be a 9/10. Patient states that the pain is worse with taking a deep breath. Patient denies any alleviating factors and radiation of the pain. Patient states that she took Tylenol at home around four o'clock this afternoon without relief. Patient also reports three episodes of hematemesis today and states that the blood was bright red. Patient reports having a similar episode about six years ago for which she was evaluated but does not remember the outcome. Patient did not receive the influenza vaccination this year. Patient's is sick with similar symptoms at home. Denies recent travel and recent antibiotic use. Patient's son is present at bedside who is translating. Review of Systems Review of Systems Constitutional: Reports fever and chills. Eyes: Denies change in visual acuity or eye pain. HENT: Reports sore throat and nasal congestion. Respiratory: Reports cough and shortness of breath. Cardiovascular: Denies palpitations. Reports chest pain. GI: Denies abdominal pain or diarrhea. : Denies dysuria or hematuria. Musculoskeletal: Denies back pain or joint pain. Integument: Denies rash or skin lesions. Neurologic: Denies focal weakness or sensory changes. Complete systems were reviewed and found to be within normal limits, except as documented in this note. Current Medications Current Medications Current Medications Medications (Trade) Dose Ordered Sig/[facility] Start Time Stop Time Status Last Admin Dose Admin Dexamethasone (Decadron) 10 mg 1X ONCE 07/24/18 20:00 07/24/18 20:01 DC 07/24/18 22:04 10 MG Info (CONTRAST GIVEN -- Rx MONITORING) 1 each PRN DAILY PRN 07/24/18 21:00 07/25/18 00:11 DC Iohexol (Omnipaque 350 Mg/ml) 90 ml 1X ONCE 07/24/18 21:00 07/24/18 21:01 DC 07/24/18 21:00 90 ML Ketorolac Tromethamine (Toradol 15mg Vial) 15 mg 1X ONCE 07/25/18 00:00 07/25/18 00:01 DC 07/24/18 23:56 15 MG Oseltamivir Phosphate (Tamiflu) 75 mg 1X ONCE 07/25/18 00:00 07/25/18 00:01 DC 07/24/18 23:55 75 MG Sodium Chloride 1,000 ml @ 1,000 mls/hr 1X ONCE 07/24/18 20:30 07/24/18 21:29 DC 07/24/18 22:04 1,000 MLS/HR Allergies Allergies Allergies Coded Allergies Type Severity Reaction Last Updated Verified No Known Drug Allergies 06/09/16 No Physical Exam Physical Exam Constitutional: Well developed, well nourished, no acute distress. HENT: Normocephalic, atraumatic,oropharynx moist. Mild pharyngeal erythema without exudate. Eyes: PERRL, conjunctiva without erythema, no discharge. Neck: Normal range of motion, no tenderness, supple. Cardiovascular:Heart rate regular rhythm, no murmur. Lungs & Thorax: Bilateral breath sounds clear to auscultation. No wheezing or rhonchi. Abdomen: Soft, no tenderness on palpation. Skin: Warm, dry, no rash. Back: No midline tenderness, no CVA tenderness. Extremities: No tenderness, ROM intact, no lower extremity edema. Neurologic: Alert and oriented X 3, normal motor function, normal sensory function, no focal deficits noted. Psychologic: Affect normal. Speech normal. Current Patient Data Vital Signs Vital Signs Date Time Temp Pulse Resp B/P (MAP) Pulse Ox O2 Delivery O2 Flow Rate FiO2 07/25/18 00:00 104 153/67 (95) Room Air 07/24/18 21:00 99.8 22 99.8 07/24/18 19:48 96 Lab Values Laboratory Tests Test 07/24/18 19:45 07/24/18 20:55 Influenza Type A Antigen Positive (NEGATIVE) Influenza Type B Antigen Negative (NEGATIVE) White Blood Count 8.6 x10^3/uL (4.0-11.0) Red Blood Count 4.61 x10^6/uL (3.50-5.40) Hemoglobin 11.7 g/dL (12.0-15.5) L Hematocrit 35.2 % (36.0-47.0) L Mean Corpuscular Volume 77 fL (79-100) L Mean Corpuscular Hemoglobin 25 pg (25-35) Mean Corpuscular Hemoglobin Concent 33 g/dL (31-37) Red Cell Distribution Width 14.5 % (11.5-14.5) Platelet Count 126 x10^3/uL (140-400) L Neutrophils (%) (Auto) 78 % (31-73) H Lymphocytes (%) (Auto) 11 % (24-48) L Monocytes (%) (Auto) 10 % (0-9) H Eosinophils (%) (Auto) 1 % (0-3) Basophils (%) (Auto) 0 % (0-3) Neutrophils # (Auto) 6.7 x10^3uL (1.8-7.7) Lymphocytes # (Auto) 0.9 x10^3/uL (1.0-4.8) L Monocytes # (Auto) 0.8 x10^3/uL (0.0-1.1) Eosinophils # (Auto) 0.1 x10^3/uL (0.0-0.7) Basophils # (Auto) 0.0 x10^3/uL (0.0-0.2) Prothrombin Time 13.7 SEC (11.7-14.0) Prothrombin Time INR 1.1 (0.8-1.1) Sodium Level 138 mmol/L (136-145) Potassium Level 3.6 mmol/L (3.5-5.1) Chloride Level 99 mmol/L (98-107) Carbon Dioxide Level 23 mmol/L (21-32) Anion Gap 16 (6-14) H Blood Urea Nitrogen 6 mg/dL (7-20) L Creatinine 0.9 mg/dL (0.6-1.0) Estimated GFR (Cockcroft-Gault) 66.8 BUN/Creatinine Ratio 7 (6-20) Glucose Level 113 mg/dL (70-99) H Calcium Level 8.7 mg/dL (8.5-10.1) Magnesium Level 1.7 mg/dL (1.8-2.4) L Total Bilirubin 0.9 mg/dL (0.2-1.0) Aspartate Amino Transferase (AST) 38 U/L (15-37) H Alanine Aminotransferase (ALT) 47 U/L (14-59) Alkaline Phosphatase 73 U/L (46-116) Creatine Kinase 109 U/L (26-192) Creatine Kinase MB (Mass) < 0.5 ng/mL (0.0-3.6) Creatine Kinase MB Relative Index % (0-4) Troponin I Quantitative < 0.017 ng/mL (0.000-0.055) [id number]-Type Natriuretic Peptide 93 pg/mL (0-124) Total Protein 8.1 g/dL (6.4-8.2) Albumin 4.3 g/dL (3.4-5.0) Albumin/Globulin Ratio 1.1 (1.0-1.7) Lipase 97 U/L (73-393) Laboratory Tests 07/24/18 20:55 Laboratory Tests 07/24/18 20:55 EKG EKG @2110 Sinus tachycardia at 105bpm, NO ST elevation Radiology/Procedures Radiology/Procedures PROCEDURE: CT ANGIOGRAPHY CHEST PQRS Compliance statement: One or more of the following individualized dose reduction techniques were utilized for this examination: 1. Automated exposure control. 2. Adjustment of the mA and/or kV according to patient size. 3. Use of iterative reconstruction technique. Indication:Chest pain, hemoptysis, flu, [id number] 90ml, no priors TECHNIQUE: CT angiogram of the chest with IV contrast with multiplanar MIP reformats. COMPARISON:None FINDINGS: Suboptimal PE study due to contrast bolus timing. No central filling defects in the pulmonary arteries. Evaluation of segmental and subsegmental pulmonary arteries is limited. Heart is normal in size. No pericardial or pleural effusion. Clear neck base. No enlarged axillary, mediastinal or hilar adenopathy. Patchy opacities seen in the lingula. Otherwise, lungs are clear. Visualized sections through the liver, spleen, gallbladder, pancreas, adrenals and kidneys within normal limits. No suspicious bony lesion. IMPRESSION: 1. Suboptimal PE study due to contrast bolus timing. No central PE. Evaluation of segmental and subsegmental pulmonary arteries is limited. 2. Small amount of patchy opacity in the lingula may be secondary to atelectasis or pneumonia. Electronically signed by: Washington Mejía DO (07/24/2018 9:53 PM) [facility] Course & Med Decision Making Course & Med Decision Making Pertinent Labs and Imaging studies reviewed. (See chart for details) Patient is a 47 year old female who presents with chest pain, cough productive of yellow/bloody sputum, shortness of breath, fever, and generalized weakness. Due to history of possible pulmonary embolism and hemoptysis, CT angiography ordered. Patient noted to be positive for Influenza A. Dragon Disclaimer Dragon Disclaimer This electronic medical record was generated, in whole or in part, using a voice recognition dictation system. Departure Departure Impression: Primary Impression: Influenza A Additional Impression: Bronchitis Disposition: 01 HOME, SELF-CARE Condition: STABLE Referrals: JACOB GOETZ MD (PCP) Patient Instructions: Influenza, Adult, [id number] Scripts Albuterol Sulfate (Proair Hfa) 8.5 Gm Hfa.aer.ad 1 PUFF INH PRN Q6HRS PRN for SHORTNESS OF BREATH, #1 INHALER Prov: LUIS RENTERIA DO 07/24/18 Azithromycin (ZITHROMAX) 250 Mg Tablet 1 PKG PO UD for bronchitis, #6 TAB Take 2 tablets on day 1 and then 1 tablet each day for the next 4 days as directed Prov: LUIS RENTERIA DO 07/24/18 Prednisone (PREDNISONE) 20 Mg Tablet 2 TAB PO DAILY, #8 TAB Prov: LUIS RENTERIA DO 07/24/18 Oseltamivir Phosphate (TAMIFLU) 75 Mg Capsule 1 CAP PO BID for influenza, #10 CAP Prov: LUIS RENTERIA DO 07/24/18 Problem Qualifiers LUIS RENTERIA DO Jul 24, 2018 20:27
[2018-07-24] MEDS ORDERED: IV NORMAL SALINE 1000ML BAG 1,000 ML IV ONE (20:30)
[2018-07-24] MEDS ORDERED: IOHEXOL 350 MG/ML 100 ML VIAL. IV ONE (21:00)
[2018-07-24] MEDS ORDERED: CONTRAST GIVEN. MC PRN (21:00)
[2018-07-24 21:05] LABS: BASO % 0 % (0-3); EOS # 0.1 x10^3/uL (0.0-0.7); EOS % 1 % (0-3); HEMATOCRIT 35.2 % (36.0-47.0); HEMOGLOBIN 11.7 g/dL (12.0-15.5); LYMPH # 0.9 x10^3/uL (1.0-4.8); LYMPH % 11 % (24-48); MEAN CORPUSCULAR HEMOGLOBIN 25 pg (25-35); MEAN CORPUSCULAR HGB CONC 33 g/dL (31-37); MEAN CORPUSCULAR VOLUME 77 fL (79-100); MONO # 0.8 x10^3/uL (0.0-1.1); MONO % 10 % (0-9); NEUT # 6.7 x10^3uL (1.8-7.7); NEUT % 78 % (31-73); PLATELET COUNT 126 x10^3/uL (140-400); RED BLOOD COUNT 4.61 x10^6/uL (3.50-5.40); RED CELL DISTRIBUTION WIDTH 14.5 % (11.5-14.5); WHITE BLOOD COUNT 8.6 x10^3/uL (4.0-11.0)
[2018-07-24 21:12] LABS: PROTHROMBIN TIME PATIENT 13.7 SEC (11.7-14.0)
[2018-07-24 21:21] LABS: CALCIUM 8.7 mg/dL (8.5-10.1); CREATININE 0.9 mg/dL (0.6-1.0); GFR 66.8; POTASSIUM 3.6 mmol/L (3.5-5.1)
[2018-07-24 21:26] LABS: ALBUMIN 4.3 g/dL (3.4-5.0); ALBUMIN/GLOBULIN RATIO 1.1 (1.0-1.7); MAGNESIUM 1.7 mg/dL (1.8-2.4); TOTAL BILIRUBIN 0.9 mg/dL (0.2-1.0); TOTAL PROTEIN 8.1 g/dL (6.4-8.2)
[2018-07-24 21:38] LABS: CREATINE KINASE 109 U/L (26-192)
--- NOTE | 2018-07-24 21:56 | RAD ---
PQRS Compliance statement: One or more of the following individualized dose reduction techniques were utilized for this examination: 1. Automated exposure control. 2. Adjustment of the mA and/or kV according to patient size. 3. Use of iterative reconstruction technique. Indication:Chest pain, hemoptysis, flu, [id number] 90ml, no priors TECHNIQUE: CT angiogram of the chest with IV contrast with multiplanar MIP reformats. COMPARISON:None FINDINGS: Suboptimal PE study due to contrast bolus timing. No central filling defects in the pulmonary arteries. Evaluation of segmental and subsegmental pulmonary arteries is limited. Heart is normal in size. No pericardial or pleural effusion. Clear neck base. No enlarged axillary, mediastinal or hilar adenopathy. Patchy opacities seen in the lingula. Otherwise, lungs are clear. Visualized sections through the liver, spleen, gallbladder, pancreas, adrenals and kidneys within normal limits. No suspicious bony lesion. IMPRESSION: 1. Suboptimal PE study due to contrast bolus timing. No central PE. Evaluation of segmental and subsegmental pulmonary arteries is limited. 2. Small amount of patchy opacity in the lingula may be secondary to atelectasis or pneumonia. Electronically signed by: Washington Mejía DO (07/24/2018 9:53 PM) [facility]
[2018-07-24] MEDS ORDERED: AZIT250T PO (23:31)
[2018-07-24] MEDS ORDERED: ALBU2.5V8 INH (23:31)
[2018-07-24] MEDS ORDERED: OSEL75CA PO (23:31)
[2018-07-24] MEDS ORDERED: PRED20TA PO (23:31)
[2018-07-25] VITALS: BP 153/67
[2018-07-25] MEDS ORDERED: OSELTAMIVIR 75 MG CAPSULE PO ONE
[2018-07-25] MEDS ORDERED: KETOROLAC 15 MG/ML VIAL. IV ONE
--- NOTE | 2018-07-25 07:54 | EKG ---
[facility] [address] [place] [address] Test Date: 2018-07-24 Test Time: 21:10:22 Pat Name: LUIS MANUEL BATES Department: Room: Gender: F Fusing Line Inspector: : 1970 Requested By: LUIS RENTERIA Order Number: [id number] Reading MD: Adilson Escalante MD Measurements Intervals [place] Rate: 105 P: 31 MI: 158 QRS: 44 QRSD: 82 T: 15 QT: 334 QTc: 445 Interpretive Statements SINUS TACHYCARDIA Electronically Signed On 07-26-2018 9:33:31 CDT by Adilson Escalante MD
== END 2018-07-25 00:08 | disposition home or self-care (01) ==
LOC: ER 19:28
DX: J10.1 Influenza due to other identified influenza virus with other respiratory manifestations (principal); J40 Bronchitis, not specified as acute or chronic; K92.0 Hematemesis
CPT/HCPCS: 36415; 71275; 80053; 82553; 83690; 83735; 83880; 84484; 85025; 85610; 87804; 93005; 96361; 96374; 99284; J1885; J7030; J8540; Q9967

== ENCOUNTER 2019-02-08 20:19 | Emergency (ER) | payer BC ==
[~2019-02-08] VITALS: Ht 152.4 cm; Wt 74.8 kg
[~2019-02-08 20:19] MED LIST changes: +ALBU2.5V8 INH; +AZIT250T PO; +KETO10TA PO; +OMEP40CA45 PO; -OMEP40CA5 PO; +OSEL75CA PO; +PRED20TA PO
[2019-02-08 20:42] LABS: BILIRUBIN,URINE NEGATIVE (NEG); CLARITY,URINE CLEAR; COLOR,URINE YELLOW; NITRITE,URINE NEGATIVE (NEG); PROTEIN,URINE NEGATIVE (NEG-TRACE)
[2019-02-08 20:50] VITALS: BP 134/77
[2019-02-08 20:52] LABS: SQUAMOUS EPITHELIAL CELL,UR MOD /LPF
[2019-02-08 20:53] LABS: BACTERIA,URINE 0 /HPF (0-FEW); RBC,URINE >40 /HPF (0-2); WBC,URINE OCC /HPF (0-4)
--- NOTE | 2019-02-08 21:28 | PHYS DOC ---
Past Medical History Past Medical History: Other Additional Past Medical Histor: decreased use of left arm as baseline,VERTIGO,CHRONIC ABD PAIN,PUD? Past Surgical History: Other Additional Past Surgical Histo: BACK SURGERY Alcohol Use: None Drug Use: None Adult General Chief Complaint Chief Complaint: ABDOMINAL PAIN HPI HPI 48-year-old female presents to the emergency department with complaints of abdominal pain, primarily left sided described as sharp. She describes nausea no vomiting. Last, was fussy 15 days ago. No fevers per the patient. Her sons interpreting for her at the bedside. Nothing makes her pain worse, nothing makes her pain better. She's tried [id number] medications without relief. Review of Systems Review of Systems Constitutional: Denies fever or chills [] Eyes: Denies change in visual acuity, redness, or eye pain [] HENT: Denies nasal congestion or sore throat [] Respiratory: Denies cough or shortness of breath [] Cardiovascular: No additional information not addressed in HPI [] GI: Positive abdominal pain, positive nausea, no vomiting bloody stools or diarrhea. : Denies dysuria or hematuria [] Musculoskeletal: Denies back pain or joint pain [] Integument: Denies rash or skin lesions [] Neurologic: Denies headache, focal weakness or sensory changes [] All other systems were reviewed and found to be within normal limits, except as documented in this note. Current Medications Current Medications Current Medications Medications (Trade) Dose Ordered Sig/[facility] Start Time Stop Time Status Last Admin Dose Admin Dicyclomine HCl (Bentyl) 10 mg 1X ONCE 02/09/19 01:15 02/09/19 01:16 Magnesium Citrate (Citroma) 296 ml 1X ONCE 02/08/19 23:55 02/08/19 23:56 DC 02/08/19 23:51 296 ML Ondansetron HCl (Zofran) 4 mg 1X ONCE 02/09/19 00:45 02/09/19 00:46 DC Allergies Allergies Allergies Coded Allergies Type Severity Reaction Last Updated Verified No Known Drug Allergies 06/09/16 No Physical Exam Physical Exam Constitutional: Well developed, well nourished, no acute distress, non-toxic appearance. [] HENT: Normocephalic, atraumatic, bilateral external ears normal, oropharynx moist, no oral exudates, nose normal. [] Eyes: PERRLA, EOMI, conjunctiva normal, no discharge. [] Neck: Normal range of motion, no tenderness, supple, no stridor. [] Cardiovascular:Heart rate regular rhythm, no murmur [] Lungs & Thorax: Bilateral breath sounds clear to auscultation [] Abdomen: Bowel sounds normal, soft, no tenderness, no masses, no pulsatile masses. [] Skin: Warm, dry, no erythema, no rash. [] Back: No tenderness, no CVA tenderness. [] Extremities: No tenderness, no cyanosis, no clubbing, ROM intact, no edema. [] Neurologic: Alert and oriented X 3, normal motor function, normal sensory function, no focal deficits noted. [] Psychologic: Affect normal, judgement normal, mood normal. [] Current Patient Data Vital Signs Vital Signs Date Time Temp Pulse Resp B/P (MAP) Pulse Ox O2 Delivery O2 Flow Rate FiO2 02/08/19 20:50 97.3 56 20 134/77 (96) 98 Room Air 97.3 Lab Values Laboratory Tests Test 02/08/19 20:25 02/08/19 21:30 Urine Collection Type Unknown Urine Color Yellow Urine Clarity Clear Urine pH 6.0 Urine Specific [place] 1.025 Urine Protein Negative mg/dL (NEG-TRACE) Urine Glucose (UA) Negative mg/dL (NEG) Urine Ketones (Stick) Negative mg/dL (NEG) Urine Blood Large (NEG) Urine Nitrite Negative (NEG) Urine Bilirubin Negative (NEG) Urine Urobilinogen Dipstick 1.0 mg/dL (0.2 mg/dL) Urine Leukocyte Esterase Negative (NEG) Urine RBC >40 /HPF (0-2) Urine WBC Occ /HPF (0-4) Urine Squamous Epithelial Cells Mod /LPF Urine Bacteria 0 /HPF (0-FEW) Urine Mucus Marked /LPF White Blood Count 8.2 x10^3/uL (4.0-11.0) Red Blood Count 4.38 x10^6/uL (3.50-5.40) Hemoglobin 11.3 g/dL (12.0-15.5) L Hematocrit 33.2 % (36.0-47.0) L Mean Corpuscular Volume 76 fL (79-100) L Mean Corpuscular Hemoglobin 26 pg (25-35) Mean Corpuscular Hemoglobin Concent 34 g/dL (31-37) Red Cell Distribution Width 15.5 % (11.5-14.5) H Platelet Count 194 x10^3/uL (140-400) Neutrophils (%) (Auto) 49 % (31-73) Lymphocytes (%) (Auto) 40 % (24-48) Monocytes (%) (Auto) 7 % (0-9) Eosinophils (%) (Auto) 3 % (0-3) Basophils (%) (Auto) 1 % (0-3) Neutrophils # (Auto) 4.0 x10^3/uL (1.8-7.7) Lymphocytes # (Auto) 3.3 x10^3/uL (1.0-4.8) Monocytes # (Auto) 0.6 x10^3/uL (0.0-1.1) Eosinophils # (Auto) 0.3 x10^3/uL (0.0-0.7) Basophils # (Auto) 0.1 x10^3/uL (0.0-0.2) Sodium Level 139 mmol/L (136-145) Potassium Level 3.4 mmol/L (3.5-5.1) L Chloride Level 106 mmol/L (98-107) Carbon Dioxide Level 26 mmol/L (21-32) Anion Gap 7 (6-14) Blood Urea Nitrogen 9 mg/dL (7-20) Creatinine 0.7 mg/dL (0.6-1.0) Estimated GFR (Cockcroft-Gault) 88.9 BUN/Creatinine Ratio 13 (6-20) Glucose Level 117 mg/dL (70-99) H Calcium Level 8.4 mg/dL (8.5-10.1) L Total Bilirubin 0.5 mg/dL (0.2-1.0) Aspartate Amino Transferase (AST) 24 U/L (15-37) Alanine Aminotransferase (ALT) 32 U/L (14-59) Alkaline Phosphatase 50 U/L (46-116) Total Protein 7.3 g/dL (6.4-8.2) Albumin 3.7 g/dL (3.4-5.0) Albumin/Globulin Ratio 1.0 (1.0-1.7) Laboratory Tests 02/08/19 21:30 Laboratory Tests 02/08/19 21:30 EKG EKG [] Radiology/Procedures Radiology/Procedures KUB wet reading reveals evidence of constipation, no evidence of obstructive process appreciated.[] Course & Med Decision Making Course & Med Decision Making Pertinent Labs and Imaging studies reviewed. (See chart for details) []48-year-old female presents to the emergency department with complaints of abdominal pain, primarily left sided described as sharp. She describes nausea no vomiting. Last, was fussy 15 days ago. No fevers per the patient. Her sons interpreting for her at the bedside. Nothing makes her pain worse, nothing makes her pain better. She's tried [id number]-rbfwtda medications without relief. Labs reviewed and unremarkable. Discussed findings of x-ray with patient and family at bedside. We'll plan for mag citrate by mouth, milk and molasses enema per rectum. Patient has received 3 enemas with relief Plan for oral medications upon discharge including miralax and glycerin supp Discussed discharge plan with patient and family at bedside. Dragon Disclaimer Dragon Disclaimer This electronic medical record was generated, in whole or in part, using a voice recognition dictation system. Departure Departure Impression: Primary Impression: Constipation Disposition: 01 HOME, SELF-CARE Condition: STABLE Referrals: JACOB GOETZ MD (PCP) Patient Instructions: Constipation, Adult, [id number] Additional Instructions: Recommend follow up with PCP 3 - 5 days Return to the ER with worsening symptoms, intractable pain, fever, altered mental status Tylenol/Motrin as needed for pain Miralax BID as written Glycerin suppository as written Scripts Ondansetron Hcl (ZOFRAN) 4 Mg Tablet 1 TAB PO PRN Q6-8HRS for nausea, #12 TAB Prov: JADYN ISRAEL MD 02/09/19 Dicyclomine Hcl (DICYCLOMINE HCL) 10 Mg Capsule 1 CAP PO TID, #90 CAP 11 Refills Prov: JADYN ISRAEL MD 02/09/19 Polyethylene Glycol 3350 (MIRALAX) 17 Gm Powd.pack 1 PACKET PO BID for constipation for 30 Days, #60 PACKET 0 Refills dissolve in water Prov: JADYN ISRAEL MD 02/09/19 Glycerin (ADULT GLYCERIN) 1 Each Supp.rect 1 EACH RC DAILY for 3 Days, #3 SUPP.RECT Prov: JADYN ISRAEL MD 02/09/19 Problem Qualifiers Primary Impression: Constipation Constipation type: unspecified constipation type Qualified Codes: K59.00 - Constipation, unspecified JADYN ISRAEL MD Feb 08, 2019 21:28
[2019-02-08] MEDS ORDERED: ONDANSETRON PF 4 MG/2 ML VIAL. IV ONE (21:30)
[2019-02-08 21:40] LABS: BASO # 0.1 x10^3/uL (0.0-0.2); BASO % 1 % (0-3); EOS # 0.3 x10^3/uL (0.0-0.7); EOS % 3 % (0-3); HEMATOCRIT 33.2 % (36.0-47.0); HEMOGLOBIN 11.3 g/dL (12.0-15.5); LYMPH # 3.3 x10^3/uL (1.0-4.8); LYMPH % 40 % (24-48); MEAN CORPUSCULAR HEMOGLOBIN 26 pg (25-35); MEAN CORPUSCULAR HGB CONC 34 g/dL (31-37); MEAN CORPUSCULAR VOLUME 76 fL (79-100); MONO # 0.6 x10^3/uL (0.0-1.1); MONO % 7 % (0-9); NEUT % 49 % (31-73); PLATELET COUNT 194 x10^3/uL (140-400); RED BLOOD COUNT 4.38 x10^6/uL (3.50-5.40); RED CELL DISTRIBUTION WIDTH 15.5 % (11.5-14.5); WHITE BLOOD COUNT 8.2 x10^3/uL (4.0-11.0)
[2019-02-08 21:46] LABS: CALCIUM 8.4 mg/dL (8.5-10.1); CREATININE 0.7 mg/dL (0.6-1.0); GFR 88.9; POTASSIUM 3.4 mmol/L (3.5-5.1)
[2019-02-08 21:53] LABS: ALBUMIN 3.7 g/dL (3.4-5.0); TOTAL BILIRUBIN 0.5 mg/dL (0.2-1.0); TOTAL PROTEIN 7.3 g/dL (6.4-8.2)
[2019-02-08] MEDS ORDERED: MAGNESIUM CITRATE 296 ML SOLUTION. PO ONE (23:55)
[2019-02-09] MEDS ORDERED: ONDANSETRON PF 4 MG/2 ML VIAL. IVP ONE (00:45)
[2019-02-09] MEDS ORDERED: DICYCLOMINE 20 MG/2 ML AMPUL. IM ONE (01:15)
[2019-02-09] MEDS ORDERED: POLY17PO29 PO (01:18)
[2019-02-09] MEDS ORDERED: GLYC1SUP RC (01:18)
[2019-02-09] MEDS ORDERED: ONDA4TAB7 PO (01:19)
[2019-02-09] MEDS ORDERED: DICY10CA3 PO (01:19)
--- NOTE | 2019-02-09 05:49 | RAD ---
KUB: Reason for examination: Abdominal pain and constipation. There is no gross organomegaly. Psoas muscles are symmetric. The bowel gas pattern is nonspecific with some small and large intestinal air but no abnormal dilatation. There is a moderate amount of fecal material in the right colon. There are couple small calcifications in the left pelvis consistent with phleboliths. No acute bony abnormalities are seen. IMPRESSION: Nonspecific nonobstructive bowel gas pattern. Electronically signed by: Anaya Matthew MD (02/09/2019 5:46 AM) [facility]
== END 2019-02-09 01:31 | disposition home or self-care (01) ==
LOC: ER 20:19
DX: K59.00 Constipation, unspecified (principal); R11.0 Nausea; G89.29 Other chronic pain
CPT/HCPCS: 36415; 74018; 80053; 81001; 85025; 96372; 96374; 96376; 99285; J0500; J2405

== ENCOUNTER 2019-06-27 20:54 | Emergency (ER) | payer BC ==
[~2019-06-27] VITALS: Ht 152.4 cm; Wt 68.1 kg
[~2019-06-27 20:54] MED LIST changes: +DICY10CA3 PO; +GLYC1SUP RC; +MECL-75 PO; -MECL25TA3 PO; +POLY17PO29 PO
--- NOTE | 2019-06-27 21:19 | PHYS DOC ---
Past Medical History Past Medical History: Other Additional Past Medical Histor: decreased use of left arm as baseline,VERTIGO,CHRONIC ABD PAIN,PUD? Past Surgical History: Other Additional Past Surgical Histo: BACK SURGERY Smoking Status: Never Smoker Alcohol Use: None Drug Use: None Adult General Chief Complaint Chief Complaint: DIZZY/LIGHT HEADED HPI HPI Patient is a 48 year old female who presents to the ER secondary to complaint of a headache and some dizziness. Patient's family by her son who provides interpretation. Patient complains of left-sided head pain behind the eye rated 10/10 consistent with previous migraines. He has no neurologic symptoms. She also has some dizziness. No medications taken prior to arrival. Pain started earlier today Review of Systems Review of Systems All other ROS is negative unless otherwise stated in HPI Current Medications Current Medications Current Medications Medications (Trade) Dose Ordered Sig/[facility] Start Time Stop Time Status Last Admin Dose Admin Diphenhydramine HCl (Benadryl) 25 mg 1X ONCE 06/27/19 21:30 06/27/19 21:31 DC 06/27/19 21:34 25 MG Fentanyl Citrate (Fentanyl 2ml Vial) 50 mcg 1X ONCE 06/27/19 22:30 06/27/19 22:31 DC Ketorolac Tromethamine (Toradol 30mg Vial) 30 mg 1X ONCE 06/27/19 21:30 06/27/19 21:31 DC 06/27/19 21:33 30 MG Metoclopramide HCl (Reglan Vial) 10 mg 1X ONCE 06/27/19 21:30 06/27/19 21:31 DC 06/27/19 21:33 10 MG Sodium Chloride 1,000 ml @ 1,000 mls/hr 1X ONCE 06/27/19 21:30 06/27/19 22:29 DC 06/27/19 21:33 1,000 MLS/HR Allergies Allergies Allergies Coded Allergies Type Severity Reaction Last Updated Verified No Known Drug Allergies 06/09/16 No Physical Exam Physical Exam See above Constitutional: Well developed, well nourished, appears slightly uncomfortable, non-toxic appearance. [] HENT: Normocephalic, atraumatic, bilateral external ears normal, oropharynx moist, no oral exudates, nose normal. [] Eyes: PERRLA, EOMI, conjunctiva normal, no discharge. [] Neck: Normal range of motion, no tenderness, supple, no stridor. [] Cardiovascular:Heart rate regular rhythm, no murmur [] Lungs & Thorax: Bilateral breath sounds clear to auscultation [] Abdomen: Bowel sounds normal, soft, no tenderness, no masses, no pulsatile masses. [] Skin: Warm, dry, no erythema, no rash. [] Back: No tenderness, no CVA tenderness. [] Extremities: No tenderness, no cyanosis, no clubbing, ROM intact, no edema. [] Neurologic: Alert and oriented X 3, normal motor function, normal sensory function, no focal deficits noted. [] Psychologic: Affect normal, judgement normal, mood normal. [] Current Patient Data Vital Signs Vital Signs Date Time Temp Pulse Resp B/P (MAP) Pulse Ox O2 Delivery O2 Flow Rate FiO2 06/27/19 21:05 98.0 52 18 149/67 (94) 96 Room Air 98.0 EKG EKG [] Radiology/Procedures Radiology/Procedures [] Course & Med Decision Making Course & Med Decision Making Pertinent Labs and Imaging studies reviewed. (See chart for details) 2118: Will start with a migraine cocktail and reevaluate. Of note patient had an EKG performed which showed a sinus bradycardia. Patient has history of laine ycardia 2229: Patient starting to feel better, sleeping; will give 50mcg fentanyl and d/c. Dragon Disclaimer Dragon Disclaimer This electronic medical record was generated, in whole or in part, using a voice recognition dictation system. Departure Departure Impression: Primary Impression: Migraine Disposition: HOME, SELF-CARE Condition: STABLE Referrals: JACOB GOETZ MD (PCP) Follow up for ongoing symptoms. Patient Instructions: Migraine Headache SHARIF HYLTON DO Jun 27, 2019 21:19
[2019-06-27] MEDS ORDERED: KETOROLAC 30 MG/ML VIAL. IVP ONE (21:30)
[2019-06-27] MEDS ORDERED: IV NORMAL SALINE 1000ML BAG 1,000 ML IV ONE (21:30)
[2019-06-27] MEDS ORDERED: METOCLOPRAMIDE HCL 10 MG/2 ML VIAL. IVP ONE (21:30)
[2019-06-27] MEDS ORDERED: diphenhydrAMINE 50 MG/ML VIAL IVP ONE (21:30)
[2019-06-27 22:10] VITALS: BP 126/66
[2019-06-27] MEDS ORDERED: fentaNYL PF VIAL 100 MCG/2 ML VIAL IVP ONE (22:30)
--- NOTE | 2019-06-28 07:07 | EKG ---
[facility] [address] [place] [address] Test Date: 2019-06-27 Test Time: 21:16:15 Pat Name: LUIS MANUEL BATES Department: Room: Gender: F [place]: : 1970 Requested By: SHARIF HYLTON Order Number: [id number] Reading MD: Measurements Intervals [place] Rate: 47 P: MS: QRS: 30 QRSD: 96 T: 22 QT: 464 QTc: 414 Interpretive Statements SECOND OR THIRD DEGREE AV-BLOCK QRS(T) CONTOUR ABNORMALITY CONSIDER INFERIOR MYOCARDIAL DAMAGE ABNORMAL ECG RI6.01 No previous ECG available for comparison
== END 2019-06-27 22:45 | disposition home or self-care (01) ==
LOC: ER 20:54
DX: G43.909 Migraine, unspecified, not intractable, without status migrainosus (principal); R42 Dizziness and giddiness; Z98.890 Other specified postprocedural states; Z79.899 Other long term (current) drug therapy
CPT/HCPCS: 93005; 96361; 96374; 96375; 99284; J1200; J1885; J2765; J3010; J7030

== ENCOUNTER 2020-03-27 21:16 | Emergency (ER) | payer MEDICAID ==
[~2020-03-27] VITALS: Ht 154.9 cm; Wt 72.7 kg
[~2020-03-27 21:16] MED LIST changes: -ALEN70TA6 PO; +ALEN70TA60 PO; +VENTOLIN HFA18 GM INH
[2020-03-27 22:09] LABS: BASO # 0.1 x10^3/uL (0.0-0.2); BASO % 1 % (0-3); EOS # 0.3 x10^3/uL (0.0-0.7); EOS % 3 % (0-3); HEMATOCRIT 32.3 % (36.0-47.0); HEMOGLOBIN 10.9 g/dL (12.0-15.5); LYMPH # 3.1 x10^3/uL (1.0-4.8); LYMPH % 36 % (24-48); MEAN CORPUSCULAR HEMOGLOBIN 26 pg (25-35); MEAN CORPUSCULAR HGB CONC 34 g/dL (31-37); MEAN CORPUSCULAR VOLUME 78 fL (79-100); MONO # 0.6 x10^3/uL (0.0-1.1); MONO % 7 % (0-9); NEUT # 4.5 x10^3/uL (1.8-7.7); NEUT % 53 % (31-73); PLATELET COUNT 192 x10^3/uL (140-400); RED BLOOD COUNT 4.13 x10^6/uL (3.50-5.40); RED CELL DISTRIBUTION WIDTH 14.2 % (11.5-14.5); WHITE BLOOD COUNT 8.5 x10^3/uL (4.0-11.0)
[2020-03-27 22:11] LABS: BILIRUBIN,URINE NEGATIVE (NEG); CLARITY,URINE CLOUDY; COLOR,URINE YELLOW; NITRITE,URINE NEGATIVE (NEG); PH,URINE 6.5 (<5.0-8.0); PROTEIN,URINE NEGATIVE (NEG-TRACE)
[2020-03-27 22:17] LABS: CALCIUM 8.1 mg/dL (8.5-10.1); CREATININE 0.6 mg/dL (0.6-1.0); GFR 105.8; POTASSIUM 3.6 mmol/L (3.5-5.1)
[2020-03-27 22:17] LABS: BACTERIA,URINE MODERATE /HPF (0-FEW); RBC,URINE 0 /HPF (0-2); WBC,URINE 20-40 /HPF (0-4)
[2020-03-27 22:26] LABS: U PREG PATIENT NEGATIVE (NEG)
[2020-03-27 22:28] LABS: ALBUMIN 3.6 g/dL (3.4-5.0); MAGNESIUM 2.1 mg/dL (1.8-2.4); TOTAL BILIRUBIN 0.3 mg/dL (0.2-1.0); TOTAL PROTEIN 7.1 g/dL (6.4-8.2)
[2020-03-27] MEDS ORDERED: METOCLOPRAMIDE HCL 10 MG/2 ML VIAL. IVP ONE (22:30)
[2020-03-27] MEDS ORDERED: IV NORMAL SALINE 1000ML BAG 1,000 ML IV ONE (22:30)
[2020-03-27] MEDS ORDERED: KETOROLAC 15 MG/ML VIAL. IVP ONE (22:30)
--- NOTE | 2020-03-27 22:42 | RAD ---
Exam: CT of abdomen and pelvis without contrast INDICATION: Left flank pain, evaluate for ureteral calculi TECHNIQUE: Sequential axial images through the abdomen and pelvis obtained without IV contrast. Sagittal and coronal reformatted images were reconstructed from the axial data and reviewed. Comparisons: 03/22/2017 FINDINGS: Heart size is normal. No pericardial effusion. Visualized lung bases are clear. No pleural effusion. Evaluation of the solid organs is limited secondary to noncontrast technique. There is diffuse hepatic steatosis. Spleen, pancreas, gallbladder and adrenals are unremarkable. No perinephric inflammation or hydronephrosis. No renal or ureteral calculi are identified. Bladder is decompressed not well evaluated. Uterus is nonenlarged. There is a cystic lesion at the left adnexa which measures approximately 3.3 cm. Large and small bowel are unremarkable. Appendix is normal. No free abdominal air or fluid. No obstruction. Abdominal aorta has a normal course and caliber. No enlarged abdominal lymph nodes are identified. No suspicious osseous lesions or acute fractures. IMPRESSION: 1. No renal or ureteral calculi. No evidence for obstructive uropathy. 2. A 3.3 cm cystic lesion at the left adnexa likely cyst in the left ovary however incompletely characterized on CT. 3. Hepatic steatosis. Exposure: One or more of the following in the visualized dose reduction techniques were utilized for this examination: 1. Automated exposure control 2. Adjustment of the MA and/or KV according to patient size 3. Use of iterative of reconstructive technique Electronically signed by: Risa Luevano MD (03/27/2020 10:40 PM) [facility]
[2020-03-27] MEDS ORDERED: ONDA4TAB12 PO (22:58)
[2020-03-27] MEDS ORDERED: NAPR-695 PO (22:58)
[2020-03-27] MEDS ORDERED: CEPH-264 PO (22:58)
--- NOTE | 2020-03-27 22:59 | PHYS DOC ---
Past Medical History Past Medical History: Depression, GERD, Other Additional Past Medical Histor: decreased use of left arm as baseline,VERTIGO ,CHRONIC ABD PAIN,PUD?bradycar Past Surgical History: Tubal ligation, Other Additional Past Surgical Histo: BACK SURGERY Smoking Status: Never Smoker Alcohol Use: None Drug Use: None General Adult EDM: Chief Complaint: ABDOMINAL PAIN HPI: HPI: Patient is a 49 year old female presents with report of left-sided abdominal and flank pain that started a few days ago. Patient reportedly had similar episode last month around the time of her menses. Denies any trauma. Denies rash. Denies fever or chills. Patient does report some increased urinary frequency. Patient speaks Spanish and therefore use of master black belt phone was utilized. Review of Systems: Review of Systems: Constitutional: Denies fever or chills Eyes: Denies redness or eye pain HENT: Denies nasal congestion or sore throat Respiratory: Denies cough or shortness of breath Cardiovascular: Denies chest pain or palpitations GI: Reports abdominal pain and nausea; denies vomiting or diarrhea : Denies dysuria or hematuria Musculoskeletal: Reports left-sided flank/back pain; denies extremity pain Integument: Denies rash or skin lesions Neurologic: Denies headache, focal weakness or sensory changes Complete systems were reviewed and found to be within normal limits, except as documented in this note. Current Medications: Current Medications Medications (Trade) Dose Ordered Sig/[facility] Start Time Stop Time Status Last Admin Dose Admin Ketorolac Tromethamine (Toradol 15mg Vial) 15 mg 1X ONCE 03/27/20 22:30 03/27/20 22:31 DC 03/27/20 22:34 15 MG Metoclopramide HCl (Reglan Vial) 10 mg 1X ONCE 03/27/20 22:30 03/27/20 22:31 DC 03/27/20 22:34 10 MG Sodium Chloride 1,000 ml @ 1,000 mls/hr 1X ONCE 03/27/20 22:30 03/27/20 23:29 03/27/20 22:33 1,000 MLS/HR Allergies: Allergies: Allergies Coded Allergies Type Severity Reaction Last Updated Verified No Known Drug Allergies 06/09/16 No Physical Exam: PE: Constitutional: Well developed, well nourished, no acute distress, non-toxic appearance HENT: Normocephalic, atraumatic Eyes: Conjunctiva normal, no discharge Neck: Normal range of motion, no tenderness, supple Lungs & Thorax: No respiratory distress, equal chest rise and fall Abdomen: Soft, LUQ pain on palpation, no guarding/rebound tenderness/distention Skin: Warm, dry, no erythema, no rash Back: No tenderness, left CVA tenderness Extremities: No tenderness, ROM intact, no edema Neurologic: Alert and oriented X 3, no focal deficits noted Psychologic: Affect normal, judgment normal Current Patient Data: Labs: Laboratory Tests Test 03/27/20 21:47 03/27/20 22:00 Urine Collection Type Unknown Urine Color Yellow Urine Clarity Cloudy Urine pH 6.5 (<5.0-8.0) Urine Specific [place] 1.020 (1.000-1.030) Urine Protein Negative mg/dL (NEG-TRACE) Urine Glucose (UA) Negative mg/dL (NEG) Urine Ketones (Stick) Negative mg/dL (NEG) Urine Blood Negative (NEG) Urine Nitrite Negative (NEG) Urine Bilirubin Negative (NEG) Urine Urobilinogen Dipstick 1.0 mg/dL (0.2 mg/dL) Urine Leukocyte Esterase Large (NEG) Urine RBC 0 /HPF (0-2) Urine WBC 20-40 /HPF (0-4) Urine Squamous Epithelial Cells Many /LPF Urine Bacteria Moderate /HPF (0-FEW) Urine Mucus Slight /LPF Urine Test Negative (NEG) White Blood Count 8.5 x10^3/uL (4.0-11.0) Red Blood Count 4.13 x10^6/uL (3.50-5.40) Hemoglobin 10.9 g/dL (12.0-15.5) L Hematocrit 32.3 % (36.0-47.0) L Mean Corpuscular Volume 78 fL (79-100) L Mean Corpuscular Hemoglobin 26 pg (25-35) Mean Corpuscular Hemoglobin Concent 34 g/dL (31-37) Red Cell Distribution Width 14.2 % (11.5-14.5) Platelet Count 192 x10^3/uL (140-400) Neutrophils (%) (Auto) 53 % (31-73) Lymphocytes (%) (Auto) 36 % (24-48) Monocytes (%) (Auto) 7 % (0-9) Eosinophils (%) (Auto) 3 % (0-3) Basophils (%) (Auto) 1 % (0-3) Neutrophils # (Auto) 4.5 x10^3/uL (1.8-7.7) Lymphocytes # (Auto) 3.1 x10^3/uL (1.0-4.8) Monocytes # (Auto) 0.6 x10^3/uL (0.0-1.1) Eosinophils # (Auto) 0.3 x10^3/uL (0.0-0.7) Basophils # (Auto) 0.1 x10^3/uL (0.0-0.2) Sodium Level 139 mmol/L (136-145) Potassium Level 3.6 mmol/L (3.5-5.1) Chloride Level 105 mmol/L (98-107) Carbon Dioxide Level 26 mmol/L (21-32) Anion Gap 8 (6-14) Blood Urea Nitrogen 7 mg/dL (7-20) Creatinine 0.6 mg/dL (0.6-1.0) Estimated GFR (Cockcroft-Gault) 105.8 BUN/Creatinine Ratio 12 (6-20) Glucose Level 105 mg/dL (70-99) H Calcium Level 8.1 mg/dL (8.5-10.1) L Magnesium Level 2.1 mg/dL (1.8-2.4) Total Bilirubin 0.3 mg/dL (0.2-1.0) Aspartate Amino Transferase (AST) 39 U/L (15-37) H Alanine Aminotransferase (ALT) 44 U/L (14-59) Alkaline Phosphatase 60 U/L (46-116) Total Protein 7.1 g/dL (6.4-8.2) Albumin 3.6 g/dL (3.4-5.0) Albumin/Globulin Ratio 1.0 (1.0-1.7) Lipase 111 U/L (73-393) Laboratory Tests 03/27/20 22:00 Laboratory Tests 03/27/20 22:00 Vital Signs: Vital Signs Date Time Temp Pulse Resp B/P (MAP) Pulse Ox O2 Delivery O2 Flow Rate FiO2 03/27/20 21:22 97.6 54 20 127/76 (93) 99 Room Air 97.6 EKG: EKG: [] Radiology/Procedures: Radiology/Procedures: PROCEDURE: CT ABDOMEN PELVIS WO CONTRAST Exam: CT of abdomen and pelvis without contrast INDICATION: Left flank pain, evaluate for ureteral calculi TECHNIQUE: Sequential axial images through the abdomen and pelvis obtained without IV contrast. Sagittal and coronal reformatted images were reconstructed from the axial data and reviewed. Comparisons: 03/22/2017 FINDINGS: Heart size is normal. No pericardial effusion. Visualized lung bases are clear. No pleural effusion. Evaluation of the solid organs is limited secondary to noncontrast technique. There is diffuse hepatic steatosis. Spleen, pancreas, gallbladder and adrenals are unremarkable. No perinephric inflammation or hydronephrosis. No renal or ureteral calculi are identified. Bladder is decompressed not well evaluated. Uterus is nonenlarged. There is a cystic lesion at the left adnexa which measures approximately 3.3 cm. Large and small bowel are unremarkable. Appendix is normal. No free abdominal air or fluid. No obstruction. Abdominal aorta has a normal course and caliber. No enlarged abdominal lymph nodes are identified. No suspicious osseous lesions or acute fractures. IMPRESSION: 1. No renal or ureteral calculi. No evidence for obstructive uropathy. 2. A 3.3 cm cystic lesion at the left adnexa likely cyst in the left ovary however incompletely characterized on CT. 3. Hepatic steatosis. Exposure: One or more of the following in the visualized dose reduction techniques were utilized for this examination: 1. Automated exposure control 2. Adjustment of the MA and/or KV according to patient size 3. Use of iterative of reconstructive technique Electronically signed by: Risa Luevano MD (03/27/2020 10:40 PM) [facility] Course & Med Decision Making: Course & Med Decision Making Pertinent Labs and Imaging studies reviewed. (See chart for details) Patient speaks Spanish and therefore use of master black belt phone was utilized. Patient presents with left-sided flank pain with associated nausea. Pain/nausea addressed. IV fluid hydration given. Labs obtained and posted to chart. UA with signs of infection. Empiric antibiotic initiated. CT abdomen/pelvis without acute finding. Patient stable for discharge with outpatient follow-up with PCP. Discussed findings and plan with patient and family, who acknowledge understanding and agreement. Anup Disclaimer: Anup Disclaimer: This electronic medical record was generated, in whole or in part, using a voice recognition dictation system. Departure Departure Impression: Primary Impression: Pyelonephritis Additional Impression: Ovarian cyst Qualified Codes: N83.202 - Unspecified ovarian cyst, left side Disposition: DC HOME SELF CARE/HOMELESS Condition: STABLE Referrals: JACOB GOETZ MD (PCP) Patient Instructions: Pyelonephritis, Adult, [id number] Scripts Cephalexin (KEFLEX) 500 Mg Capsule 1 CAP PO TID for 7 Days, #21 CAP 0 Refills Prov: LUIS RENTERIA DO 03/27/20 Ondansetron (ONDANSETRON ODT) 4 Mg Tab.rapdis 1 TAB PO PRN Q6-8HRS PRN for NAUSEA, #16 TAB Prov: LUIS RENTERIA DO 03/27/20 Naproxen (NAPROXEN) 375 Mg Tablet 375 MG PO TID PRN PRN for PAIN, #20 TAB Prov: LUIS RENTERIA DO 03/27/20 LUIS RENTERIA DO Mar 27, 2020 22:59
[2020-03-27 23:13] VITALS: BP 117/68
[2020-03-27] MEDS ORDERED: cefTRIAXone IV Push 1 GM VIAL. IVP ONE (23:30)
== END 2020-03-27 23:40 | disposition home or self-care (01) ==
LOC: ER 21:16
DX: N12 Tubulo-interstitial nephritis, not specified as acute or chronic (principal); N83.202 Unspecified ovarian cyst, left side; K21.9 Gastro-esophageal reflux disease without esophagitis; G89.29 Other chronic pain; Z98.51 Tubal ligation status
CPT/HCPCS: 36415; 74176; 80053; 81001; 81025; 83690; 83735; 85025; 96361; 96374; 96375; 99285; J0696; J1885; J2765; J7030; 87086

== ENCOUNTER 2020-06-29 21:54 | Emergency (ER) | payer MEDICAID ==
[~2020-06-29] VITALS: Ht 152.4 cm; Wt 77.3 kg
[~2020-06-29 21:54] MED LIST changes: -ALEN70TA60 PO; +ALEN70TA71 PO; -CLIN150C14 PO; +CLIN150C15 PO; +NAPR-695 PO; +ONDA4TAB12 PO
[2020-06-29] MEDS ORDERED: IBUPROFEN 400 MG TABLET. PO ONE (22:30)
--- NOTE | 2020-06-29 22:48 | RAD ---
XR CHEST 1V 06/29/2020 10:29 PM INDICATION: Sore throat COMPARISON: 02/23/2020 TECHNIQUE: Portable frontal view of the chest is provided. FINDINGS: The cardiomediastinal silhouette is within normal limits. Lungs are clear. There are no significant pleural effusions. There is no pulmonary vascular congestion. No pneumothora x. No suspicious osseous abnormality. IMPRESSION: There is no acute cardiopulmonary process. Electronically signed by: Zahida Palmer MD (06/29/2020 10:46 PM) [facility]
--- NOTE | 2020-06-29 22:49 | RAD ---
XR NECK SOFT TISSUE 06/29/2020 10:29 PM INDICATION: Sore throat, difficulty swallowing for one week COMPARISON: None available. TECHNIQUE: AP and lateral views of the neck soft tissues are provided. FINDINGS/ IMPRESSION: 1. Nasopharyngeal and oropharyngeal airways appear patent. Epiglottis is normal. 2. No prevertebral soft tissue swelling. No subglottic stenosis. 3. Alignment of the cervical spine is normal. No acute fracture. No suspicious soft tissue abnormalit y. Electronically signed by: Zahida Palmer MD (06/29/2020 10:47 PM) [facility]
[2020-06-29] MEDS ORDERED: PENI500T PO (23:26)
--- NOTE | 2020-06-29 23:26 | PHYS DOC ---
Past Medical History Past Medical History: Depression, GERD, Other Additional Past Medical Histor: decreased use of left arm as baseline,VERTIGO,CHRONIC ABD PAIN,PUD,bradycar Past Surgical History: Tubal ligation, Other Additional Past Surgical Histo: BACK SURGERY Smoking Status: Never Smoker Alcohol Use: None Drug Use: None Adult General Chief Complaint Chief Complaint: DIFFICULTY SWALLOWING HPI HPI Patient is a 49 year old female with past with history of GERD presents emergency department complaint of new onset of sore throat and throat pain. Patient states over the last 5 days she is having worsening sensation of left- sided throat pain that occurs when she swallows and radiates into the left anterior portion of the neck into the chest. States it has been associated with mild subjective fevers. Denies any dizziness, lightheadedness, shortness of breath, cough Review of Systems Review of Systems Constitutional: Denies fever or chills [] Eyes: Denies change in visual acuity, redness, or eye pain [] HENT: Denies nasal congestion or sore throat [] Respiratory: Denies cough or shortness of breath [] Cardiovascular: No additional information not addressed in HPI [] GI: Denies abdominal pain, nausea, vomiting, bloody stools or diarrhea [] : Denies dysuria or hematuria [] Musculoskeletal: Denies back pain or joint pain [] Integument: Denies rash or skin lesions [] Neurologic: Denies headache, focal weakness or sensory changes [] Endocrine: Denies polyuria or polydipsia [] All other systems were reviewed and found to be within normal limits, except as documented in this note. Current Medications Current Medications Current Medications Medications (Trade) Dose Ordered Sig/[facility] Start Time Stop Time Status Last Admin Dose Admin Ibuprofen (Motrin) 800 mg 1X ONCE 06/29/20 22:30 06/29/20 22:31 DC 06/29/20 22:49 800 MG Allergies Allergies Allergies Coded Allergies Type Severity Reaction Last Updated Verified No Known Drug Allergies 06/09/16 No Physical Exam Physical Exam Constitutional: Well developed, well nourished, no acute distress, non-toxic appearance. [] HENT: Normocephalic, atraumatic, bilateral external ears normal, oropharynx moist, no oral exudates, nose normal. [] Eyes: PERRLA, EOMI, conjunctiva normal, no discharge. [] Neck: Normal range of motion, no tenderness, supple, no stridor. Left tonsillar adenopathy and left anterior cervical adenopathy [] Cardiovascular:Heart rate regular rhythm, no murmur [] Lungs & Thorax: Bilateral breath sounds clear to auscultation [] Abdomen: Bowel sounds normal, soft, no tenderness, no masses, no pulsatile masses. [] Skin: Warm, dry, no erythema, no rash. [] Back: No tenderness, no CVA tenderness. [] Extremities: No tenderness, no cyanosis, no clubbing, ROM intact, no edema. [] Neurologic: Alert and oriented X 3, normal motor function, normal sensory function, no focal deficits noted. [] Psychologic: Affect normal, judgement normal, mood normal. [] Current Patient Data Vital Signs Vital Signs Date Time Temp Pulse Resp B/P (MAP) Pulse Ox O2 Delivery O2 Flow Rate FiO2 06/29/20 21:58 98.1 66 20 127/60 (82) 97 Room Air 98.1 EKG EKG [] Radiology/Procedures Radiology/Procedures [] Course & Med Decision Making Course & Med Decision Making Pertinent Labs and Imaging studies reviewed. (See chart for details) P0 female presenting to emergency department left-sided throat swelling most consistent with acute strep pharyngitis. Will discharge home with a course of antibiotics Dragon Disclaimer Dragon Disclaimer This electronic medical record was generated, in whole or in part, using a voice recognition dictation system. Departure Departure Impression: Primary Impression: Pharyngitis Disposition: 01 DC HOME SELF CARE/HOMELESS Condition: GOOD Referrals: JACOB GOETZ MD (PCP) Patient Instructions: Viral and Bacterial Pharyngitis Additional Instructions: EMERGENCY DEPARTMENT GENERAL DISCHARGE INSTRUCTIONS Thank you for coming to [facility] Emergency Department (ED) today and trusting us with you care. We trust that you had a positive experience in our Emergency Department. If you wish to speak to the department management, you may call the Director at [phone]. YOUR FOLLOW UP INSTRUCTIONS ARE FOLLOWS: 1. Do you have a private Doctor? If you do not have a private doctor, please ask for a resource list of physicians or clinics that may be able to assist you with follow up care. 2. The Emergency Physicain has interpreted your x-rays. The X-Ray specialist will also review them. If there is a change in the findings, you will be notified in 48 hours when at all possible. 3. A lab test or culture has been done, your results will be reviewed and you will be notified if you need a change in treatment. ADDITIONAL INSTRUCTIONS AND INFORMATION: 1. Your care today has been supervised by a physician who is specially trained in emergency care. Many problems require more than one evaluation for a complete diagnosis and treatment. We recommend that you schedule your follow up appointment as recommended to ensure complete treatment of you illness or injury. If you are unable to obtain follow up care and continue to have a problem, or if your condition worsens, we recommend that you return to the ED. 2. We are not able to safely determine your condition over the phone nor are we able to give sound medical advice over the phone. For these safety reasons, if you call for medical advice we will ask you to come to the ED for further evaluation. 3. If you have any questions regarding these discharge instructions please call the ED at [phone]. SAFETY INFORMATION: In the interest of safety, wellness, and injury prevention; we encourage you to wear your sealbelt, if you smoke; quite smoking, and we encourage family to use a protective helmet for bicycling and other sporting events that present an increased risk for head injury. IF YOUR SYMPTOMS WORSEN OR NEW SYMPTOMS DEVELOP, OR YOU HAVE CONCERNS ABOUT YOUR CONDITION; OR IF YOUR CONDITION WORSENS WHILE YOU ARE WAITING FOR YOUR FOLLOW UP APPOINTMENT; EITHER CONTACT YOUR PRIMARY CARE DOCTOR, THE PHYSICIAN WHOSE NAME AND NUMBER YOU WERE GIVEN, OR RETURN TO THE ED IMMEDIATELY. Scripts Penicillin V Potassium (PENICILLIN V POTASSIUM) 500 Mg Tablet 2 TAB PO Q12HR, #40 TAB Prov: KERI MOROCHO MD 06/29/20 KERI MOROCHO MD Jun 29, 2020 23:26
[2020-06-30 00:06] VITALS: BP 116/58
== END 2020-06-30 00:10 | disposition home or self-care (01) ==
LOC: ER 21:54
DX: J02.9 Acute pharyngitis, unspecified (principal); M54.2 Cervicalgia; R50.9 Fever, unspecified; G89.29 Other chronic pain; K21.9 Gastro-esophageal reflux disease without esophagitis
CPT/HCPCS: 70360; 71045; 99285-25

== ENCOUNTER 2020-10-01 00:05 | Emergency (ER) | payer MEDICAID ==
[~2020-10-01] VITALS: Ht 152.4 cm; Wt 74.8 kg
[~2020-10-01 00:05] MED LIST changes: +MIRT-7 PO; -MIRT15TA3 PO; -OMEP40CA45 PO; +OMEP40CA7 PO; +PENI500T PO
[2020-10-01 00:10] VITALS: BP 120/56
[2020-10-01] MEDS ORDERED: CLIN300C9 PO (01:22)
--- NOTE | 2020-10-01 01:23 | ED.ADGEN ---
Past Medical History Past Medical History: Depression, GERD, Other Additional Past Medical Histor: decreased use of left arm as baseline,VERTIGO,CHRONIC ABD PAIN,PUD,bradycar Past Surgical History: Tubal ligation, Other Additional Past Surgical Histo: BACK SURGERY Smoking Status: Never Smoker Alcohol Use: None Drug Use: None General Adult EDM: Chief Complaint: EARACHE/EAR PAIN HPI: HPI: Patient is a 49-year-old female who presents to the emergency room with multiple complaints. Patient has been having right-sided ear pain that radiates into her neck for the last several days. She denies any nasal congestion or facial pressure. She has not had any fevers, chills, sweats. She denies drainage from the ear. Patient also has noticed a area of redness on her right inner thigh. She does not remember getting bit by anything. She states it is painful and hot. Review of Systems: Review of Systems: Complete ROS is negative unless otherwise documented in HPI Allergies: Allergies: Allergies Coded Allergies Type Severity Reaction Last Updated Verified No Known Drug Allergies 06/09/16 No Physical Exam: PE: General: Awake, alert, NAD. Well Nourished, well hydrated. Cooperative HEENT: Atraumatic, EOMI, PERRL, airway patent, moist oral mucosa, perforated right eardrum with minimal erythema and fluid Neck: Supple, trachea midline Respiratory: CTA bilaterally, normal effort, no wheezing/crackles CV: RRR, no murmur, cap refill <2 GI: Soft, nondistended, nontender, no masses MSK: No obvious deformities Skin: Warm, dry, intact. Right inner thigh: 3x4 cm round lesion with induration, redness, warmth, no fluctuation Neuro: A&O x3, speech NL, sensory and motor grossly intact, no focal deficits Psych: Normal affect, normal mood, not suicidal or homicidal Current Patient Data: Vital Signs: Vital Signs Date Time Temp Pulse Resp B/P (MAP) Pulse Ox O2 Delivery O2 Flow Rate FiO2 10/01/20 00:10 98.9 52 18 120/56 (77) 97 Room Air 98.9 EKG: EKG: [] Heart Score: C/O Chest Pain: N/A Risk Factors: Risk Factors: DM, Current or recent (<one month) smoker, HTN, HLP, family history of CAD, obesity. Risk Scores: Score 0 - 3: 2.5% MACE over next 6 weeks - Discharge Home Score 4 - 6: 20.3% MACE over next 6 weeks - Admit for Clinical Observation Score 7 - 10: 72.7% MACE over next 6 weeks - Early Invasive Strategies Radiology/Procedures: Radiology/Procedures: [] Course & Med Decision Making: Course & Med Decision Making Pertinent Labs and Imaging studies reviewed. (See chart for details) Patient is a 49-year-old female who presents to the emergency room with 2 separate problems. Patient has an otitis media with a perforated eardrum. I discussed with her the importance of not putting anything in her ears or letting water get in the ear. We have discussed that she needs to follow-up with ENT. Patient also has an area of cellulitis on her inner thigh. There is no fluctuance or areas that can be drained consistent with an abscess. She will be placed on antibiotics to cover both the cellulitis and the otitis media. Patient's test results and vitals while in the ED were fully reviewed and discussed with the patient. Patient is stable and at this time does not need admission to the hospital. We have discussed strict return precautions and the importance of following up with their Primary Care Physician. Patient stated understanding and was given an opportunity to ask any questions. Patient is in agreement with plan. Anup Disclaimer: Anup Disclaimer: This electronic medical record was generated, in whole or in part, using a voice recognition dictation system. Departure Departure Impression: Primary Impression: Cellulitis, leg Additional Impressions: Otitis media Ruptured ear drum Disposition: HOME / SELF CARE / HOMELESS Condition: STABLE Referrals: JACOB GOETZ MD (PCP) OKSANA LOWE MD Within next week Patient Instructions: Cellulitis, Eardrum Perforation Scripts Clindamycin Hcl (CLINDAMYCIN HCL) 300 Mg Capsule 1 CAP PO TID, #21 CAP Prov: KRISTIN BECK MD 10/01/20 Problem Qualifiers KRISTIN BECK MD Oct 01, 2020 01:22
== END 2020-10-01 01:25 | disposition home or self-care (01) ==
LOC: ER 00:05
DX: H72.91 Unspecified perforation of tympanic membrane, right ear (principal); H66.91 Otitis media, unspecified, right ear; L03.115 Cellulitis of right lower limb; K21.9 Gastro-esophageal reflux disease without esophagitis; G89.29 Other chronic pain; Z98.51 Tubal ligation status; Z98.890 Other specified postprocedural states
CPT/HCPCS: 99283

== ENCOUNTER 2020-11-05 23:39 | Emergency (ER) | payer MEDICAID ==
[~2020-11-05] VITALS: Ht 152.4 cm; Wt 75.0 kg
[~2020-11-05 23:39] MED LIST changes: +CLIN300C9 PO
[2020-11-06 01:22] VITALS: BP 100/58
[2020-11-06] MEDS ORDERED: CIPR10DR AS (02:12)
[2020-11-06] MEDS ORDERED: TRAM-48 PO (02:12)
[2020-11-06] MEDS ORDERED: AMOX500T PO (02:12)
--- NOTE | 2020-11-06 02:14 | PHYS DOC ---
Past Medical History Past Medical History: Depression, GERD, Other Additional Past Medical Histor: decreased use of left arm as baseline,VERTIGO,CHRONIC ABD PAIN,PUD,bradycar Past Surgical History: Tubal ligation, Other Additional Past Surgical Histo: BACK SURGERY Smoking Status: Never Smoker Alcohol Use: None Drug Use: None General Adult EDM: Chief Complaint: EARACHE/EAR PAIN HPI: HPI: Patient is a 50 year old female presents with a chief complaint of ear pain. Patient's pain is located in her left ear. No associated fevers or chills runny and stuffy nose.Patient has taken OTC Tylenol with minimal relief. Review of Systems: Review of Systems: Review of systems: Constitutional symptoms- No fever, no chills. Eyes- No Discharge, No Visual Loss Respiratory symptoms- No shortness of breath, No wheezing, No Dyspnea on Exertion Cardiovascular Systems; No chest pain, No Palpitations, No syncope Gastrointestinal symptoms: NO abdominal pain, no nausea, no vomiting or diarrhea. Genitourinary symptoms: No dysuria. Musculoskeletal symptoms: No back pain No extremity pain. NEUROLOGICAL Symptoms: No headache, no generalized weakness; No focal Weakness Skin: No rash. HEENT positive ear pain Heart Score: C/O Chest Pain: N/A Risk Factors: Risk Factors: DM, Current or recent (<one month) smoker, HTN, HLP, family history of CAD, obesity. Risk Scores: Score 0 - 3: 2.5% MACE over next 6 weeks - Discharge Home Score 4 - 6: 20.3% MACE over next 6 weeks - Admit for Clinical Observation Score 7 - 10: 72.7% MACE over next 6 weeks - Early Invasive Strategies Allergies: Allergies: Allergies Coded Allergies Type Severity Reaction Last Updated Verified No Known Drug Allergies 06/09/16 No Physical Exam: PE: Constitutional: Well developed, well nourished, no acute distress, non-toxic appearance. [] HENT: Normocephalic, atraumatic, bilateral external ears normal, oropharynx moist, no oral exudates, nose normal. [] Left TM erythema Eyes: PERRLA, EOMI, conjunctiva normal, no discharge. [] Neck: Normal range of motion, no tenderness, supple, no stridor. [] Cardiovascular:Heart rate regular rhythm, no murmur [] Lungs & Thorax: Bilateral breath sounds clear to auscultation [] Abdomen: Bowel sounds normal, soft, no tenderness, no masses, no pulsatile masses. [] Skin: Warm, dry, no erythema, no rash. [] Back: No tenderness, no CVA tenderness. [] Extremities: No tenderness, no cyanosis, no clubbing, ROM intact, no edema. [] Neurologic: Alert and oriented X 3, normal motor function, normal sensory function, no focal deficits noted. [] Psychologic: Affect normal, judgement normal, mood normal. [] Current Patient Data: Vital Signs: Vital Signs Date Time Temp Pulse Resp B/P (MAP) Pulse Ox O2 Delivery O2 Flow Rate FiO2 11/06/20 01:22 98.0 52 18 100/58 (77) 98 Room Air 98.0 EKG: EKG: [] Radiology/Procedures: Radiology/Procedures: [] Course & Med Decision Making: Course & Med Decision Making Pertinent Labs and Imaging studies reviewed. (See chart for details) [] Dragon Disclaimer: Dragon Disclaimer: This electronic medical record was generated, in whole or in part, using a voice recognition dictation system. Departure Departure Impression: Primary Impression: Acute otitis media Disposition: HOME / SELF CARE / HOMELESS Condition: STABLE Referrals: JACOB GOETZ MD (PCP) Patient Instructions: Otitis Media, Adult Scripts Ciprofloxacin/Hydrocortisone (CIPRO HC OTIC SUSPENSION) 10 Ml Drops.susp 3 DROP BID, #10 ML Prov: MIMI QUIÑONEZ DO 11/06/20 Tramadol Hcl (ULTRAM) 50 Mg Tablet 1 TAB PO PRN Q6HRS PRN for pain MDD 4 Tablet(s) for 7 Days, #28 TAB 0 Refills Prov: MIMI QUIÑONEZ DO 11/06/20 Amoxicillin (AMOXICILLIN) 500 Mg Tablet 1 TAB PO BID, #20 TAB Prov: MIMI QUIÑONEZ DO 11/06/20 MIMI QUIÑONEZ DO Nov 06, 2020 02:14
== END 2020-11-06 02:15 | disposition home or self-care (01) ==
LOC: ER 23:39
DX: H66.92 Otitis media, unspecified, left ear (principal); G89.29 Other chronic pain; K21.9 Gastro-esophageal reflux disease without esophagitis
CPT/HCPCS: 99283

== ENCOUNTER 2020-11-24 20:50 | Emergency (ER) | payer MEDICAID ==
[~2020-11-24] VITALS: Ht 152.4 cm; Wt 55.0 kg
[~2020-11-24 20:50] MED LIST changes: +AMOX500T PO; +CIPR10DR AS; -CLIN150C15 PO; +CLIN150C16 PO
--- NOTE | 2020-11-24 23:07 | PHYS DOC ---
Past Medical History Past Medical History: Depression, GERD, Other Additional Past Medical Histor: decreased use of left arm as baseline,VERTIGO,CHRONIC ABD PAIN,PUD,bradycar Past Surgical History: Tubal ligation, Other Additional Past Surgical Histo: BACK SURGERY Smoking Status: Never Smoker Alcohol Use: None Drug Use: None General Adult EDM: Chief Complaint: left side upper chest pain HPI: HPI: Patient is a 50 year old female presented to ER for evaluation of painful tender lymph node on the left side neck area that has been going on for 1 month. Patient denies any cough or fever, no weight loss, no night sweats. Patient denies chest pain or any trouble breathing. Patient denies any headache. Patient had weakness and decreased use of the left upper extremity that been going on for several years now. Review of Systems: Review of Systems: Constitutional: Denies fever or chills. [] Eyes: Denies change in visual acuity. [] HENT: Denies nasal congestion or sore throat. [] Respiratory: Denies cough or shortness of breath. [] Cardiovascular: Denies chest pain or edema. [] GI: Denies abdominal pain, nausea, vomiting, bloody stools or diarrhea. [] : Denies dysuria. [] Musculoskeletal: Denies back pain or joint pain. [] Integument: Denies rash. [] Neurologic: Denies headache, focal weakness or sensory changes. [] Endocrine: Denies polyuria or polydipsia. [] Lymphatic: Painful tender swollen lymph node on the left lower anterior neck area Psychiatric: Denies depression or anxiety. [] Heart Score: C/O Chest Pain: N/A Risk Factors: Risk Factors: DM, Current or recent (<one month) smoker, HTN, HLP, family history of CAD, obesity. Risk Scores: Score 0 - 3: 2.5% MACE over next 6 weeks - Discharge Home Score 4 - 6: 20.3% MACE over next 6 weeks - Admit for Clinical Observation Score 7 - 10: 72.7% MACE over next 6 weeks - Early Invasive Strategies Allergies: Allergies: Allergies Coded Allergies Type Severity Reaction Last Updated Verified No Known Drug Allergies 06/09/16 No Physical Exam: PE: Constitutional: Well developed, well nourished, no acute distress, non-toxic appearance. [] HENT: Normocephalic, atraumatic, bilateral external ears normal, oropharynx moist, no oral exudates, nose normal. [] Eyes: PERRLA, EOMI, conjunctiva normal, no discharge. [] Neck: Normal range of motion, there is a palpable tender swollen lymph node in the left lower anterior neck area in the supraclavicular zone. Cardiovascular:Heart rate regular rhythm, no murmur [] Lungs & Thorax: Bilateral breath sounds clear to auscultation [] Abdomen: Bowel sounds normal, soft, no tenderness, no masses, no pulsatile masses. [] Skin: Warm, dry, no erythema, no rash. [] Back: No tenderness, no CVA tenderness. [] Extremities: No tenderness, no cyanosis, no clubbing, ROM intact, no edema. [] Neurologic: Alert and oriented X 3, normal motor function, normal sensory function, no focal deficits noted. [] Psychologic: Affect normal, judgement normal, mood normal. [] Current Patient Data: Labs: Laboratory Tests Test 11/24/20 23:45 11/25/20 00:30 White Blood Count 8.0 x10^3/uL Red Blood Count 4.56 x10^6/uL Hemoglobin 8.5 g/dL Hematocrit 27.2 % Mean Corpuscular Volume 60 fL Mean Corpuscular Hemoglobin 19 pg Mean Corpuscular Hemoglobin Concent 31 g/dL Red Cell Distribution Width 19.8 % Platelet Count 193 x10^3/uL Neutrophils (%) (Auto) 47 % Lymphocytes (%) (Auto) 42 % Monocytes (%) (Auto) 7 % Eosinophils (%) (Auto) 4 % Basophils (%) (Auto) 0 % Neutrophils # (Auto) 3.7 x10^3/uL Lymphocytes # (Auto) 3.3 x10^3/uL Monocytes # (Auto) 0.6 x10^3/uL Eosinophils # (Auto) 0.3 x10^3/uL Basophils # (Auto) 0.0 x10^3/uL Platelet Estimate Adequate Polychromasia Slight Hypochromasia Slight Microcytosis Mod Ovalocytes Occ Rouleau Present Sodium Level 138 mmol/L Potassium Level 3.5 mmol/L Chloride Level 103 mmol/L Carbon Dioxide Level 26 mmol/L Anion Gap 9 Blood Urea Nitrogen 6 mg/dL Creatinine 0.7 mg/dL Estimated GFR (Cockcroft-Gault) 88.2 BUN/Creatinine Ratio 9 Glucose Level 90 mg/dL Calcium Level 8.7 mg/dL Total Bilirubin 0.3 mg/dL Aspartate Amino Transf (AST/SGOT) 31 U/L Alanine Aminotransferase (ALT/SGPT) 30 U/L Alkaline Phosphatase 67 U/L Total Protein 7.7 g/dL Albumin 4.0 g/dL Albumin/Globulin Ratio 1.1 Current Medications Medications (Trade) Dose Ordered Sig/Abel Route PRN Reason Start Time Stop Time Status Last Admin Dose Admin Iohexol (Omnipaque 300 Mg/ml) 75 ml 1X ONCE IV 11/25/20 02:00 11/25/20 02:01 DC 11/25/20 02:01 Info (CONTRAST GIVEN -- Rx MONITORING) 1 each PRN DAILY PRN MC SEE COMMENTS 11/25/20 02:00 11/27/20 01:59 Ketorolac Tromethamine (Toradol 30mg Vial) 30 mg 1X ONCE IVP 11/25/20 03:00 11/25/20 03:01 DC 11/25/20 03:05 EKG: EKG: [] Radiology/Procedures: Radiology/Procedures: [][facility] [address] [place], [place] [id number] IMAGING REPORT Signed PATIENT: LUIS MANUEL BATES ACCOUNT: [id number] : 1970 LOCATION: ER AGE: 50 SEX: F EXAM STATUS: REG ER ORD. PHYSICIAN: JOSÉ GREEN DO REASON: LEFT SIDE CHEST PAIN, SWOLLEN LYMPH NODES, ABDOMINAL PAIN PROCEDURE: CT CHEST ABD PELVIS W/CONTRAST EXAM: CT OF THE CHEST, ABDOMEN AND PELVIS WITH CONTRAST. HISTORY: Left chest pain, abdominal pain, lymphadenopathy. TECHNIQUE: Computed tomography of the chest, abdomen and pelvis was performed after the intravenous administration of iodinated contrast. One or more of the following individualized dose reduction techniques were utilized for this exami nation: 1. Automated exposure control. 2. Adjustment of the mA and/or kV according to patient size. 3. Use of iterative reconstruction technique. COMPARISON: 03/27/2020. FINDINGS: Bone windows reveal no suspicious lesions. Left axillary lymph nodes are asymmetrically prominent but have fatty ileana. There are no enlarged mediastinal lymph nodes. There is no pleural or perica rdial effusion. The heart is not enlarged. There is a common origin of the left common carotid and brachiocephalic arteries, a variant of normal. Lung windows reveal no infiltrates. A 4 mm cyst in the left kidney is likely benign. A hypoattenuating lesion at the right lower pole measures 17 x 14 mm and 45 Hounsfield units. It appears stable since 2017 and is likely a benign proteinaceous cyst. The liver, gallbladder, pancreas, adrenal glands and spleen are unremarkable. There are no pathologically enlarged lymph nodes. A 14 mm fibroid is noted along the right aspect of the fundus. There is a prominent nabothian cyst at the cervix. The appendix is not inflamed. There is no small bowel obstruction. IMPRESSION: 1. Asymmetrically mildly prominent left axillary lymph nodes are likely reactive. Correlate for left upper extremity or chest wall inflammation. 2. A 17 mm hypoattenuating lesion in the right renal lower pole appears stable chronically and is likely a proteinaceous cyst. 3. 14 mm uterine fibroid. Electronically signed by: Vincenzo Hernández MD (11/25/2020 3:18 AM) [facility] DICTATED and SIGNED BY: RICH HERNÁNDEZ MD DATE: 11/25/20 [id number] 0 Course & Med Decision Making: Course & Med Decision Making Pertinent Labs and Imaging studies reviewed. (See chart for details) Patient is a 50-year-old female who presents to ER due to painful tender swollen lymph node in the supraclavicular area on the left side suspicious for malignancy, therefore CT scan of the abdomen pelvis chest with contrast was done, did not show any acute problem. Patient was discharged home in stable condition. Dragon Disclaimer: Dragon Disclaimer: This electronic medical record was generated, in whole or in part, using a voice recognition dictation system. Departure Departure Impression: Primary Impression: Swelling of lymph nodes Disposition: HOME / SELF CARE / HOMELESS Condition: STABLE Referrals: JACOB GOETZ MD (PCP) Follow up with your doctor this week Additional Instructions: Lymphadenopathy or adenopathy is a disease of the lymph nodes, in which they are abnormal in size or consistency. Lymphadenopathy of an inflammatory type (the most common type) is lymphadenitis, producing swollen or enlarged lymph nodes. Swollen Lymph Nodes Usually, swollen lymph nodes aren't a reason to worry. Theyre simply a sign that your immune system is fighting an infection or illness. But if theyre e nlarged with no obvious cause, see your doctor to rule out something more serious. Appointments [phone] FIND A PRIMARY CARE PROVIDER REQUEST AN APPOINTMENT SCHEDULE APPOINTMENT IN [facility] Symptoms and Causes Diagnosis and Tests Management and Treatment Prevention [place] / Prognosis OVERVIEW Swollen Lymph Nodes in your armpit. Swollen lymph nodes can occur in your armpits as well as in your neck and groin. What are swollen lymph nodes? When youre not feeling so great, like youre coming down with something, you may notice some swelling on the sides of your neck. Those lumps probably feel soft and tender to the touch and may even hurt a little. Swollen lymph nodes (or what doctors call lymphadenopathy) are common and are actually a good thing. The swelling in these pea- or dorsey-sized lymph nodes are one of your bodys natural reactions to illness or infection. That tells doctors that your bodys healthy and robust immune system is working to clear away infection and/or invading viruses or bacteria. Many people call them swollen glands ? even though theyre really not glands, but part of your lymphatic system. One of your bodys lesser known systems, its in charge of balancing your fluid levels. Your swollen glands act like filters that help your body get rid of germs, cells or other foreign matter that passes through your lymph fluid (a clear or slightly yellowish fluid made up of white blood cells, proteins and fats). And when you think of swollen glands, you most likely think of swelling in your neck. But the lymph nodes in your groin, under your chin and your armpits can swell too. You can even move them slightly with your fingers. You also have lymph nodes throughout your body that you cant feel. Theres a network of about 600 of them (the exact count actually varies by person) in your: Jaw. Chest. Arms. Abdomen. Legs. What causes swollen lymph nodes? The most common cause of lymph node swelling in your neck is an upper respiratory infection, which can take 10 to 14 days to resolve completely. As soon as you start feeling better, the swelling should go down as well, though it may take a few weeks longer to go away completely. Other bacteria and viruses that may cause your lymph nodes to become swollen include: Cold and flu. Sinus infections. Strep throat. Skin wounds. Mononucleosis. Your lymph nodes get larger when more blood cells come to fight off an invading infection. They all essentially pile in, causing pressure and swelling. Often, the lymph nodes that swell will be close to the infections site. (That means a person with strep throat might develop swollen lymph nodes in their neck.) JOSÉ GREEN DO Nov 24, 2020 23:07
[2020-11-25 00:08] LABS: BASO % 0 % (0-3); EOS # 0.3 x10^3/uL (0.0-0.7); EOS % 4 % (0-3); HEMATOCRIT 27.2 % (36.0-47.0); HEMOGLOBIN 8.5 g/dL (12.0-15.5); LYMPH # 3.3 x10^3/uL (1.0-4.8); LYMPH % 42 % (24-48); MEAN CORPUSCULAR HEMOGLOBIN 19 pg (25-35); MEAN CORPUSCULAR HGB CONC 31 g/dL (31-37); MEAN CORPUSCULAR VOLUME 60 fL (79-100); MONO # 0.6 x10^3/uL (0.0-1.1); MONO % 7 % (0-9); NEUT # 3.7 x10^3/uL (1.8-7.7); NEUT % 47 % (31-73); PLATELET COUNT 193 x10^3/uL (140-400); RED BLOOD COUNT 4.56 x10^6/uL (3.50-5.40); RED CELL DISTRIBUTION WIDTH 19.8 % (11.5-14.5)
[2020-11-25 01:18] LABS: CALCIUM 8.7 mg/dL (8.5-10.1); CREATININE 0.7 mg/dL (0.6-1.0); GFR 88.2; POTASSIUM 3.5 mmol/L (3.5-5.1)
[2020-11-25 01:24] LABS: ALBUMIN/GLOBULIN RATIO 1.1 (1.0-1.7); TOTAL BILIRUBIN 0.3 mg/dL (0.2-1.0); TOTAL PROTEIN 7.7 g/dL (6.4-8.2)
[2020-11-25] MEDS ORDERED: IOHEXOL 300 MG/ML 100ML VIAL. IV ONE (02:00)
[2020-11-25] MEDS ORDERED: CONTRAST GIVEN. MC PRN (02:00)
[2020-11-25 02:30] LABS: HYPOCHROMIA SLIGHT; MICROCYTOSIS MOD; OVALOCYTES OCC; PLT ESTIMATE ADEQUATE (ADEQUATE); POLYCHROMASIA SLIGHT; ROULEAUX PRESENT
[2020-11-25 03:00] VITALS: BP 167/106
[2020-11-25] MEDS ORDERED: KETOROLAC 30 MG/ML VIAL. IVP ONE (03:00)
--- NOTE | 2020-11-25 03:21 | RAD ---
EXAM: CT OF THE CHEST, ABDOMEN AND PELVIS WITH CONTRAST. HISTORY: Left chest pain, abdominal pain, lymphadenopathy. TECHNIQUE: Computed tomography of the chest, abdomen and pelvis was performed after the intravenous a dministration of iodinated contrast. One or more of the following individualized dose reduction techn iques were utilized for this examination: 1. Automated exposure control. 2. Adjustment of the mA and/or kV according to patient size. 3. Use of iterative reconstruction technique. COMPARISON: 03/27/2020. FINDINGS: Bone windows reveal no suspicious lesions. Left axillary lymph nodes are asymmetrically prominent but have fatty ileana. There are no enlarged med iastinal lymph nodes. There is no pleural or pericardial effusion. The heart is not enlarged. There i s a common origin of the left common carotid and brachiocephalic arteries, a variant of normal. Lung windows reveal no infiltrates. A 4 mm cyst in the left kidney is likely benign. A hypoattenuating lesion at the right lower pole rex sures 17 x 14 mm and 45 Hounsfield units. It appears stable since 2017 and is likely a benign protein aceous cyst. The liver, gallbladder, pancreas, adrenal glands and spleen are unremarkable. There are no pathologic ally enlarged lymph nodes. A 14 mm fibroid is noted along the right aspect of the fundus. There is a prominent nabothian cyst at the cervix. The appendix is not inflamed. There is no small bowel obstruction. IMPRESSION: 1. Asymmetrically mildly prominent left axillary lymph nodes are likely reactive. Correlate for left upper extremity or chest wall inflammation. 2. A 17 mm hypoattenuating lesion in the right renal lower pole appears stable chronically and is lik wendie a proteinaceous cyst. 3. 14 mm uterine fibroid. Electronically signed by: Vincenzo Hernández MD (11/25/2020 3:18 AM) [facility]
== END 2020-11-25 03:43 | disposition home or self-care (01) ==
LOC: ER 20:50
DX: R59.9 Enlarged lymph nodes, unspecified (principal); R07.89 Other chest pain; K21.9 Gastro-esophageal reflux disease without esophagitis; G89.29 Other chronic pain
CPT/HCPCS: 36415; 71260; 74177; 80053; 85025; 96374; 99285; J1885; Q9967